=== PATIENT | male | born 1935 | race Caucasian/White ===

== ENCOUNTER 2017-03-18 06:55 | Outpatient (CLI) ==
[2015-09-21 15:29] VITALS: BMI 42.2
--- NOTE | 2017-03-19 13:25 | ECHO2D ---
Date of Exam: 03/18/17 Ordering Physician: BUD MARTINES Reason for Echo: SOB M-Mode Normal Adult Results LV Dimensions Normal Adult Results AoV Opening excursions >1.6 >1.6 LVEDD-base- 3.5-5.8 5.1 Ao root dimensions 2.0-3.7 3.6 LVESD-base- 3.1-4.6 L. Atrium dimensions 1.9-3.8 4.5 Post. Wall thickness 0.8-1.1 1.5 IV septum (thickness) 0.7-1.2 1.3 Post. Wall excursion 0.72-1.3 NORMAL Septal motion NORMAL Systolic motion R. Ventricular cavity 1.5-2.0 NORMAL LVEF 60% 67% Paradoxical septal wall motion NORMAL 2-D : NORMAL LEFT VENTRICULAR CONTRACTILITY--NORMAL VALVES--NO EFFUSION, NO THROMBUS, ENLARGED LEFT ATRIAL CAVITY--NORMAL LEFT VENTRICLE SIZE M-MODE: MV: NORMAL AV: NORMAL TV: NORMAL PV: CHAMBER SIZE: ENLARGED LEFT ATRIAL CAVITY WALL MOTION: NORMAL PERICARDIUM: NORMAL INTERPRETATION: 1. LEFT VENTRICULAR HYPERTROPHY WITH ENLARGED LEFT ATRIAL CAVITY (4.5CM) 2. NORMAL LEFT VENTRICULAR CONTRACTILITY 3. NORMAL VALVES MTDD
== END 2017-03-18 06:56 | disposition home or self-care (01) ==
LOC: CAR 06:55
PROVIDERS: ATTEND Internal Medicine
DX: R06.02 Shortness of breath (principal)
CPT/HCPCS: 93005; 93010

== ENCOUNTER 2017-03-19 06:48 | Outpatient (CLI) ==
[2015-09-21 15:29] VITALS: BMI 42.2
--- NOTE | 2017-03-19 13:01 | ECHOSTRESS ---
Date of Exam: 03/19/17 Ordering Physician: BUD MARTINES Reason for Echo: SOB, STRESS TEST--NO ISCHEMIA M-Mode Normal Adult Results LV Dimensions Normal Adult Results AoV Opening excursions >1.6 LVEDD-base- 3.5-5.8 Ao root dimensions 2.0-3.7 LVESD-base- 3.1-4.6 L. Atrium dimensions 1.9-3.8 Post. Wall thickness 0.8-1.1 IV septum (thickness) 0.7-1.2 Post. Wall excursion 0.72-1.3 Septal motion Systolic motion R. Ventricular cavity 1.5-2.0 LVEF 60% Paradoxical septal wall motion 2-D: NORMAL LEFT VENTRICULAR CONTRACTILITY--RESTING AND POST EXERCISE M-MODE: MV: AV: TV: PV: CHAMBER SIZE: WALL MOTION: NORMAL LEFT VENTRICULAR CONTRACTILITY--RESTING AND POST EXERCISE PERICARDIUM: INTERPRETATION: 1. NORMAL LEFT VENTRICULAR CONTRACTILITY--RESTING AND POST EXERCISE MTDD
--- NOTE | 2017-03-19 13:15 | STRESSMOD ---
Ordering Physician: BUD MARTINES Date of Test: 03/19/17 Medical History: SOB Current Medications: LISINOPRIL, GABAPENTIN, AMLODIPINE, GLIPIZIDE, DYAZIDE, FLOMAX, JANUVIA, METFORMIN, ASA, TAMSULOSIN Physical Findings: S1, S2, NO S3 Resting EKG: SINUS RHYTHM/PREMATURE ATRIAL CONTRACTIONS Target Heart Rate: 119/141 STAGE MPH/GRADE HEART RATE BPM BLOOD PRESSURE mmhg RHYTHM S-T SEGMENT UP DOWN SYMPTOMS,COMMENTS At Rest 80 138/60 SR X NONE 1 1.7/0% 110 150/72 SR X NONE 2 1.7/5% 3 1.7/10% 4 2.5/12% 5 3.4/14% 6 4.2/16% 7 5.18% Immediately after 123 SR X SHORT OF BREATH Total Time: 3:17 Maximum Heart Rate Reached: 123 Reason for Termination: SHORT OF BREATH 3 MINUTES POST EXERCISE: HR 96 BPM, BP 152/60 MMHG INTERPRETATION: 91% OXYGEN SATURATION WITH EXERCISE ON ROOM AIR 1. NO EVIDENCE OF ISCHEMIA BY ST-T WAVE 2. NO CHEST PAIN OR CHEST DISCOMFORT 3. BLOOD PRESSURE RESPONSE: NORMAL 4. FEW PAC'S AT REST AND WITH EXERCISE NORMAL LEFT VENTRICULAR CONTRACTILITY--RESTING AND POST EXERCISE MTDD
== END 2017-03-19 06:49 | disposition home or self-care (01) ==
LOC: CAR 06:48
PROVIDERS: ATTEND Internal Medicine
DX: R06.02 Shortness of breath (principal)

== ENCOUNTER 2017-08-15 16:08 | Inpatient (IN) ==
[2017-08-15] MEDS ORDERED: ATROPINE SULFATE PFS IVP PRN (16:36)
[2017-08-15] MEDS ORDERED: TYLENOL PO PRN (16:36)
[2017-08-15] MEDS ORDERED: NITROSTAT SL PRN (16:36)
[2017-08-15] MEDS ORDERED: VISTARIL INJ IM PRN (16:36)
[2017-08-15] MEDS ORDERED: LEVEMIR SUBCUT STA (16:40)
[2017-08-15 16:46] VITALS: BMI 38.3
[2017-08-15] MEDS ORDERED: PROAIR HFA IH PRN (17:04)
[2017-08-15] MEDS ORDERED: ALBUTEROL 0.083% NEB NEB PRN (17:04)
[2017-08-15] MEDS: SODIUM CHLORIDE 1,000 ML IV SCH (17:07)
[2017-08-15] MEDS: DIFLUCAN PO SCH (17:47)
[2017-08-15] MEDS: GLUCOPHAGE PO SCH (17:47)
[2017-08-15] MEDS: NYSTOP POWDER TP SCH (20:41)
[2017-08-15] MEDS: LOTRISONE 45 GM TP SCH (20:41)
[2017-08-15] MEDS: NEURONTIN PO SCH (20:42)
[2017-08-15] MEDS: NORVASC PO SCH (20:42)
[2017-08-15] MEDS ORDERED: LEVEMIR SUBCUT SCH (21:00)
[2017-08-16] MEDS: SODIUM CHLORIDE 1,000 ML IV SCH ×3 (06:19→19:31)
--- NOTE | 2017-08-16 07:43 | DI ---
EXAM: Chest two views HISTORY: Cough. FINDINGS: Compared to 09/21/2015. Heart size remains normal. Chronically elevated right hemidiaphr agm is redemonstrated. Subtle right base density likely represents atelectasis. Minimal pneumonia c ould appear similar although probably less likely. Normal vascularity. No pleural fluid. IMPRESSION: Probable mild right base atelectasis.
[2017-08-16] MEDS: GLUCOPHAGE PO SCH ×2 (08:12→16:29)
[2017-08-16] MEDS: ASPIRIN EC PO SCH (08:12)
[2017-08-16] MEDS: LEVEMIR SUBCUT SCH ×2 (09:15→21:36)
[2017-08-16] MEDS: ZESTRIL PO SCH (09:22)
[2017-08-16] MEDS: DIFLUCAN PO SCH (09:22)
[2017-08-16] MEDS: JANUVIA PO SCH (09:23)
[2017-08-16] MEDS: FLOMAX PO SCH (09:23)
[2017-08-16] MEDS: LOTRISONE 45 GM TP SCH ×3 (09:26→21:38)
[2017-08-16] MEDS: NYSTOP POWDER TP SCH ×3 (09:26→21:39)
[2017-08-16] MEDS: NEURONTIN PO SCH ×2 (09:27→21:35)
--- NOTE | 2017-08-16 10:28 | PCM.PROG ---
Attending Provider: ATTENDING PROVIDER: Dr. BUD MARTINES This patient is seen with Meri Kent, Nurse Practitioner. DATE OF SERVICE: 08/16/17 SUBJECTIVE: This 82 year old WHITE/ M was hospitalized 08/15/17. The patient is lying in bed alert. The patient is still weak and tired. Glucose still elevated after starting Levemir. REVIEW OF SYSTEMS: CONSTITUTIONAL: Positive for fatigue and weakness. No night sweats. lethargy. No fever or chills. HEENT: Eyes: No visual changes. No eye pain. No eye discharge. ENT: No runny nose. No epistaxis. No sinus pain. No odynophagia. No congestion. RESPIRATORY: No cough, no congestion. No hemoptysis. No shortness of breath. CARDIOVASCULAR: No angina symptoms. No CHF symptoms. No atypical chest pain for CAD. No palpitations. No orthopnea.. GASTROINTESTINAL: No abdominal pain. No nausea or vomiting. No diarrhea or constipation. No hematemesis. No hematochezia. GENITOURINARY: Positive for polyuria. No hematuria. No obstructive symptoms. No discharge. No pain. No significant abnormal bleeding. MUSCULOSKELETAL: No musculoskeletal pain; no joint swelling. NEUROLOGICAL: Awake, alert, oriented to time, place and person. No headache. No neck pain. No syncope. No seizures. No dizziness. PSYCHIATRIC: Not anxious. No depression. No suicidal thoughts. No homicidal thoughts. SKIN: Positive for yeast rash in groin area. No lesions. No wounds. ENDOCRINE: No unexplained weight loss. No weight gain. HEMATOLOGIC/LYMPHATIC: No anemia. No purpura. No petechiae. No prolonged or excessive bleeding. No palpable lymph nodes. PHYSICAL EXAMINATION: GENERAL: The patient is awake, alert and oriented, lying/sitting in bed in no distress. VITAL SIGNS: Temperature 98.0 F, Pulse 68, Respiratory Rate 18, BP 119/60, Pulse Ox 92% HEENT: Head normocephalic, atraumatic. Eyes: Extraocular muscles are intact. Pupils are equal, round and reactive to light and accommodation. Ears: No lesions. Nose appeared normal. Throat: No exudate or erythema. NECK: Supple. No JVD, no carotid bruit. No lymphadenopathy or thyromegaly. LUNGS: Diminished breath sounds. Clear to auscultation. Percussion note normal. Chest symmetrical. HEART: S1, S2, no S3. No murmurs. No cyanosis or clubbing. No ascites. Pulses: Dorsalis pedis and posterior tibial pulses +1 to +2 both sides. ABDOMEN: Soft. Non-tender. Bowel sounds active. No CVA tenderness. No mass felt. EXTREMITIES: No edema. Full range of motion of all extremities, equal. NEUROLOGIC: No focal deficit. Cranial nerves II through XII are grossly intact. No headache, no double vision or headache. SKIN: Red excoriation in groin area. Warm and dry. Intact. Turgor-normal. LYMPHATIC: No palpable lymph nodes/no lymphedema. MUSCULOSKELETAL: Normal joints with no swelling. Muscle tone is normal. LAB REVIEW: 08/16/17 04:02 08/16/17 04:02 08/16/17 04:02: Sodium 133 L, Potassium 4.1, Chloride 100, Carbon Dioxide 27, Anion Gap 10.1, BUN 41 H, Creatinine 1.52 H, Estimated GFR (MDRD) 44.00, BUN/ Creatinine Ratio 26.97, Glucose 424 H D, Calcium 9.0, Total Bilirubin < 0.3, AST 12 L, ALT 17, Alkaline Phosphatase 77, Total Protein 5.7 L, Albumin 2.4 L, Globulin 3.3, Albumin/Globulin Ratio 0.73 08/16/17 04:02: WBC 7.49, RBC 3.98 L, Hgb 11.4 L, Hct 34.3 L, MCV 86.2, MCH 28.6 , MCHC 33.2, RDW Coeff of Toby 12.7, Plt Count 230, Immature Gran % (Auto) 0.3, Neut % (Auto) 64.1, Lymph % (Auto) 24.0, [place] % (Auto) 7.1, Eos % (Auto) 4.1, Baso % (Auto) 0.4, Immature Gran # (Auto) 0.0, Neut # 4.8, Lymph # 1.8, [place] # 0.5, Eos # 0.3, Baso # 0.0 08/15/17 23:20: Urine Color Yellow, Urine Clarity Turbid, Urine pH 5.0, Ur Specific [place] 1.010, Urine Protein Negative, Urine Glucose (UA) 2+, Urine Ketones Trace, Urine Blood 1+, Urine Nitrite Negative, Urine Bilirubin Negative , Urine Urobilinogen 0.2, Ur Leukocyte Esterase 1+, Urine Microscopic WBC Tntc, Ur Squamous Epith Cells 2-5, Urine Bacteria 1+, Urine Mucus 1+ 08/15/17 17:04: B-Natriuretic Peptide 16 08/15/17 17:04: Sodium 129 L, Potassium 4.6, Chloride 96 L, Carbon Dioxide 23, Anion Gap 14.6, BUN 41 H, Creatinine 1.92 H, Estimated GFR (MDRD) 34.00, BUN/ Creatinine Ratio 21.35, Glucose 632 H*, Calcium 9.2, Total Bilirubin 0.3, AST 12 L, ALT 21, Alkaline Phosphatase 84, Total Protein 6.1, Albumin 2.6 L, Globulin 3.5, Albumin/Globulin Ratio 0.74, TSH 1.702, Free T4 1.10 08/15/17 17:04: WBC 9.91, RBC 4.16 L, Hgb 12.2 L, Hct 35.6 L, MCV 85.6, MCH 29.3 , MCHC 34.3, RDW Coeff of Toby 12.8, Plt Count 252, Immature Gran % (Auto) 0.6, Neut % (Auto) 72.3, Lymph % (Auto) 18.5, [place] % (Auto) 6.0, Eos % (Auto) 2.2, Baso % (Auto) 0.4, Immature Gran # (Auto) 0.1, Neut # 7.2 H, Lymph # 1.8, [place] # 0.6, Eos # 0.2, Baso # 0.0 08/15/17 16:41: Puncture Site Rr, O2 Saturation 92.0 L, ABG pH 7.356, ABG pCO2 40.9, ABG pO2 67.0 L, ABG HCO3 22.9, ABG Total CO2 24, ABG Base Excess -3 L, Srinivasa Test +, FiO2 % 21.0 ASSESSMENT: 1. Diabetes mellitus Type 2, uncontrolled 2. Skin candidiasis in groin area 3. Polyuria 4. Fatigue 5. Chronic kidney disease PLAN: 1. Clean catch 2. Increase Levemir to 30 mg twice a day Plan and coordination of the patient's care discussed in the presence of Flooring Sales Manager and nurse. CONDITION: Stable SCRIBED BY: RON CARROLL Geologic Technician scribed while in presence of service performed by Dr. Martines/Meri Kent APRN on 08/16/17 ([id number])
[2017-08-16] MEDS: NORVASC PO SCH (21:36)
[2017-08-16] MEDS: HUMULIN R SUBCUT PRN (21:37)
[2017-08-17] MEDS: DIFLUCAN PO SCH (09:09)
[2017-08-17] MEDS: FLOMAX PO SCH (09:09)
[2017-08-17] MEDS: GLUCOPHAGE PO SCH ×2 (09:10→17:29)
[2017-08-17] MEDS: ASPIRIN EC PO SCH (09:10)
[2017-08-17] MEDS: JANUVIA PO SCH (09:10)
[2017-08-17] MEDS: ZESTRIL PO SCH (09:10)
[2017-08-17] MEDS: NEURONTIN PO SCH ×2 (09:10→20:31)
[2017-08-17] MEDS: LEVEMIR SUBCUT SCH ×2 (09:11→21:35)
[2017-08-17] MEDS: LOTRISONE 45 GM TP SCH ×2 (09:11→20:31)
[2017-08-17] MEDS: NYSTOP POWDER TP SCH ×2 (09:12→20:31)
[2017-08-17] MEDS: HUMULIN R SUBCUT PRN ×3 (11:21→21:34)
[2017-08-17] MEDS: SODIUM CHLORIDE 1,000 ML IV SCH ×2 (17:22→20:31)
[2017-08-17] MEDS: MORPHINE 4 MG/ML VIAL IVP PRN (22:29)
[2017-08-18] MEDS: HUMULIN R SUBCUT PRN ×4 (05:35→20:53)
[2017-08-18] MEDS: SODIUM CHLORIDE 1,000 ML IV SCH (07:44)
[2017-08-18] MEDS: LEVEMIR SUBCUT SCH ×2 (09:44→20:54)
[2017-08-18] MEDS: GLUCOPHAGE PO SCH ×2 (09:45→16:46)
[2017-08-18] MEDS: DIFLUCAN PO SCH (09:45)
[2017-08-18] MEDS: NEURONTIN PO SCH ×2 (09:45→20:56)
[2017-08-18] MEDS: JANUVIA PO SCH (09:45)
[2017-08-18] MEDS: ZESTRIL PO SCH (09:45)
[2017-08-18] MEDS: LOTRISONE 45 GM TP SCH ×2 (09:46→21:41)
[2017-08-18] MEDS: FLOMAX PO SCH (09:46)
[2017-08-18] MEDS: NYSTOP POWDER TP SCH ×2 (09:46→21:41)
[2017-08-18] MEDS: ASPIRIN EC PO SCH (09:46)
[2017-08-18] MEDS ORDERED: MILK OF MAGNESIA PO PRN (16:17)
[2017-08-18] MEDS: MORPHINE 4 MG/ML VIAL IVP PRN (20:57)
[2017-08-19] MEDS: HUMULIN R SUBCUT PRN (06:15)
[2017-08-19] MEDS: ASPIRIN EC PO SCH (08:51)
[2017-08-19] MEDS: JANUVIA PO SCH (08:51)
[2017-08-19] MEDS: NEURONTIN PO SCH (08:52)
[2017-08-19] MEDS: FLOMAX PO SCH (08:52)
[2017-08-19] MEDS: GLUCOPHAGE PO SCH (08:52)
[2017-08-19] MEDS: LEVEMIR SUBCUT SCH (08:52)
[2017-08-19] MEDS: ZESTRIL PO SCH (08:52)
[2017-08-19] MEDS: LOTRISONE 45 GM TP SCH (08:53)
[2017-08-19] MEDS: NYSTOP POWDER TP SCH (08:53)
--- NOTE | 2017-08-19 09:50 | PCM.PROG ---
Attending Provider: ATTENDING PROVIDER: Dr. BUD MARTINES This patient is seen with Meri Kent, Nurse Practitioner. DATE OF SERVICE: 08/19/17 SUBJECTIVE: This 82 year old WHITE/ M was hospitalized 08/15/17. The patient is sitting in the chair, alert. Fatigue has improved. He is having no urinary incontinence. Sugar has been controlled. The patient states he is comfortable giving injections to himself. Diabetic teaching and education done extensively with he and his . REVIEW OF SYSTEMS: CONSTITUTIONAL: No night sweats. No fatigue, malaise, lethargy. No fever or chills. HEENT: Eyes: No visual changes. No eye pain. No eye discharge. ENT: No runny nose. No epistaxis. No sinus pain. No odynophagia. No congestion. RESPIRATORY: No cough, no congestion. No hemoptysis. No shortness of breath. CARDIOVASCULAR: No angina symptoms. No CHF symptoms. No atypical chest pain for CAD. No palpitations. No orthopnea.. GASTROINTESTINAL: No abdominal pain. No nausea or vomiting. No diarrhea or constipation. No hematemesis. No hematochezia. GENITOURINARY: No urgency. No frequency. No dysuria. No hematuria. No obstructive symptoms. No discharge. No pain. No significant abnormal bleeding. MUSCULOSKELETAL: No musculoskeletal pain; no joint swelling. NEUROLOGICAL: Awake, alert, oriented to time, place and person. No headache. No neck pain. No syncope. No seizures. No dizziness. PSYCHIATRIC: Not anxious. No depression. No suicidal thoughts. No homicidal thoughts. SKIN: No rash. No lesions. No wounds. ENDOCRINE: No unexplained weight loss. No weight gain. HEMATOLOGIC/LYMPHATIC: No anemia. No purpura. No petechiae. No prolonged or excessive bleeding. No palpable lymph nodes. PHYSICAL EXAMINATION: GENERAL: The patient is awake, alert and oriented, sitting in chair in no distress. VITAL SIGNS: Temperature 97.6 F, Pulse 65, Respiratory Rate 16, BP 120/69, Pulse Ox 96% HEENT: Head normocephalic, atraumatic. Eyes: Extraocular muscles are intact. Pupils are equal, round and reactive to light and accommodation. Ears: No lesions. Nose appeared normal. Throat: No exudate or erythema. NECK: Supple. No JVD, no carotid bruit. No lymphadenopathy or thyromegaly. LUNGS: Diminished breath sounds. Clear to auscultation. Percussion note normal. Chest symmetrical. HEART: S1, S2, no S3. No murmurs. No cyanosis or clubbing. No ascites. Pulses: Dorsalis pedis and posterior tibial pulses +1 to +2 both sides. ABDOMEN: Soft. Non-tender. Bowel sounds active. No CVA tenderness. No mass felt. EXTREMITIES: No edema. Full range of motion of all extremities, equal. NEUROLOGIC: No focal deficit. Cranial nerves II through XII are grossly intact. No headache, no double vision or headache. SKIN: Not dry. Intact. Turgor-normal. LYMPHATIC: No palpable lymph nodes/no lymphedema. MUSCULOSKELETAL: Normal joints with no swelling. Muscle tone is normal. LAB REVIEW: 08/19/17 05:43 08/19/17 05:43 08/19/17 05:43: Sodium 138, Potassium 4.7, Chloride 107, Carbon Dioxide 25, Anion Gap 10.7, BUN 21 H, Creatinine 1.04, Estimated GFR (MDRD) 69.00, BUN/ Creatinine Ratio 20.19, Glucose 273 H, Calcium 8.7, Total Bilirubin < 0.3, AST 14 L, ALT 24, Alkaline Phosphatase 72, Total Protein 5.7 L, Albumin 2.4 L, Globulin 3.3, Albumin/Globulin Ratio 0.73 08/19/17 05:43: WBC 6.41, RBC 3.97 L, Hgb 11.5 L, Hct 35.1 L, MCV 88.4, MCH 29.0 , MCHC 32.8, RDW Coeff of Toby 13.0, Plt Count 238, Immature Gran % (Auto) 0.6, Neut % (Auto) 63.6, Lymph % (Auto) 28.5, [place] % (Auto) 6.1, Eos % (Auto) 0.9, Baso % (Auto) 0.3, Immature Gran # (Auto) 0.0, Neut # 4.1, Lymph # 1.8, [place] # 0.4, Eos # 0.1, Baso # 0.0 ASSESSMENT: 1. Diabetes mellitus Type 2, uncontrolled 2. Skin candidiasis in groin area 3. Polyuria, resolved 4. Fatigue improving 5. Chronic kidney disease PLAN: 1. Discharge home 2. Will follow up in office on 3. Continue 4. Levemir 45 subcut b.i.d. 5. Diabetic foot and eye care discussed with the patient. He is comfortable with injections Plan and coordination of the patient's care discussed in the presence of Cytology Supervisor and nurse. CONDITION: Stable SCRIBED BY: RON CARROLL Sales Engineer Account Manager scribed while in presence of service performed by Dr. Martines/Meri Kent APRN on 08/19/17 ([id number])
--- NOTE | 2017-08-19 10:32 | CM.DICTOOL ---
ADMISSION: 08/15/17 16:08 DISCHARGE: 08/19/17 DATE OF SERVICE: 08/19/17 FINAL DIAGNOSIS UNCONTROLLED DM, TYPE 2 CAD HYPERTENSION COPD GERD BPH OSTEOARTHRITIS DEGENERATIVE DISK DISEASE METABOLIC SYNDROME OBESITY, BMI 38.3 APPENDECTOMY CHOLECYSTECTOMY PROSTATE BIOPSY COLONOSCOPY, 2006 PFT, 09/27 (MILD COPD) MODIFIED STRESS ECHO 03/19/17 NO EVIDENCE OF ISCHEMIA BY ST-T WAVE NO CHEST PAIN OR DISCOMFORT BLOOD PRESSURE RESPONSE NORMAL FEW PAC'S AT REST AND WITH EXERCISE NORMAL LEFT VENTRICULAR CONTRACTILITY (67%) RESTING AND POST EXERCISE LVH AND ENLARGED LEFT ATRIAL CAVITY (4.5 CM) LAST VITALS Temp Pulse Resp BP Pulse Ox 97.6 F 65 16 120/69 96 08/19/17 05:59 08/19/17 05:59 08/19/17 05:59 08/19/17 05:59 08/19/17 05:59 ACTIVE HOME MEDICATIONS Albuterol Sulfate (Proair Hfa) 2 puff IH QID PRN PRN Reason: Wheezing Albuterol Sulfate (Albuterol 0.083% Neb) 1 vial NEB QID PRN PRN Reason: Wheezing Amlodipine Besylate (Norvasc) 10 mg PO DAILY (DISCONTINUED) Aspirin (Aspirin Ec) 81 mg PO DAILYWM [facility] Last Admin: 08/19/17 08:51 Dose: 81 mg Gabapentin (Neurontin) 600 mg PO BID [facility] Last Admin: 08/19/17 08:52 Dose: 600 mg Lisinopril (Zestril) 20 mg PO DAILY [facility] Last Admin: 08/19/17 08:52 Dose: 20 mg Metformin HCl (Glucophage) 1,000 mg PO BIDWM [facility] Last Admin: 08/19/17 08:52 Dose: 1,000 mg Sitagliptin Phosphate (Januvia) 100 mg PO DAILY [facility] Last Admin: 08/19/17 08:51 Dose: 100 mg Tamsulosin HCl (Flomax) 0.4 mg PO DAILY [facility] Last Admin: 08/19/17 08:52 Dose: 0.4 mg ALLERGIES Iodinated Contrast- Oral and IV Dye [Iodinated Contrast Media - IV Dye] Adverse Reaction (Severe, Verified 09/21/15 15:13) Anaphylaxis iodine Adverse Reaction (Severe, Verified 09/21/15 15:13) Anaphylaxis NEW PRESCRIPTIONS: LEVEMIR 45 UNITS, ADMINISTER TWICE DAILY, ROTATE INJECTION SITES (OFFICE SAMPLES ) ADMINISTRATION SUPPLIES FOR INSULIN INJECTIONS CLOTRIMAZOLE (LOTRISONE 45 GM), APPLY TO AFFECTED AREA TWICE DAILY (HOSPITAL SUPPLY) NYSTATIN (NYSTOP POWDER), APPLY TO AFFECTED AREA TWICE DAILY (HOSPITAL SUPPLY) DO NOT TAKE YOUR NORVASC (AMLODIPINE BESYLATE) SMOKING: FORMER SMOKER STOPPED COMPLETELY IN 1984 DISEASE SPECIFIC EDUCATION: DIABETES INSULIN INJECTION SELF ADMINISTRATION LEVEMIR INSULIN HYPOGLYCEMIA/HYPERGLYCEMIA FOOT AND EYE CORRECTION MEDICATIONS NEW MEDICATIONS FOLLOW UP LAB REVIEW: 08/19/17 05:43 08/19/17 05:43 08/19/17 05:43: Sodium 138, Potassium 4.7, Chloride 107, Carbon Dioxide 25, Anion Gap 10.7, BUN 21 H, Creatinine 1.04, Estimated GFR (MDRD) 69.00, BUN/ Creatinine Ratio 20.19, Glucose 273 H, Calcium 8.7, Total Bilirubin < 0.3, AST 14 L, ALT 24, Alkaline Phosphatase 72, Total Protein 5.7 L, Albumin 2.4 L, Globulin 3.3, Albumin/Globulin Ratio 0.73 08/19/17 05:43: WBC 6.41, RBC 3.97 L, Hgb 11.5 L, Hct 35.1 L, MCV 88.4, MCH 29.0 , MCHC 32.8, RDW Coeff of Toby 13.0, Plt Count 238, Immature Gran % (Auto) 0.6, Neut % (Auto) 63.6, Lymph % (Auto) 28.5, [place] % (Auto) 6.1, Eos % (Auto) 0.9, Baso % (Auto) 0.3, Immature Gran # (Auto) 0.0, Neut # 4.1, Lymph # 1.8, [place] # 0.4, Eos # 0.1, Baso # 0.0 PLAN: DISCHARGE HOME TODAY RETURN TO SEE DR. MARTINES ON 08/22/17 AT 9:45 A.M. KEEP YOUR APPOINTMENT WITH THE GROUP CAPTAIN AT [facility] ON 08/27/17 AT 9:30 A.M. RESUME YOUR HOME MEDICATIONS DO NOT CONTINUE YOUR NORVASC (AMLODIPINE BESYLATE) NEW PRESCRIPTIONS LEVEMIR 45 UNITS, ADMINISTER TWICE DAILY, ROTATE INJECTION SITES (OFFICE SAMPLES ) ADMINISTRATION SUPPLIES FOR INSULIN INJECTIONS CLOTRIMAZOLE (LOTRISONE 45 GM), APPLY TO AFFECTED AREA TWICE DAILY (HOSPITAL SUPPLY) NYSTATIN (NYSTOP POWDER), APPLY TO AFFECTED AREA TWICE DAILY (HOSPITAL SUPPLY) ACTIVITY GET PLENTY OF REST AT HOME. GRADUALLY INCREASE YOUR ACTIVITY LEVEL ACCORDING TO YOUR TOLERATION DIET 1800 [address] ADA CONSISTENT CARBS SUMMARY THE PATIENT IS ALERT AND ORIENTED X3. HE CURRENTLY RESIDES AT HOME WITH HIS SPOUSE. HE HAS BEEN INDEPENDENT WITH ADL'S AND DESIRES TO RETURN HOME AT DISCHARGE. AT HOME HE HAS OXYGEN, NEBULIZER, GLUCOMETER AND TESTING SUPPLIES. THE NURSING STAFF HAVE PROVIDED TEACHING/TRAINING WITH REGARD TO SELF ADMINISTRATION OF THE LEVEMIR INSULIN. MR. PARRY IS ABLE TO DEMONSTRATE PROPER TECHNIQUE FOR SELF-INJECTIONS. HE AND HIS SPOUSE ARE MOTIVATED TO LEARN MORE ABOUT GAINING CONTROL OF HIS DIABETES THROUGH LIFE-STYLE CHANGES. THEY WILL RETURN TO [facility] FOR FURTHER DIABETIC TEACHING FOLLOWING DISCHARGE. MR. PARRY COMPLAINS OF HAVING NEUROPATHY-TYPE SYMPTOMS IN HIS FEET (BURNING) . HIS SKIN TURGOR IS FAIR TO GOOD AND WITHOUT DECUBITUS ULCERS. HE HAS A FUNGAL RASH AT THE GROIN AREA THAT HAS BEEN TREATED WITH ANTI-FUNGAL OINTMENTS AND POWDER. HE WILL BE INSTRUCTED TO APPLY THE OINTMENT TO THE AFFECTED AREA FOLLOWING DISCHARGE. HE SAYS THE URINARY INCONTINENCE HAS RESOLVED AND THE FATIGUE HE WAS EXPERIENCING PRIOR TO ADMISSION HAS ALSO IMPROVED. HE IS AWARE AND AGREEABLE FOR TODAY'S DISCHARGE PLANS. CURRENT CODE STATUS FULL CODE SHANNON CONTI APRN BUD MARTINES M.D.
[2017-08-19 10:46] VITALS: BP 131/66; TEMP 98.5
--- NOTE | 2017-08-20 09:15 | PN ---
DATE OF SERVICE: 08/18/17 SUBJECTIVE: 82 year old white male hospitalized with uncontrolled diabetes mellitus, weakness, dehydration. The patient's condition has steadily improved. His kidney functions have improved. He is feeling a lot better and stronger. He is feeling comfortable about Levemir and insulin shots. The patient has been on 40 units twice a day now. His blood sugar is close to 200. REVIEW OF SYSTEMS: CONSTITUTIONAL: No night sweats. No fatigue, malaise, lethargy. No fever or chills. HEENT: Eyes: No visual changes. No eye pain. No eye discharge. ENT: No runny nose. No epistaxis. No sinus pain. No sore throat. No odynophagia. No congestion. RESPIRATORY: No cough, no congestion. No hemoptysis. No shortness of breath. CARDIOVASCULAR: No angina symptoms. No CHF symptoms. No atypical chest pain for CAD. No palpitations. No orthopnea. GASTROINTESTINAL: No abdominal pain. No nausea or vomiting. No diarrhea or constipation. No hematemesis. No hematochezia. GENITOURINARY: No urgency. No frequency. No dysuria. No hematuria. No obstructive symptoms. No discharge. No pain. No significant abnormal bleeding. MUSCULOSKELETAL: No musculoskeletal pain; no joint swelling. NEUROLOGICAL: No headache. No neck pain. No syncope. No seizures. No dizziness. PSYCHIATRIC: Not anxious. No depression. No suicidal thoughts. No homicidal thoughts. SKIN: No rash. No lesions. No wounds. ENDOCRINE: No unexplained weight loss. No weight gain. HEMATOLOGIC/LYMPHATIC: No anemia. No purpura. No petechiae. No prolonged or excessive bleeding. No palpable lymph nodes. PHYSICAL EXAMINATION: GENERAL: The patient is oriented to time, place and person. VITAL SIGNS: Temperature 97.4, pulse 64, respiratory rate 16, blood pressure 110/54 and pulse ox 95%. HEENT: Head normocephalic, atraumatic. Eyes: Extraocular muscles are intact. Pupils are equal, round and reactive to light and accommodation. Ears: No lesions. Nose appeared normal. Throat: No exudate or erythema. NECK: Supple. No JVD, no carotid bruit. No lymphadenopathy or thyromegaly. LUNGS: Decreased breath sounds but clear to auscultation. Percussion note normal. Chest symmetrical. HEART: S1, S2, no S3. No murmurs. No cyanosis or clubbing. No ascites. Pulses: Dorsalis pedis and posterior tibial pulses +1 to +2 both sides. ABDOMEN: Soft. Nontender. Bowel sounds active. No CVA tenderness. No mass felt. EXTREMITIES: No edema. Full range of motion of all extremities, equal. NEUROLOGIC: No focal deficit. Cranial nerves II through XII are grossly intact. No headache, no double vision or headache. SKIN: Not dry. Intact. Turgor - normal. LYMPHATIC: No palpable lymph nodes/no lymphedema. MUSCULOSKELETAL: Normal joints with no swelling. Muscle tone is normal. LABS: Hgb 11.2, hct 33, WBC 7,000 normal differential, creatinine 1, BUN 25, potassium 3.7. Telemetry shows since rhythm. The patient had echocardiogram done to evaluate LV function. The patient has an LVH, enlarged LA cavity, Normal valves and normal LV contractility. ASSESSMENT: 1. Diabetes mellitus 2. Obesity which is almost morbid obesity with BMI of 39 3. Neuropathy 4. Hypertension 5. Dyslipidemia PLAN: 1. Discontinue Telemetry 2. Discontinue IV fluids. 3. The patient was advised workup for coronary insufficiency in a way of a stress test which he has declined at present time. 4. Continue Insulin 5. Educated about diabetes and it's complications. 6. Strongly advised to have eyes checks, complications about the eyes and the kidneys discussed; arthrosclerosis, coronary disease discussed is in the room. CONDITION: Stable PROGNOSIS: Depends on the patient's modification of his lifestyle TIME SPENT: More than 30 minutes. Plan and coordination of the patient's care discussed in the presence of nurse. SIM
--- NOTE | 2017-08-20 09:35 | ECHO2D ---
Date of Exam: 08/18/17 Ordering Physician: BUD MARTINES Room #: 114 Reason for Echo: DM2, HTN, CARDIOMEGALY, SOB M-Mode Normal Adult Results LV Dimensions Normal Adult Results AoV Opening excursions >1.6 >1.6 LVEDD-base- 3.5-5.8 4.5 Ao root dimensions 2.0-3.7 3.6 LVESD-base- 3.1-4.6 L. Atrium dimensions 1.9-3.8 4.6 Post. Wall thickness 0.8-1.1 1.5 IV septum (thickness) 0.7-1.2 1.5 Post. Wall excursion 0.72-1.3 NORMAL Septal motion NORMAL Systolic motion R. Ventricular cavity 1.5-2.0 NORMAL LVEF 60% 68% Paradoxical septal wall motion NORMAL 2-D : 2-D M Mode Echocardiogram was performed using apical four chamber and left parasternal long and short axis views. Mitral, tricuspid and aortic valves appear to be normal. Contractility of the left ventricle seems to be normal, so is the cavity size. Enlarged left atrial cavity. Aortic root appears to be normal. There is no pericardial effusion. There is no thrombus noted in the left ventricular or left aortic cavity. No mitral valve prolapse noted. M-MODE: MV: NORMAL AV: NORMAL TV: NORMAL PV: CHAMBER SIZE: ENLARGED LEFT ATRIAL CAVITY WALL MOTION: NORMAL PERICARDIUM: NORMAL INTERPRETATION: 1. LEFT VENTRICULAR HYPERTROPHY WITH ENLARGED LEFT ATRIAL CAVITY 2. NORMAL LEFT VENTRICULAR CONTRACTILITY 3. NORMAL VALVES MTDD
--- NOTE | 2017-08-22 12:47 | PN ---
DATE OF SERVICE: 08/19/17 SUBJECTIVE: 82 year old white male hospitalized with uncontrolled diabetes mellitus. The patient's condition has steadily improved. The patient was seen and examined with the nurse practitioner. The patient has been thoroughly explained about diabetes and its complications in detail involving the eyes. Advised strongly to have eye MD examine him every year and now as soon as possible. Also discussed about neuropathy, diabetic food ulcers and how to take care of the feet. Also talked about kidneys and the effect on the kidneys from diabetes. He has to bring A1C between 6 to 7. He seems to be determined. CONDITION: Stable. MTDD
--- NOTE | 2017-08-22 12:49 | PN ---
BILLING 08/15/17 LEVEL 5 08/16/17 INTERMEDIATE 08/17/17 INTERMEDIATE 08/18/17 INTERMEDIATE 08/19/17 D MTDD
--- NOTE | 2017-08-28 09:46 | HP ---
DATE OF SERVICE: 08/15/17 HISTORY OF PRESENT ILLNESS: This is a 82-year-old patient who had glucose of 466 yesterday, 475 today. He has a rash in groin and feeling bad. Incontinent, polyuria, polydipsia and weak. His abdomen feels bloated. Medications have not changed. PAST MEDICAL HISTORY: Hypertension Diabetes mellitus Type 2 CKD stage 3 Obesity LVH Neuropathy DJD spine Elevated PSA Chronic bronchitis PAST SURGICAL HISTORY: Colonoscopy 2006 Appendix Eye (right and left) Gallbladder REVIEW OF SYSTEMS: CONSTITUTIONAL: No fever, no fatigue. HEENT: No sinus drainage, no sore throat. RESPIRATORY: No cough, no congestion. CARDIOVASCULAR: No atypical chest pain for coronary artery disease. No angina , CHF symptoms, palpitations or shortness of breath. GASTROINTESTINAL: No melena or abdominal pain. No GERD. GENITOURINARY: No hematuria, no prostatism, no polyuria. BUILDING RIGGER: No blackout, no dizziness, no headache, no double vision. MUSCULOSKELETAL: No osteoarthritis pain, no joint swelling. ENDOCRINE: No weight loss, no weight gain. SKIN: Not dry, no rash. PSYCHIATRIC: Not anxious, no depression, no suicidal thoughts, no homicidal thoughts. SOCIAL HISTORY: ; children 7; retired. Smoker - 1.5 packs per day for 20 years, quit 1979. No illicit drug use. FAMILY HISTORY: Father is . Mother is . Brother(s) 4; sister(s) 7. MEDICATIONS: (HOME) Januvia Glucophage Zestril Aspirin Norvasc ProAir Hfa Albuterol Gabapentin Flomax ALLERGIES: IODINE- X-RAY DYE PHYSICAL EXAMINATION: V/S: Pulse 92, BP 122/40, temperature 97.3, 02 sat 95%. Weight 243.6 lbs; height 5'7". GENERAL APPEARANCE: Oriented times three. HEENT: Normal. NECK: No JVP, no bruits. RESPIRATORY: Decreased breath sounds. Lungs are clear. CARDIOVASCULAR: S1, S2, no S3, no murmurs. No cyanosis, clubbing. No ascites. GI/ABDOMEN: No tenderness. Bowel sounds are active. EXTREMITIES: Trace edema, pulses +1, equal. BUILDING RIGGER: Deep tendon reflexes, sensory, motor and gait all normal. RECTAL/PROSTATE: 09/28 Dr. Ivey. Colonoscopy 2006, refused. Foot care discussed. ASSESSMENT: 1. DIABETES MELLITUS, UNCONTROLLED 2. DERMATITIS GROIN FUNGAL/BALANITIS 3. WEIGHT LOSS/POLYURIA/POLYDIPSIA 4. CHRONIC BRONCHITIS 5. COPD 6. DIABETES MELLITUS TYPE 2 7. DJD SPINE 8. OBESITY 9. HYPERTENSION/LVH 10. ELEVATED PSA 11. SHORTNESS OF BREATH/FATIGUE 12. NEUROPATHY PLAN: 1. Admit with routine telemetry orders 2. Insulin shot teaching 3. Cardiac markers 4. 1000 cc's NS 12 hourly 5. Accu-Check with coverage 6. 20 units Levemir subcut once STAT and twice a day 7. ABG now 8. T4, TSH, BNP 9. Lotrisone cream and Nystatin powder to groin b.i.d. 10. Baby ASA per day 11. Diflucan 150 mg p.o. daily times three days 12. Metformin 1000 mg p.o. b.i.d. 13. Lisinopril 20 mg p.o. daily 14. Gabapentin 600 mg p.o. b.i.d. 15. Amlodipine 10 mg p.o.a t h.s. daily 16. Januvia 100 mg p.o. daily 17. Daily CBC and CMP 18. Flomax 0.4 mg p.o. daily 19. Dietary consult TIME SPENT: More than 70 minutes. MTDD
--- NOTE | 2017-09-06 10:05 | DS ---
DATE OF SERVICE: 08/19/17 FINAL DIAGNOSIS: 1. DIABETES MELLITUS, UNCONTROLLED 2. HYPERTENSION 3. COPD 4. GERD 5. BPH 6. OSTEOARTHRITIS 7. DEGENERATIVE DISK DISEASE 8. METABOLIC SYNDROME 9. OBESITY, BMI 38.3 10. LVH BY ECHO 11. APPENDECTOMY 12. CHOLECYSTECTOMY 13. PROSTATE BIOPSY 14. COLONOSCOPY, 2006 15. PFT 09/27 (MILD COPD) 16. MODIFIED STRESS ECHO 03/19/17 17. NO EVIDENCE OF ISCHEMIA BY ST-T WAVE 18. NO CHEST PAIN OR DISCOMFORT 19. BLOOD PRESSURE RESPONSE NORMAL 20. FEW PAC'S AT REST AND WITH EXERCISE 21. NORMAL LEFT VENTRICULAR CONTRACTILITY (67%) RESTING AND POST EXERCISE 22. LVH AND ENLARGED LEFT ATRIAL CAVITY (4.5 CM) LAST V/S: Temperature 97.6, pulse 65, respiratory rate 16, BP 120/69, pulse ox 96 DISCHARGE INSTRUCTIONS: 1. Return to see Dr. Woods on 08/22/17 at 9:45 a.m. 2. Keep your appointment with the information technology instructor at [facility] on 08/27 at 9:30 a.m. 3. Resume your home medications. Do not continue your Norvac (Amlodipine Besylate) MEDICATIONS AT DISCHARGE: Albuterol (ProAir Hfa) two puff IH q.i.d. p.r.n. Albuterol one vial neb q.i.d. p.r.n. Amlodipine (NORVASC) DISCONTINUED Aspirin 81 mg p.o. daily with meal Neurontin 600 mg p.o. b.i.d. DORCAS Zestril 20 mg p.o. daily DORCAS Glucophage 1,000 mg p.o. b.i.d. with meal DORCAS Januvia 100 mg p.o. daily DORCAS Flomax 0.4 mg p.o. daily DORCAS NEW PRESCRIPTIONS: Levemir 45 units, administer twice daily, Rotate injection sites (office samples ) Administration supplies for insulin injections Clotrimazole (Lotrisone 45 gm) apply to affected area twice daily (hospital supply) Nystatin (Nystop powder) apply to affected area twice daily (hospital supply) DO NOT TAKE YOUR NORVASC (AMLODIPINE BESYLATE) DIET INSTRUCTIONS: 1800 Calorie ADA Consistent Carbs ACTIVITY: Get plenty of rest at home. Gradually increase your activity level according to your toleration. SMOKING: Former smoker Stopped completely in 1984 DISEASE SPECIFIC EDUCATION: Diabetes Insulin injection self administration Levemir Insulin Hypoglycemia/Hyperglycemia Foot and eye custodial medications New medications Follow up HOSPITAL COURSE: This is an 82-year-old white male who was a direct admit from our office. He presented to our office with extreme weakness, urinary incontinence, polyuria, extreme fatigue. He was drowsy, unable to hold his head up. He is experiencing decreased appetite and nausea. The states they checked his blood sugar once at home and was in the 500s. We checked it in the office and the sugar was 536. When he arrived at the hospital on [facility] his sugar was in the 600s. He has been diabetic Type 2 for quite some time, takes 100 mg of Januvia as well as 1000 mg of Metformin twice daily. For some reason this has laurita rocketed and was out of control, probably due to diet and lifestyle. The patient was admitted, started on Levemir initially at 30 units twice daily, which eventually increased. Today, on day of discharge, 45 units twice daily. He was started on IV fluids NS at 75 cc/hr. Today, on day of discharge, his electrolytes are normal. He was not in acidosis yet. Over the course of the past several days, the urinary incontinence has stopped which was likely due to just polyuria and uncontrolled diabetes mellitus type 2. His kidney functions and electrolytes have improved. Today, sodium 138, potassium 4.7, BUN 21, creatinine 1.04, hemoglobin 11.5, hematocrit 35.1, white count 6.41. Extensive diabetic teaching has been done regarding injections of Levemir insulin. We are going to have an outpatient consult with the information technology instructor, his and the patient regarding diabetic diet. Blood sugar control has been discussed extensively with him. Also routine foot and eye care for diabetics has also been discussed. He needs to monitor his blood sugar regularly at home. He has been provided a prescription for a glucose monitor as well as strips to go with it and all the equipment. He will be discharged home today in stable condition. Temperature 97.6, heart rate 65, respirations 16, BP 120/69, pulse ox 96%. His appetite has returned. He is no longer nauseated. Again, his urinary incontinence has resolved. He is not fatigued. He has been up and about walking around. We will followup with him next week in the office. TIME SPENT: More than 60 minutes. SIM
== END 2017-08-19 11:40 | disposition home or self-care (01) | DRG 639 ==
LOC: MEDSURG B 16:08
PROVIDERS: ADMIT Internal Medicine; ATTEND Internal Medicine
DX: E11.65 Type 2 diabetes mellitus with hyperglycemia (principal); J44.9 Chronic obstructive pulmonary disease, unspecified; I10 Essential (primary) hypertension; I12.9 Hypertensive chronic kidney disease with stage 1 through stage 4 chronic kidney disease, or unspecified chronic kidney disease; E11.22 Type 2 diabetes mellitus with diabetic chronic kidney disease; N18.3 Chronic kidney disease, stage 3 (moderate); I51.7 Cardiomegaly; R32 Unspecified urinary incontinence; B37.2 Candidiasis of skin and nail; R53.83 Other fatigue; E78.5 Hyperlipidemia, unspecified; G62.9 Polyneuropathy, unspecified; K21.9 Gastro-esophageal reflux disease without esophagitis; N40.0 Benign prostatic hyperplasia without lower urinary tract symptoms; M19.90 Unspecified osteoarthritis, unspecified site; E88.81 Metabolic syndrome and other insulin resistance; E66.9 Obesity, unspecified; Z79.84 Long term (current) use of oral hypoglycemic drugs; Z79.899 Other long term (current) drug therapy; Z68.38 Body mass index [BMI] 38.0-38.9, adult; Z87.891 Personal history of nicotine dependence
CPT/HCPCS: 36415; 80053; 81001; 82803; 82962; 83880; 84439; 84443; 85025; 87086; 93005; 93010; 97802

== ENCOUNTER 2017-08-29 09:35 | Outpatient (CLI) ==
[2017-08-29 10:59] VITALS: BMI 37.5
== END 2017-08-29 09:36 | disposition home or self-care (01) ==
LOC: DIETCN 09:35
PROVIDERS: ATTEND Internal Medicine
DX: E11.9 Type 2 diabetes mellitus without complications (principal)

== ENCOUNTER 2018-10-01 07:55 | Outpatient (CLI) ==
--- NOTE | 2018-10-01 09:49 | CT ---
EXAM: CT of the abdomen pelvis without contrast History: Abdominal pain and trauma, lower back pain. Right flank pain Comparison: None available. Technique: Multiplanar CT images through the abdomen pelvis were obtained without the administration of IV contrast. Findings: Elevated right hemidiaphragm with right basilar subsegmental atelectasis. Moderate narrow ing of bilateral hip joints with osteophyte formation. No acute osseous abnormalities. Prominent an terior osteophytes within the lumbar spine. The liver is fatty. Status post cholecystectomy. Spleen is unremarkable. No hydronephrosis. 4.5 c m left renal cyst. 1.8 cm hyperattenuating lesion within the left kidney. 5.5 cm cyst within the ri ght kidney containing written calcifications. Adrenal glands are unremarkable. No peripancreatic in flammation. There is some pancreatic atrophy. No bowel obstruction. No bladder wall thickening. P rostate is not enlarged. Fat-containing left inguinal hernia. No free air and no ascites. Impression: 1. No acute findings within the abdomen or pelvis. 2. Hepatic steatosis. 3. Complicated bilateral renal cysts. Recommend follow-up CT or MRI renal mass protocol in 6 months to document stability. 4. Fat-containing left inguinal hernia
--- NOTE | 2018-10-01 10:53 | DI ---
EXAM: AP and oblique views of the bilateral ribs. HISTORY: Rib pain, fall COMPARISON: 08/15/2017 FINDINGS: Elevation of the right hemidiaphragm is again seen with mild right basilar atelectasis. No right or left rib fracture is identified. IMPRESSION: No rib fracture identified.
--- NOTE | 2018-10-01 12:08 | DI ---
EXAM: Three views of the thoracic spine HISTORY: Back pain, fall COMPARISON: 08/15/2017 chest x-ray FINDINGS: The thoracic vertebral bodies are normal in height. There is multilevel anterior osteophyte formatio n. No listhesis is evident. IMPRESSION: No compression deformity or listhesis identified. Mild to moderate multilevel thoracic degenerative disc disease.
--- NOTE | 2018-10-01 12:14 | DI ---
EXAM: Three views of the lumbar spine HISTORY: Low back pain, fall COMPARISON: None available FINDINGS: There are five lumbar-type vertebrae. The lumbar vertebral bodies are normal in height. No signific ant disc height loss is seen. There is prominent multilevel anterior osteophyte formation. No listh esis is identified. Mild to moderate multilevel facet arthropathy is seen. Degenerative changes of both hips are noted. Atherosclerotic calcifications are noted. IMPRESSION: No compression deformity or listhesis identified. Mild multilevel degenerative disc disease with findings suggestive of DISH. Mild to moderate multilevel facet arthropathy.
== END 2018-10-01 07:56 | disposition home or self-care (01) ==
LOC: RAD 07:55
PROVIDERS: ATTEND Internal Medicine
DX: M54.5 Low back pain (principal); R07.81 Pleurodynia; W19.XXXA Unspecified fall, initial encounter

== ENCOUNTER 2018-10-06 07:22 | Outpatient (CLI) ==
--- NOTE | 2018-10-06 09:19 | US ---
EXAM: Renal ultrasound. History: Bilateral renal cysts. Comparison: CT abdomen pelvis 10/01/2018 Technique: Multiple sonographic images through the kidneys were obtained. Color duplex Doppler was used to interrogate vascular flow. Findings: The right kidney measures 12.2 cm in long length demonstrating normal cortical echogenicity without e vidence for hydronephrosis or shadowing calculus. 5.1 cm anechoic right renal cyst. The left kidney measures 11.6 cm in long length demonstrating normal cortical echogenicity without ev idence for hydronephrosis or shadowing calculus. 5.0 cm anechoic left renal cyst. The bladder is not well distended. No focal bladder wall thickening. Impression: Simple bilateral renal cysts
--- NOTE | 2018-10-06 09:25 | CT ---
EXAM: CT of the thoracic spine without contrast History: Thoracic back pain. Comparison: Lumbar spine CT 10/06/2018, thoracic spine radiograph 10/01/2018 Technique: Multiplanar CT images through the thoracic spine were obtained without the administration of IV contrast Findings: Calcified mediastinal lymph nodes. The visualized lungs are clear. No acute fracture or subluxation of the thoracic spine. Mild to moderate multilevel disc space narro wing. Large flowing anterior osteophytes are seen at multiple levels. There is prominent facet hype rtrophy at T10-11 with mild to moderate central canal stenosis. Impression: 1. No acute osseous abnormality of the thoracic spine. 2. Mild to moderate degenerative disc disease. 3. Diffuse idiopathic skeletal hyperostosis of the thoracic spine. 4. Mild to moderate central canal stenosis at T10-11
--- NOTE | 2018-10-06 09:28 | CT ---
EXAM: CT of the lumbar spine without contrast History: Lower back pain. Technique: Multiplanar CT images through the lumbar spine were obtained without the administration o f IV contrast Findings: Partially visualized bilateral renal cysts. Atherosclerotic vascular calcifications of th e abdominal aorta. No acute fracture or subluxation of the lumbar spine. Mild to moderate multileve l disc space narrowing. Large anterior osteophytes are seen. T12-L1: Posterior disc osteophyte complex with mild central canal stenosis. Mild to moderate bilater al bony neural foraminal narrowing secondary to ligamentous and facet hypertrophy. L1-L2: No significant bony central canal stenosis or bony neural foraminal narrowing. L2-L3: Small disc bulge effacing anterior thecal sac with mild central canal stenosis. Mild bilater al bony neural foraminal narrowing secondary to ligamentous and facet hypertrophy. L3-L4: Small disc bulge effacing anterior thecal sac with mild central canal stenosis. Moderate to severe bilateral bony neural foraminal narrowing secondary to ligamentous and facet hypertrophy and w orse on the right. L4-L5: Small disc bulge effacing anterior thecal sac with no significant central canal stenosis. Mo derate to severe bilateral bony neural foraminal narrowing secondary to ligamentous and facet hypertr ophy. L5-S1: No significant bony central canal stenosis. Severe bilateral bony neural foraminal narrowing secondary to ligamentous and facet hypertrophy. Impression: 1. No acute osseous abnormality of the lumbar spine. 2. Degenerative changes with level by level analysis as detailed above. 3. Diffuse idiopathic skeletal hyperostosis
== END 2018-10-06 07:23 | disposition home or self-care (01) ==
LOC: RAD 07:22
PROVIDERS: ATTEND Internal Medicine
DX: N28.1 Cyst of kidney, acquired (principal); M54.9 Dorsalgia, unspecified
CPT/HCPCS: 36415; 82565

== ENCOUNTER 2019-05-12 14:17 | Inpatient (IN) ==
[~2019-05-12 14:17] MED LIST: ALDACTONE ONE; COZAAR ONE; LASIX ONE; ZAROXOLYN ONE
[2019-05-12] MEDS ORDERED: NEURONTIN ONE (15:00)
[2019-05-12] MEDS ORDERED: TYLENOL PO PRN (16:41)
[2019-05-12] MEDS ORDERED: ATROPINE SULFATE PFS IVP PRN (16:41)
[2019-05-12] MEDS ORDERED: VISTARIL INJ IM PRN (16:41)
[2019-05-12] MEDS ORDERED: NITROSTAT SL PRN (16:41)
[2019-05-12] MEDS ORDERED: GLUCOPHAGE ONE ×2 (16:54→17:00)
[2019-05-12] MEDS ORDERED: LEVEMIR SUBCUT ONE ×2 (16:57→17:00)
[2019-05-12] MEDS ORDERED: ZAROXOLYN PO STA (17:34)
[2019-05-12] MEDS ORDERED: GLUCOPHAGE PO SCH (18:00)
[2019-05-12] MEDS ORDERED: LEVEMIR SUBCUT SCH (21:00)
[2019-05-13] MEDS ORDERED: LASIX IVP SCH (06:30)
[2019-05-13] MEDS: ASPIRIN EC PO SCH (08:28)
[2019-05-13] MEDS: COZAAR PO SCH (08:28)
--- NOTE | 2019-05-13 08:30 | US ---
EXAM: Right upper quadrant abdominal ultrasound. History: Hepatic steatosis. Comparison: CT abdomen pelvis 10/01/2018 Technique: Multiple sonographic images through the abdomen were obtained. Color duplex Doppler was used to interrogate vascular flow. Findings: The liver is diffusely echogenic. No focal liver lesions identified sonographically. There is anteg rade flow within the main portal vein. Status post cholecystectomy. Pancreas was not well visualized due to shadowing bowel gas. Common bile duct measures 0.5 cm in fausto iber. No abdominal ascites. 4.7 cm right renal parapelvic cyst. Impression: 1. Hepatic steatosis. 2. Status post cholecystectomy
--- NOTE | 2019-05-13 08:50 | DI ---
EXAM: Two views of the chest. History: Ascites. Comparison: Chest radiograph 08/15/2017 Findings: Heart size is normal. Atherosclerotic vascular calcifications. Elevated right hemidiaphr agm again noted. No focal consolidation. No appreciable pleural fluid and no pneumothorax. No acut e osseous abnormalities. Impression: No acute cardiopulmonary process. Stable elevated right hemidiaphragm
[2019-05-13] MEDS ORDERED: ALDACTONE PO SCH (09:00)
[2019-05-13] MEDS ORDERED: FLOMAX PO SCH (09:00)
[2019-05-13] MEDS ORDERED: GLUCOPHAGE PO SCH ×2 (09:00→09:30)
[2019-05-13] MEDS ORDERED: JANUVIA PO SCH (09:00)
[2019-05-13] MEDS ORDERED: PROSCAR PO SCH (09:00)
[2019-05-13] MEDS: NEURONTIN PO SCH ×3 (09:35→20:35)
[2019-05-13] MEDS: FLOMAX PO SCH (09:36)
[2019-05-13] MEDS: JANUVIA PO SCH (09:36)
[2019-05-13] MEDS: LEVEMIR SUBCUT SCH ×2 (09:37→20:36)
[2019-05-13] MEDS: PROSCAR PO SCH (10:01)
--- NOTE | 2019-05-13 14:15 | PCM.PROG ---
Attending Provider: ATTENDING PROVIDER: Dr. BUD MARTINES DATE OF SERVICE: 05/13/19 SUBJECTIVE: This 83 year old /WHITE M was hospitalized 05/12/19 with weight gain, leg edema with ascites type of symptoms. The patient has gained 20-25 pounds in past 4 weeks. He has had two deaths in the family in the past few weeks. He is noncompliant of medications and lifestyle. REVIEW OF SYSTEMS: CONSTITUTIONAL: No night sweats. No fatigue, malaise, lethargy. No fever or chills. HEENT: Eyes: No visual changes. No eye pain. No eye discharge. ENT: No runny nose. No epistaxis. No sinus pain. No odynophagia. No congestion. RESPIRATORY: No cough, no congestion. No hemoptysis. Shortness of breath. Breathing better. CARDIOVASCULAR: No angina symptoms. No CHF symptoms. No atypical chest pain for CAD. No palpitations. Questionable orthopnea.. GASTROINTESTINAL: No abdominal pain. No nausea or vomiting. No diarrhea or constipation. No hematemesis. No hematochezia. GENITOURINARY: No urgency. No frequency. No dysuria. No hematuria. No obstructive symptoms. No discharge. No pain. No significant abnormal bleeding. MUSCULOSKELETAL: No musculoskeletal pain; no joint swelling. NEUROLOGICAL: Awake, alert, oriented to time, place and person. No headache. No neck pain. No syncope. No seizures. No dizziness. PSYCHIATRIC: Not anxious. No depression. No suicidal thoughts. No homicidal thoughts. SKIN: No rash. No lesions. No wounds. ENDOCRINE: No unexplained weight loss. No weight gain. Lost 10 pounds. HEMATOLOGIC/LYMPHATIC: No anemia. No purpura. No petechiae. No prolonged or excessive bleeding. No palpable lymph nodes. PHYSICAL EXAMINATION: GENERAL: The patient is awake, alert and oriented, lying in bed in no distress. VITAL SIGNS: Temperature 97.8 F, Pulse 67, Respiratory Rate 18, BP 142/65, Pulse Ox 94% HEENT: Head normocephalic, atraumatic. Eyes: Extraocular muscles are intact. Pupils are equal, round and reactive to light and accommodation. Ears: No lesions. Nose appeared normal. Throat: No exudate or erythema. NECK: Supple. No JVD, no carotid bruit. No lymphadenopathy or thyromegaly. LUNGS: Decreased breath sounds but clear to auscultation. Percussion note normal. Chest symmetrical. HEART: S1, S2, no S3. No murmurs. No cyanosis or clubbing. No ascites. Pulses: Dorsalis pedis and posterior tibial pulses +1 to +2 both sides. ABDOMEN: Soft. Non-tender. Bowel sounds active. No CVA tenderness. No mass felt. EXTREMITIES: Less leg edema than yesterday. Still has 2+ pitting of leg. Arms look thinner. Full range of motion of all extremities, equal. NEUROLOGIC: No focal deficit. Cranial nerves II through XII are grossly intact. No headache, no double vision or headache. SKIN: Warm and dry. Intact. Turgor-normal. LYMPHATIC: No palpable lymph nodes/no lymphedema. MUSCULOSKELETAL: Normal joints with no swelling. Muscle tone is normal. LAB REVIEW: 05/13/19 01:32 05/13/19 01:32 05/13/19 01:32: Sodium 139.0, Potassium 3.00 L, Chloride 98.1, Carbon Dioxide 39.1 H, Anion Gap 4.80, BUN 18.6, Creatinine 0.99, Estimated GFR (MDRD) 73.00, BUN/Creatinine Ratio 18.78, Glucose 90.3, Calcium 9.10, Total Bilirubin 0.40, AST 30.3, ALT 36.0, Alkaline Phosphatase 73.5, Total Protein 6.52, Albumin 3.68, Globulin 2.84, Albumin/Globulin Ratio 1.29 05/13/19 01:32: WBC 9.00, RBC 4.33 L, Hgb 12.2 L, Hct 38.1 L, MCV 88.0, MCH 28.2, MCHC 32.0, RDW Coeff of Toby 13.6, Plt Count 251, Immature Gran % (Auto) 0.3, Neut % (Auto) 62.4, Lymph % (Auto) 26.7, [place] % (Auto) 5.9, Eos % (Auto) 3.9, Baso % (Auto) 0.8, Immature Gran # (Auto) 0.0, Neut # (Auto) 5.6, Lymph # (Auto) 2.4, [place] # (Auto) 0.5, Eos # (Auto) 0.4, Baso # (Auto) 0.1 05/13/19 01:32: Total Creatine Kinase 63.5, Troponin I < 0.012 05/12/19 17:32: Puncture Site R radial, O2 Saturation 94.0 L, ABG pH 7.461 H, ABG pCO2 42.3, ABG pO2 68.0 L, ABG HCO3 30.2 H, ABG Total CO2 31 H, ABG Base Excess 6 H, Srinivasa Test +, FiO2 % 21.0 05/12/19 12:47: Free T4 1.40 05/12/19 12:47: Sodium 140.3, Potassium 3.30 L, Chloride 102.3, Carbon Dioxide 36.2 H, Anion Gap 5.10, BUN 19.8, Creatinine 0.83, Estimated GFR (MDRD) 89.00, BUN/Creatinine Ratio 23.85, Glucose 87.5, Calcium 8.77, Phosphorus 2.42 L, Total Bilirubin 0.47, Direct Bilirubin 0.00, AST 30.0, ALT 37.2, Alkaline Phosphatase 65.9, Total Creatine Kinase 60.2, Troponin I < 0.012, NT-Pro-B Natriuret Pep 265.000, Total Protein 6.31, Albumin 3.56, Globulin 2.75, Albumin/Globulin Ratio 1.29, TSH 2.790 05/12/19 12:47: WBC 7.85, RBC 4.16 L, Hgb 11.9 L, Hct 36.7 L, MCV 88.2, MCH 28.6, MCHC 32.4, RDW Coeff of Toby 13.8, Plt Count 225, Immature Gran % (Auto) 0.4, Neut % (Auto) 67.3, Lymph % (Auto) 23.1, [place] % (Auto) 5.4, Eos % (Auto) 3.3, Baso % (Auto) 0.5, Immature Gran # (Auto) 0.0, Neut # (Auto) 5.3, Lymph # (Auto) 1.8, [place] # (Auto) 0.4, Eos # (Auto) 0.3, Baso # (Auto) 0.0 ASSESSMENT: Please see below. 1. Weight gain 2. Shortness of breath 3. Leg edema 4. Fluid retention 5. CHF questionable 6. No ascites by ultrasound 7. Hepatic steatosis, No liver cirrhosis 8. Dyslipidemia 9. Diabetic neuropathy PLAN: 1. Educated the patient of weight loss 2. Cut down on salt 3. Elevate the legs 4. Aldactone is now. we will need to watch the patient's potassium. Potassium is low but may go home on K-tab 20meq. educa pt to lose weigh t Plan and coordination of the patient's care discussed in the presence of Cra and nurse. CONDITION: CARDIOVASCULAR STATUS IS STABLE SCRIBED BY: NARAYAN ROBERSON, Game Developer scribed while in presence of service performed by Dr. BUD MARTINES on 05/13/19 (1200)
[2019-05-13] MEDS: LASIX IVP SCH (15:07)
[2019-05-13] MEDS: K-DUR PO SCH (17:08)
[2019-05-13] MEDS: GLUCOPHAGE PO SCH (17:12)
[2019-05-13] MEDS: ALDACTONE PO SCH (20:35)
[2019-05-14] MEDS: LASIX IVP SCH (05:40)
--- NOTE | 2019-05-14 08:50 | PCM.PROG ---
Attending Provider: ATTENDING PROVIDER: Dr. BUD MARTINES This patient is seen with Meri Kent, Nurse Practitioner. DATE OF SERVICE: 05/14/19 SUBJECTIVE: This 83 year old /WHITE M was hospitalized 05/12/19. The patient is resting comfortably. He is feeling much better. Still with some leg edema. O2 is 87% this morning. REVIEW OF SYSTEMS: CONSTITUTIONAL: No night sweats. No fatigue, malaise, lethargy. No fever or chills. Weakness. HEENT: Eyes: No visual changes. No eye pain. No eye discharge. ENT: No runny nose. No epistaxis. No sinus pain. No odynophagia. No congestion. RESPIRATORY: No cough, no congestion. No hemoptysis. Shortness of breath. CARDIOVASCULAR: No angina symptoms. No CHF symptoms. No atypical chest pain for CAD. No palpitations. No orthopnea.. GASTROINTESTINAL: No abdominal pain. No nausea or vomiting. No diarrhea or constipation. No hematemesis. No hematochezia. GENITOURINARY: No urgency. No frequency. No dysuria. No hematuria. No obst ructive symptoms. No discharge. No pain. No significant abnormal bleeding. MUSCULOSKELETAL: No musculoskeletal pain; no joint swelling. NEUROLOGICAL: Awake, alert, oriented to time, place and person. No headache. No neck pain. No syncope. No seizures. No dizziness. PSYCHIATRIC: Not anxious. No depression. No suicidal thoughts. No homicidal thoughts. SKIN: No rash. No lesions. No wounds. Leg edema. ENDOCRINE: No unexplained weight loss. No weight gain. HEMATOLOGIC/LYMPHATIC: No anemia. No purpura. No petechiae. No prolonged or excessive bleeding. No palpable lymph nodes. PHYSICAL EXAMINATION: GENERAL: The patient is awake, alert and oriented, sitting in bed in no distress. VITAL SIGNS: Temperature 97.9 F, Pulse 76, Respiratory Rate 18, BP 150/68, Pulse Ox 95% HEENT: Head normocephalic, atraumatic. Eyes: Extraocular muscles are intact. Pupils are equal, round and reactive to light and accommodation. Ears: No lesions. Nose appeared normal. Throat: No exudate or erythema. NECK: Supple. No JVD, no carotid bruit. No lymphadenopathy or thyromegaly. LUNGS: Diminished breath sounds. Clear to auscultation. Percussion note normal. Chest symmetrical. HEART: S1, S2, no S3. No murmurs. No cyanosis or clubbing. No ascites. Pulses: Dorsalis pedis and posterior tibial pulses +1 to +2 both sides. ABDOMEN: Soft. Non-tender. Bowel sounds active. No CVA tenderness. No mass felt. EXTREMITIES: +1 bilateral lower extremity edema. Full range of motion of all extremities, equal. NEUROLOGIC: No focal deficit. Cranial nerves II through XII are grossly intact. No headache, no double vision or headache. SKIN: Not dry. Intact. Turgor-normal. LYMPHATIC: No palpable lymph nodes/no lymphedema. MUSCULOSKELETAL: Normal joints with no swelling. Muscle tone is normal. LAB REVIEW: 05/14/19 04:56 05/14/19 04:56 05/14/19 04:56: Sodium 141.1, Potassium 2.88 L, Chloride 95.0 L, Carbon Dioxide 39.4 H, Anion Gap 9.58, BUN 14.9, Creatinine 0.99, Estimated GFR (MDRD) 73.00, BUN/Creatinine Ratio 15.05, Glucose 107.7 H, Calcium 9.44, Total Bilirubin 0.57, AST 38.1, ALT 42.6, Alkaline Phosphatase 75.3, Total Protein 7.04, Albumin 4.00, Globulin 3.04, Albumin/Globulin Ratio 1.31 05/14/19 04:56: WBC 7.38, RBC 4.88, Hgb 13.7 L, Hct 43.4, MCV 88.9, MCH 28.1, MCHC 31.6 L, RDW Coeff of Toby 13.6, Plt Count 259, Immature Gran % (Auto) 0.3, Neut % (Auto) 63.2, Lymph % (Auto) 26.2, [place] % (Auto) 6.1, Eos % (Auto) 3.7, Baso % (Auto) 0.5, Immature Gran # (Auto) 0.0, Neut # (Auto) 4.7, Lymph # (Auto) 1.9, [place] # (Auto) 0.5, Eos # (Auto) 0.3, Baso # (Auto) 0.0 05/13/19 16:30: Urine Color Yellow, Urine Clarity Clear, Urine pH 7.0, Ur Specific [place] 1.015, Urine Protein Negative, Urine Glucose (UA) Negative, Urine Ketones Negative, Urine Blood Negative, Urine Nitrite Negative, Urine Bilirubin Negative, Urine Urobilinogen 0.2, Ur Leukocyte Esterase Negative ASSESSMENT: Please see below. 1. Shortness of breath, improved 2. Leg edema, improving 3. Obesity 4. Hypertension 5. Diabetes Mellitus type 2 6. Hypokalemia PLAN: 1. Potassium 40meq TID 3. Will check last echo 3. Likely he has sleep apnea and needs O2 throughout the night which would account for lower saturation this morning. Plan and coordination of the patient's care discussed in the presence of Other Sales Support Worker and nurse. SCRIBED BY: Kit ABBOTTist scribed while in presence of service performed by Dr. Martines/Meri Kent APRN on 05/14/19 ([id number])
[2019-05-14] MEDS: ALDACTONE PO SCH ×2 (09:21→20:48)
[2019-05-14] MEDS: ASPIRIN EC PO SCH (09:21)
[2019-05-14] MEDS: FLOMAX PO SCH (09:22)
[2019-05-14] MEDS: COZAAR PO SCH (09:22)
[2019-05-14] MEDS: NEURONTIN PO SCH ×3 (09:23→20:48)
[2019-05-14] MEDS: JANUVIA PO SCH (09:23)
[2019-05-14] MEDS: GLUCOPHAGE PO SCH ×2 (09:23→17:14)
[2019-05-14] MEDS: PROSCAR PO SCH (09:24)
[2019-05-14] MEDS: K-DUR PO SCH ×4 (09:26→17:14)
[2019-05-14] MEDS: LEVEMIR SUBCUT SCH ×2 (09:27→20:48)
[2019-05-15] MEDS ORDERED: LASIX TAB PO SCH (06:30)
--- NOTE | 2019-05-15 08:15 | PN ---
DATE OF SERVICE: 05/14/19 SUBJECTIVE: The patient was seen and examined with the nurse practitioner. The patient has lost further weight, The edema is much less than on admission. The patient will have an echo tomorrow to evaluate LV function. The patient is going to be on diuretic and Aldactone, Lasix and Aldactone combination. TIME SPENT: More than 30 minutes. Plan and coordination of the patient's care discussed in the presence of nurse. SIM
[2019-05-15] MEDS: JANUVIA PO SCH (09:30)
[2019-05-15] MEDS: NEURONTIN PO SCH ×2 (09:30→15:23)
[2019-05-15] MEDS: PROSCAR PO SCH (09:30)
[2019-05-15] MEDS: GLUCOPHAGE PO SCH ×2 (09:31→17:07)
[2019-05-15] MEDS: COZAAR PO SCH (09:31)
[2019-05-15] MEDS: ASPIRIN EC PO SCH (09:31)
[2019-05-15] MEDS: ALDACTONE PO SCH (09:32)
[2019-05-15] MEDS: K-DUR PO SCH ×3 (09:32→17:07)
[2019-05-15] MEDS: FLOMAX PO SCH (09:32)
[2019-05-15] MEDS: LEVEMIR SUBCUT SCH (09:41)
[2019-05-15 14:23] VITALS: BP 111/70; TEMP 98.3
--- NOTE | 2019-05-15 14:38 | CM.DICTOOL ---
ADMISSION: 05/12/19 14:17 DISCHARGE: MAY 15, 2019 DATE OF SERVICE: 05/15/19 FINAL DIAGNOSIS WEIGHT GAIN SOA/FATIGUE LEG EDEMA ASCITES CHF NON-COMPLIANCE WITH MEDICATIONS, LIFESTYLE DM, TYPE 2 CAD HYPERTENSION COPD GERD BPH CKD STAGE 3 RENAL CYST - DR. MARTIN HX. NEPHROLIATHIASIS HEPATIC STEATOSIS OSTEOARTHRITIS DEGENERATIVE DISK DISEASE METABOLIC SYNDROME OBESITY, BMI 40.9 ELEVATED PSA - PROSTATE CA PER BIOPSY APPENDECTOMY CHOLECYSTECTOMY PROSTATE BIOPSY - PROSTATE CA ECHO 08/20/2017 LVH WITH ENLARGED LAC NORMAL LVC NORMAL VALVES LVEF 68% LAST VITALS Temp Pulse Resp BP Pulse Ox 97.9 F 71 17 133/60 92 L 05/15/19 05:24 05/15/19 05:24 05/15/19 05:24 05/15/19 05:24 05/15/19 05:24 TAKE THESE MEDICATIONS AT HOME Aspirin (Aspirin Ec) 81 mg PO DAILYWM [facility] Last Admin: 05/15/19 09:31 Dose: 81 mg Documented by: Finasteride (Proscar) 5 mg PO DAILY [facility] Last Admin: 05/15/19 09:30 Dose: 5 mg Documented by: Furosemide (Lasix Tab) 40 mg PO QDAC [facility] Last Admin: 05/15/19 05:41 Dose: 40 mg Documented by: Gabapentin (Neurontin) 600 mg PO TID [facility] Last Admin: 05/15/19 09:30 Dose: 600 mg Documented by: Insulin Detemir (Levemir) 52 unit SUBCUT BID [facility] Last Admin: 05/15/19 09:41 Dose: 52 unit Documented by: Losartan Potassium (Cozaar) 50 mg PO DAILY [facility] Last Admin: 05/15/19 09:31 Dose: 50 mg Documented by: Metformin HCl (Glucophage) 2,000 mg PO DAILYWM [facility] Last Admin: 05/15/19 09:31 Dose: 2,000 mg Documented by: Metformin HCl (Glucophage) 1,000 mg PO QPM [facility] Last Admin: 05/14/19 17:14 Dose: 1,000 mg Documented by: Potassium Chloride (K-Dur) 20 meq PO DAILY [facility] Last Admin: 05/15/19 12:45 Dose: 40 meq Documented by: Sitagliptin Phosphate (Januvia) 100 mg PO DAILY [facility] Last Admin: 05/15/19 09:30 Dose: 100 mg Documented by: : Spironolactone (Aldactone) 25 mg PO BID [facility] Last Admin: 05/15/19 09:32 Dose: 25 mg Documented by: Tamsulosin HCl (Flomax) 0.4 mg PO DAILY [facility] Last Admin: 05/15/19 09:32 Dose: 0.4 mg Documented by: ALLERGIES Iodinated Contrast Media [Iodinated Contrast Media - IV Dye] Adverse Reaction (Severe, Verified 09/21/15 15:13) Anaphylaxis iodine Adverse Reaction (Severe, Verified 09/21/15 15:13) Anaphylaxis DISCONTINUED MEDICATIONS LISINOPRIL 20 MG DAILY POTASSIUM CHLORIDE 10 MEQ DAILY LASIX 20 MG DAILY NEW PRESCRIPTIONS: NEW PRESCRIPTIONS LASIX 40 MG DAILY COZAAR 50 MG DAILY K-DUR 20 MEQ DAILY ALDACTONE 25 MG BID SMOKING: NOT APPLICABLE DISEASE SPECIFIC EDUCATION: USE OF CONTINUOUS OXYGEN NEW MEDICATIONS ELEVATE LEGS ABOVE THE LEVEL OF THE HIPS WEIGH SELF DAILY LAB REVIEW: 05/15/19 04:28 05/15/19 04:28 05/15/19 04:28: Sodium 140.6, Potassium 3.25 L, Chloride 98.6, Carbon Dioxide 38.1 H, Anion Gap 7.15, BUN 17.4, Creatinine 0.98, Estimated GFR (MDRD) 73.00, BUN/Creatinine Ratio 17.75, Glucose 106.5 H, Calcium 8.98, Total Bilirubin 0.31, AST 27.2, ALT 34.0, Alkaline Phosphatase 65.6, Total Protein 6.21 L, Albumin 3.49 L, Globulin 2.72, Albumin/Globulin Ratio 1.28 05/15/19 04:28: WBC 7.29, RBC 4.42 L, Hgb 12.6 L, Hct 39.5 L, MCV 89.4, MCH 28.5, MCHC 31.9, RDW Coeff of Toby 13.5, Plt Count 230, Immature Gran % (Auto) 0.4, Neut % (Auto) 58.4, Lymph % (Auto) 30.0, [place] % (Auto) 7.0, Eos % (Auto) 3.7, Baso % (Auto) 0.5, Immature Gran # (Auto) 0.0, Neut # (Auto) 4.3, Lymph # (Auto) 2.2, [place] # (Auto) 0.5, Eos # (Auto) 0.3, Baso # (Auto) 0.0 PLAN: DISCHARGE HOME DIET: DIABETIC/CONSISTENT CARBOHYDRATES ACTIVITY: RESUME TOLERATED. PLEASE USE OXYGEN AT 2 LITERS PER NASAL CANNULA DURING THE DAY AND AT NIGHT ([facility]) ELEVATE THE LEGS ABOVE THE LEVEL OF THE HIPS WHEN SITTING AND AT NIGHT WEIGH SELF DAILY; REPORT WEIGHT GAIN OF OVER 2# IN ONE DAY OR 5# IN ONE WEEK CONTINUE TO CHECK BLOOD SUGARS PER YOUR ROUTINE AT HOME AN APPOINTMENT IS SCHEDULED WITH DR. MARTINES/SHANNON CONTI APRN ON May AT 1:30 MR. PARRY IS ALERT AND ORIENTED X 3. MR. PARRY LIVES AT HOME WITH HIS . HE IS AGREEABLE TO PLANS FOR DISCHARGE HOME. HE IS INDEPENDENT WITH ACTIVITIES OF DAILY LIVING. HE IS AMBULATORY WITH STAND BY ASSISTANCE IN THE HALLWAY. HE HAS A WALKER AT HOME THAT HE USES AT TIMES. HE IS ABLE TO TRANSFER FROM THE BED TO THE CHAIR PER SELF. HE UTILIZES OXYGEN AT 2 LITERS AT NIGHT AND HAS QUALIFIED FOR OXYGEN CONTINUOUSLY. PORTABLE OXYGEN HAS BEEN REQUESTED FROM [facility]. MR. PARRY IS AGREEABLE TO THE USE OF CONTINUOUS OXYGEN. MR. PARRY IS CONTINENT OF BOWEL AND BLADDER. HE FEEDS HIMSELF AND HAS A GOOD APPETITE OF 100%. LOWER EXTREMITIES CONTINUE TO HAVE PITTING EDEMA, THAT INCREASES WITH SITTING. SKIN IS INTACT AND FREE OF SKIN BREAKDOWN. MD SHANNON SMITH APRN
--- NOTE | 2019-05-18 08:05 | DS ---
DATE OF SERVICE: 05/15/19 FINAL DIAGNOSIS: 1. WEIGHT GAIN 2. SOA/FATIGUE 3. LEG EDEMA 4. ASCITES 5. CHF 6. NON-COMPLIANCE WITH MEDICATIONS, LIFESTYLE 7. DM, TYPE 2 8. CAD 9. HYPERTENSION 10.COPD 11.GERD 12.BPH 13.CKD STAGE 3 14.RENAL CYST - DR. MARTIN 15.HX. NEPHROLIATHIASIS 16.HEPATIC STEATOSIS 17.OSTEOARTHRITIS 18.DEGENERATIVE DISK DISEASE 19.METABOLIC SYNDROME 20.OBESITY, BMI 40.9 21.ELEVATED PSA - PROSTATE CA PER BIOPSY 22.APPENDECTOMY 23.CHOLECYSTECTOMY 24.PROSTATE BIOPSY - PROSTATE CA 25.ECHO 08/20/2017; LVH WITH ENLARGED LAC, NORMAL LVC, NORMAL VALVES and LVEF 68% LAST VITALS: Temp Pulse Resp BP Pulse Ox 97.9 F 71 17 133/60 92 L 05/15/19 05:24 05/15/19 05:24 05/15/19 05:24 05/15/19 05:24 05/15/19 05:24 DISCHARGE INSTRUCTIONS: DISCHARGE HOME. WEIGH SELF DAILY; REPORT WEIGHT GAIN OF OVER 2# IN ONE DAY OR 5# IN ONE WEEK. CONTINUE TO CHECK BLOOD SUGARS PER YOUR ROUTINE AT HOME. AN APPOINTMENT IS SCHEDULED WITH DR. MARTINES/SHANNON CONTI APRN ON May AT 1:30. TAKE THESE MEDICATIONS AT HOME: Aspirin (Aspirin Ec) 81 mg PO DAILYWM [facility] Finasteride (Proscar) 5 mg PO DAILY [facility] Furosemide (Lasix Tab) 40 mg PO QDAC [facility] Gabapentin (Neurontin) 600 mg PO TID [facility] Insulin Detemir (Levemir) 52 unit SUBCUT BID [facility] Losartan Potassium (Cozaar) 50 mg PO DAILY [facility] Metformin HCl (Glucophage) 2,000 mg PO DAILYWM [facility] Metformin HCl (Glucophage) 1,000 mg PO QPM [facility] Potassium Chloride (K-Dur) 20 meq PO DAILY [facility] Sitagliptin Phosphate (Januvia) 100 mg PO DAILY [facility] Spironolactone (Aldactone) 25 mg PO BID [facility] Tamsulosin HCl (Flomax) 0.4 mg PO DAILY [facility] ALLERGIES: Iodinated Contrast Media [Iodinated Contrast Media - IV Dye] Adverse Reaction (Severe, Verified 09/21/15 15:13) Iodine Adverse Reaction (Severe, Verified 09/21/15 15:13) DISCONTINUED MEDICATIONS: LISINOPRIL 20 MG DAILY POTASSIUM CHLORIDE 10 MEQ DAILY LASIX 20 MG DAILY NEW PRESCRIPTIONS: LASIX 40 MG DAILY COZAAR 50 MG DAILY K-DUR 20 MEQ DAILY ALDACTONE 25 MG BID SMOKING: NOT APPLICABLE DISEASE SPECIFIC EDUCATION: USE OF CONTINUOUS OXYGEN NEW MEDICATIONS ELEVATE LEGS ABOVE THE LEVEL OF THE HIPS WEIGH SELF DAILY DIET: DIABETIC/CONSISTENT CARBOHYDRATES ACTIVITY: RESUME TOLERATED. PLEASE USE OXYGEN AT 2 LITERS PER NASAL CANNULA DURING THE DAY AND AT NIGHT ([place]) ELEVATE THE LEGS ABOVE THE LEVEL OF THE HIPS WHEN SITTING AND AT NIGHT HOSPITAL COURSE: MR. Smyth was hospitalized with generalized swelling, leg edema, weight gain, shortness of breath and some symptoms of CHF. The patient's BNP was close to 250 not that much elevated and in any case the patient was treated with IV Lasix and Aldactone. The patient lost nearly 10-20 pounds of weight in the fluid loss. He was feeling lot better. He was up and about. The patient has a lot of stress lately. A couple of family members have in past 10 days. He has been trying help out family members. The patient is obese, noncompliant of lifestyle, medications. He was strongly advised to cut down on salt intake. Advised to elevate his legs. The patient's potassium will be followed as an outpatient. I put on Potassium supplements 20meq daily along with Aldactone and Lasix combination with Cozaar. His kidney functions are practically normal. His echo showed LVH with normal LV contractility and borderline LA cavity enlargement. He will undergo stress echo as an outpatient, declined this time. He was explained about coronary artery disease and risk factors and how to modify them. The patient becomes short of breath with ambulation. O2 saturation drops 81-86% indicating he needs oxygen with activity during the day. The patient is agreeable and it will be arranged at discharge. The patient requires portable oxygen beyond the confines of home because the patient is not home bound and drives his car and is out in the community. CONDITION: Stable. TIME SPENT: More than 60 minutes. [facility]
--- NOTE | 2019-05-18 11:33 | ECHO2D ---
Date of Exam: 05/15/19 Ordering Physician: DR. BUD MARTINES Room #: 118 Reason for Echo: SOB, EDEMA, DM2, CARDIOMEGALY M-Mode Normal Adult Results LV Dimensions Normal Adult Results AoV Opening excursions >1.6 >1.6 LVEDD-base- 3.5-5.8 5.3 Ao root dimensions 2.0-3.7 3.6 LVESD-base- 3.1-4.6 L. Atrium dimensions 1.9-3.8 4.0 Post. Wall thickness 0.8-1.1 1.2 IV septum (thickness) 0.7-1.2 1.2 Post. Wall excursion 0.72-1.3 NORMAL Septal motion NORMAL Systolic motion R. Ventricular cavity 1.5-2.0 NORMAL LVEF 60% 59% Paradoxical septal wall motion NORMAL 2-D : 2-D M Mode Echocardiogram was performed using apical four chamber and left parasternal long and short axis views. Mitral, tricuspid and aortic valves appear to be normal. Contractility of the left ventricle seems to be normal, so is the cavity size. BORDERLINE LEFT ATRIAL CAVITY ENLARGEMENT. Aortic root appears to be normal. There is no pericardial effusion. There is no thrombus noted in the left ventricle or left atrial cavity. No mitral valve prolapse noted. M-MODE: MV: NORMAL AV: NORMAL TV: NORMAL PV: CHAMBER SIZE: NORMAL WALL MOTION: NORMAL PERICARDIUM: NORMAL INTERPRETATION: 1. BORDERLINE LEFT VENTRICULAR HYPERTROPHY WITH BORDERLINE LEFT ATRIAL CAVITY ENLARGEMENT 2. NORMAL LEFT VENTRICULAR CONTRACTILITY 3. NORMAL VALVES MTDD
--- NOTE | 2019-05-21 14:35 | PN ---
DATE OF SERVICE: 05/15/19 DISCHARGE NOTE SUBJECTIVE: 83 year old white male admitted with tremendous weight gain. The patient says that he has been under a lot of stress with deaths in the family, two of them in the past 10 days. The patient besides that is noncompliant of his lifestyle. His BMI is extremely high almost like a morbid obesity. He doesn't follow his diet, he doesn't take the medications on a regular basis. In any case the patient was diuresis with IV Lasix and Aldactone was added. At that time of discharge he was put on K-Dur 20meq daily long with Aldactone 25mg twice a day with Lasix as before. He is to be seen in 7 to 10 days where his labs will be checked. REVIEW OF SYSTEMS: CONSTITUTIONAL: No night sweats. No fatigue, malaise, lethargy. No fever or chills. HEENT: Eyes: No visual changes. No eye pain. No eye discharge. ENT: No runny nose. No epistaxis. No sinus pain. No sore throat. No odynophagia. No congestion. RESPIRATORY: No cough, no congestion. No hemoptysis. No shortness of breath. CARDIOVASCULAR: No angina symptoms. No CHF symptoms. No atypical chest pain for CAD. No palpitations. No PND. No orthopnea. GASTROINTESTINAL: No abdominal pain. No nausea or vomiting. No diarrhea or constipation. No hematemesis. No hematochezia. GENITOURINARY: No urgency. No frequency. No dysuria. No hematuria. No obstructive symptoms. No discharge. No pain. No significant abnormal bleeding. MUSCULOSKELETAL: No musculoskeletal pain; no joint swelling. NEUROLOGICAL: No headache. No neck pain. No syncope. No seizures. No dizziness. PSYCHIATRIC: Not anxious. No depression. No suicidal thoughts. No homicidal thoughts. SKIN: No rash. No lesions. No wounds. ENDOCRINE: No unexplained weight loss. No weight gain. HEMATOLOGIC/LYMPHATIC: No anemia. No purpura. No petechiae. No prolonged or excessive bleeding. No palpable lymph nodes. PHYSICAL EXAMINATION: HEENT: Head normocephalic, atraumatic. Eyes: Extraocular muscles are intact. Pupils are equal, round and reactive to light and accommodation. Ears: No lesions. Nose appeared normal. Throat: No exudate or erythema. NECK: Supple. No JVD, no carotid bruit. No lymphadenopathy or thyromegaly. LUNGS: Decreased breath sounds. Clear to auscultation. Percussion note normal. Chest symmetrical. HEART: S1, S2, no S3. No murmurs. No cyanosis or clubbing. No ascites. Pulses: Dorsalis pedis and posterior tibial pulses +1 to +2 bilaterally. ABDOMEN: Soft. Nontender. Bowel sounds active. No CVA tenderness. No mass felt. EXTREMITIES: +1 to +2 edema. Calf muscles are somewhat lose, not tight like what they were on admission. Full range of motion of all extremities, equal. NEUROLOGIC: No focal deficit. Cranial nerves II through XII are grossly intact. No headache, no double vision or headache. SKIN: Not dry. Intact. Turgor - normal. LYMPHATIC: No palpable lymph nodes/no lymphedema. MUSCULOSKELETAL: Normal joints with no swelling. Muscle tone is normal. LABS: Hgb 12.6, hct 39, WBC 7,000 normal differential, plt count normal, creatinine 0.9, BUN 17, potassium 3.25. BNP on admission was 265. TIME SPENT: More than 30 minutes. Plan and coordination of the patient's care discussed in the presence of nurse. SIM
--- NOTE | 2019-05-21 14:37 | PN ---
05/12/19: Level 5 05/13/19: Intermediate 05/14/19: Intermediate 05/15/19: D as in discharge MTDD
--- NOTE | 2019-06-10 11:15 | HP ---
DATE OF SERVICE: 05/12/19 REASON FOR HOSPITALIZATION/HISTORY OF PRESENT ILLNESS: 83 year old white male hospitalized with weight gain, leg swelling and shortness of breath for 7 days. He has orthopnea and using 3 pillows. Brother/[id number] in past 10 days. no symptoms of CAD. PAST MEDICAL HISTORY: Hypertension Obesity Diabetes Mellitus type 2 Chronic kidney disease stage 3 LVH Neuropathy DJD spine Elevated PSA History of Nephrolithiasis Chronic bronchitis Hepatic steatosis COPD History of falls PAST SURGICAL HISTORY: Colonoscopy 2007 Appendix Eye right and left Gallbladder REVIEW OF SYSTEMS: CONSTITUTIONAL: No fever, Fatigue. HEENT: No sinus drainage, no sore throat. RESPIRATORY: No cough, no congestion. CARDIOVASCULAR: No atypical chest pain for coronary artery disease. No angina, CHF symptoms, palpitations. Shortness of breath. GASTROINTESTINAL: No melena or abdominal pain. No GERD. GENITOURINARY: No hematuria, no prostatism, no polyuria. SHAFT TENDER: No blackout, no dizziness, no headache, no double vision. MUSCULOSKELETAL: Osteoarthritis pain, no joint swelling. ENDOCRINE: No weight loss, Weight gain. SKIN: Not dry, no rash. PSYCHIATRIC: Anxious, no depression, no suicidal thoughts, no homicidal thoughts. SOCIAL HISTORY: Marital Status: . Alcohol Usage: No. Tobacco Usage: No. FAMILY HISTORY: Father Mother Brother 4 Sister 7 MEDICATIONS: Januvia 100mg PO daily Glucophage 1000mg PO bedtime Aspirin 81mg PO daily Gabapentin 600mg PO three times a day Tamsulosin 0.4mg PO daily Levemir 52 unit SUBCUT BID Metformin 2000mg PO daily Finasteride 5mg PO daily ALLERGIES: Iodine x-ray dye PHYSICAL EXAMINATION: V/S: PUlse 76, blood pressure 140/60, oxygen saturation 93%. Height 5'7, BMI 42.7, weight 273. GENERAL APPEARANCE: Oriented times three. HEENT: Normal. NECK: JVP 2cm, no bruits. RESPIRATORY: Decreased breath sounds. CARDIOVASCULAR: S1, S2, no S3, no murmur. No cyanosis, clubbing. No ascites. GI/ABDOMEN: No tenderness. Bowel sounds are active. EXTREMITIES: +2 pitting edema, pulses +1, equal. SHAFT TENDER: Deep tendon reflexes, sensory, motor and gait all normal. RECTAL: 2006 the patient refused repeat./PROSTATE: 07-28 Dr. Ivey appointment 04/30 . ASSESSMENT: 1. Weight gain 2. Shortness of breath 3. Leg edema 4. Ascites 5. CHF 6. Chest pain- atypical, sharp unrelated to exertion 7. Status post fall 8. Left knee pain 9. 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 Ivey follows 21.Shortness of breath 22.Fatigue 23.Neuropathy diabetic 24.History of nephrolithiasis 25.Right side flank pain 26.Hepatic steatosis 27.Morbid obesity PLAN: 1. Admit 2. Routine telemetry orders 3. Elevate legs 4. IV Lasix 40mg Now and QAM 5. Aldactone 25mg PO daily 6. Daily weights 7. Continue all home medications 8. Discontinue Lisinopril, Lasix and Potassium 9. Cozaar 50mg PO daily 10.Ultrasound of liver; diagnosis hepatic steatosis/ascites 11.ABG 12.BNP, TSH and T4 13.Daily CBC and CMP 14.Zaroxolyn 2.5mg times one dose TIME SPENT: More than 70 minutes. MTDD
== END 2019-05-15 19:30 | disposition home or self-care (01) | DRG 292 ==
LOC: MEDSURG B 14:17
PROVIDERS: ADMIT Internal Medicine; ATTEND Internal Medicine
DX: R53.83 Other fatigue; E87.6 Hypokalemia; M19.90 Unspecified osteoarthritis, unspecified site; E66.9 Obesity, unspecified; J44.9 Chronic obstructive pulmonary disease, unspecified; N18.3 Chronic kidney disease, stage 3 (moderate); E88.89 Other specified metabolic disorders; Z68.41 Body mass index [BMI] 40.0-44.9, adult; E88.81 Metabolic syndrome and other insulin resistance; E11.9 Type 2 diabetes mellitus without complications; I10 Essential (primary) hypertension; I25.10 Atherosclerotic heart disease of native coronary artery without angina pectoris; E78.5 Hyperlipidemia, unspecified; I50.9 Heart failure, unspecified; E08.40 Diabetes mellitus due to underlying condition with diabetic neuropathy, unspecified; K21.9 Gastro-esophageal reflux disease without esophagitis; R60.0 Localized edema

== ENCOUNTER 2023-01-25 10:35 | Inpatient (IN) ==
--- NOTE | 2023-01-25 11:12 | ED.PDOC ---
General ED Provider: Dr. CARL ARGUETA MD Chief Complaint: Shortness of Air Stated Complaint: Short of breath and lower extremity swelling. Started 5 weeks ago. Was seen in the clinic today by his primary provider and sent to the ER for further evaluation. Patient reports that he has been very weak and has been falling. Reports a cough that is dry. No fevers. Reports approximately 15 pound weight gain. Denies any chest pain. States that his has to perform catheterization for him to evacuate his bladder. States just before he gets the urge to urinate he does experience pain in his lower abdominal region. Denies any blood in his urine. Time Seen by Provider: 01/25/23 10:36 Mode of Arrival: Wheelchair Information Source: Patient and Family Primary Care Provider: BUD MARTINES MD Referred to ED by: PCP Seen Within Last 72 Hours for Same Complaint By: PCP Nursing and Triage Documentation Reviewed and Agree: Yes Does patient meet sepsis criteria?: No System Inflammatory Response Syndrome: Not Applicable Sepsis Protocol: For patient's 13 years and over: Temp is 96.8 and below OR 101 and greater Pulse >90 BPM Resp >20/minute Acutely Altered Mental Status Are patient's symptoms suggestive of a new infection, such as: -Pneumonia -Skin, Soft Tissue -Endocarditis -UTI -Bone, Joint Infection -Implantable Device -Acute Abdominal Infection -Wound Infection -Meningitis -Blood Stream Catheter Infection -Unknown Respiratory Complaint Exam Shortness of Air Complaint/Exam Onset/Duration: 5 weeks ago after he broke his arm. Has been worsening Symptoms Are: Still present Timing: Constant Initial Severity: Mild Current Severity: Moderate Character: Reports Dyspnea at rest, Dyspnea on exertion and Orthopnea Aggravating: Reports Movement Alleviating: Reports None Associated Signs and Symptoms: Reports Cough and Edema; Denies Chest pain with cough, Chest pain, Fever or Chills History of Healthcare-Acquired Pneumonia: No Pulmonary Embolism Risk Factors: Reports None Home Oxygen Use: No Review of Systems Review Of Systems Constitutional: Reports Weakness Respiratory: Reports Cough, Orthopnea and Shortness of Breath Cardiac: Denies Chest pain : Reports Dysuria All Other Systems: Reviewed and Negative [facility] Medical History Bronchitis J40 - BRONCHITIS, NOT SPECIFIED ACUTE OR CHRONIC (ICD-10) H/O: asbestos exposure Z77.090 - Contact with and (suspected) exposure to asbestos (ICD-10) Pneumonia due to 2019 novel coronavirus U07.1 - COVID-19 (ICD-10) J12.82 - Pneumonia due to coronavirus disease 2019 (ICD-10) Pneumonitis J18.9 - PNEUMONIA, UNSPECIFIED ORGANISM (ICD-10) Family History Mother No problems noted. FATHER No problems noted. Social History Smoking and tobacco status: Former smoker Quit date: 08/12/79 Alcohol intake: never Counseling given: No Substance use type: does not use Special alfred needs: No Agree to transfusion: Yes Adopted: No Caregiver/support person: No Foster care: No Household members: spouse Housing: house Marital status: M Lives independently: Yes Number of children: 6 Financial difficulty paying for basics: not very hard service: No detention: No Current occupational status: retired Pets and animals: No History of recent travel: No Sexually active: No Do you think of yourself as: straight/heterosexual Current gender identity: male Seatbelt use: always Drives intoxicated or rides with intoxicated class a truck driver: No Water heater temperature set < 120 degrees: Yes Working smoke detector in home: Yes Fire extinguisher in home: No Carbon monoxide detector in home: Yes Firearms in home: No Surgical History S/P appendectomy Z90.49 - Acquired absence of other specified parts of digestive tract (ICD- 10) S/P cholecystectomy Z90.49 - Acquired absence of other specified parts of digestive tract (ICD- 10) Physical Exam Physical Exam Appearance: Reports Obese Ill-appearing: Mild Pain Distress: None Eyes: Reports MARK and EOMI ENT: Reports Oropharynx normal Neck: Supple Respiratory: Reports Airway patent and Wheezes (Bilateral bases on end expiration) Cardiovascular: Reports RRR GI/: Reports Soft Musculoskeletal: Reports Other (Bilateral lower extremity edema, pitting, weeping) Skin: Reports Warm and Dry Neurological: Reports Alert and Oriented Psychiatric: Reports Affect appropriate Interpretation EKG Interpretation EKG Interpretation By: ED Physician Time of EKG #1: 11:02 Rate: Normal Rhythm: Sinus Ectopy: PACs [place]: NL ST Segment: Normal Interpretation: EKG ordered and interpreted by me. Rate 67 Critical Care Note Critical Care Note Total Critical Care Time (mins): 32 Comments: 32 minutes critical care time was spent in [id number] evaluation of the patient. Time also included ordering and interpreting laboratory and radiographic data. Patient with mild hypoxia, difficulty breathing, congestive heart failure findings. Will require hospitalization and diuresis. Secondary to new onset acute kidney injury will require careful monitoring of his electrolytes and kidney function while diuresing him. Diuresis was initiated in the emergency department with 60 of furosemide IV. Course Course 01/25/23 11:05 01/25/23 11:05 Orders, Labs, Meds: Lab Review 01/25/23 01/25/23 01/25/23 10:57 11:05 11:50 WBC 8.24 RBC 3.33 L Hgb 8.6 L Hct 28.7 L MCV 86.2 MCH 25.8 L MCHC 30.0 L RDW Coeff of Toby 17.1 H Plt Count 305 Immature Gran % (Auto) 0.2 Neut % (Auto) 64.7 Lymph % (Auto) 23.9 [place] % (Auto) 3.6 Eos % (Auto) 7.0 Baso % (Auto) 0.6 Neut # (Auto) 5.3 Lymph # (Auto) 2.0 [place] # (Auto) 0.3 L Eos # (Auto) 0.6 Baso # (Auto) 0.1 Immature Gran # (Auto) 0.0 Puncture Site Lbrach Base Excess -5.8 L O2 Saturation 92.0 L ABG pH 7.34 L ABG pCO2 37.0 ABG pO2 68.0 L ABG HCO3 20.0 L ABG Total CO2 21.1 Srinivasa Test Pos Hemoglobin 0.6 Oxyhemoglobin 94.2 L Carboxyhemoglobin 2.0 H Total Hemoglobin 8.3 L Sodium 144.0 Potassium 4.23 Chloride 114.2 H Carbon Dioxide 24.0 Anion Gap 10.03 BUN 38.4 H Creatinine 2.77 H Estimated GFR (MDRD) 22.00 BUN/Creatinine Ratio 13.86 Glucose 126.1 H Lactic Acid 0.94 Calcium 8.27 L Total Bilirubin 0.34 AST 26.1 ALT 21.5 Alkaline Phosphatase 153.8 H Troponin I < 0.012 NT-Pro-B Natriuret Pep 1170 H Total Protein 6.92 Albumin 3.92 Globulin 3.00 Albumin/Globulin Ratio 1.30 Procalcitonin 0.06 H Urine Color Yellow Urine Clarity Clear Urine pH 5.5 Ur Specific [place] 1.015 Urine Protein 1+ H Urine Glucose (UA) Negative Urine Ketones Negative Urine Blood Trace-intact H Urine Nitrite Negative Urine Bilirubin Negative Urine Urobilinogen 0.2 Ur Leukocyte Esterase Trace H Urine Microscopic WBC 20-30 Ur Squamous Epith Cells Not present Urine Bacteria 1+ Orders Category Date Time Status ADMIT PATIENT INPATIENT .TO MEDSURG (MONITORED BED) ADMISSION 01/25/23 12: 13 Active ABG DRAW REQUEST Stat CARDIO 01/25/23 10:51 Completed EKG-(ED ONLY) Stat CARDIO 01/25/23 10:51 Completed TELEMETRY MONITORING TELE CARE 01/25/23 12:13 Active ED IV/MEDIPORT/POWERPORT .ONCE EMERGENCY 01/25/23 10:51 Active ABG COOX Stat LAB 01/25/23 10:57 Completed C-REACTIVE PROTEIN Stat LAB 01/25/23 11:05 Received CBC W/ AUTO DIFF Stat LAB 01/25/23 11:05 Completed CMP [COMPREHENSIVE METABOLIC PANEL] Stat LAB 01/25/23 11:05 Completed ED PROBNP [NT-PROBNP(ED)] Stat LAB 01/25/23 11:05 Completed LACTIC ACID Stat LAB 01/25/23 11:05 Completed PROCALCITONIN Stat LAB 01/25/23 11:05 Completed TROPONIN I Stat LAB 01/25/23 11:05 Completed UA [URINALYSIS C & S IF INDICATED] Stat LAB 01/25/23 11:50 Completed URINE CULTURE Stat LAB 01/25/23 11:50 Received 0.9 % Sodium Chloride [Saline Flush] Meds 01/25/23 10:51 Active 1 syr IVF PRN PRN Furosemide [Lasix] Meds 01/25/23 12:07 Discontinued 60 mg IVP ONCE STA Lidocaine HCl Jelly [Glydo] Meds 01/25/23 11:31 Discontinued 11 ml TRANSURETH ONCE ONE CHEST, 1V AP ONLY Stat RADS 01/25/23 10:51 Completed Medications Generic Name Dose Route Start Last Admin Trade Name Freq PRN Reason Stop Dose Admin Sodium Chloride 1 syr 01/25/23 10:51 01/25/23 11:54 0.9% Sodium Chloride 10 Ml Disp.Syrin IVF 1 syr PRN PRN Administration To flush IV Discontinued Medications Generic Name Dose Route Start Last Admin Trade Name Freq PRN Reason Stop Dose Admin Furosemide 60 mg 01/25/23 12:07 Furosemide Inj 100 Mg/10 Ml Vial IVP 01/25/23 12:08 ONCE STA Lidocaine HCl 11 ml 01/25/23 11:31 01/25/23 11:54 Lidocaine Jelly 11 Ml Jel.Pf.Ginny (5ml Female/11ml Male) TRANSURETH 01/25/23 11:32 11 ml ONCE ONE Administration 11:38 AM Laboratory evaluation with CBC resulted. Patient with stable anemia. No other abnormalities. Remainder of labs pending. 12:28 PM Patient will be admitted to the hospital for diuresis and monitoring of kidney function and electrolytes. Patient with acute on chronic kidney disease requiring aggressive diuresis for hypoxia, significant peripheral edema. Case was discussed with hospitalist team and they will accept for admission. I did discuss the case with the patient's primary provider, Dr. Martines. Due to patient's multiple comorbidities, he wishes the patient to be admitted by the hospitalist team. Vital Signs: Temp Pulse Resp BP Pulse Ox 01/25/23 10:38 98.6 F 64 20 170/80 H 94 L Discharge Plan Discharge Patient Disposition: ADMITTED INPATIENT Discharge Problem: OTTONIEL (acute kidney injury), CHF (congestive heart failure) Did you review [place] [employer] for ALL controlled substances?: Not Applicable ED Provider: CARL ARGUETA Physician Progress Note: []
[2023-01-25 11:14] LABS: ABG O2 HGB 94.2 % (95-100); ABG PH 7.34 (7.35-7.45); BEecf -5.8 (-2.0-3.0); MetHb 0.6 (0-1.5); TCO2 21.1 (19-24); tHb 8.3 g/dl (11.7-17.4)
--- NOTE | 2023-01-25 11:20 | DI ---
EXAM: CHEST, SINGLE VIEW HISTORY: Short of air COMPARISON: 10/02/2020 FINDINGS / IMPRESSION: Cardiomediastinal contours appear stable. Patchy interstitial prominence the right lung base may represent atelectasis and/or pneumonia. Left lung is well aerated. Chronic beltran vation of the right diaphragm. No pleural effusion. No pneumothorax.
[2023-01-25 11:30] LABS: BASOPHILS # (AUTO) 0.1 K/uL (0-0.2); BASOPHILS % (AUTO) 0.6 % (0.0-3.0); EOSINOPHILS # (AUTO) 0.6 K/ul (0.0-0.7); HEMATOCRIT 28.7 % (42.0-52.0); HEMOGLOBIN 8.6 g/dl (14.0-18.0); IMMATURE GRANULOCYTE % (AUTO) 0.2 % (0.0-5.0); LYMPHOCYTES % (AUTO) 23.9 (10.0-50.0); MEAN CORPUSCULAR HEMOGLOBIN 25.8 pg (27.0-31.0); MEAN CORPUSCULAR VOLUME 86.2 fl (80.0-94.0); MONOCYTES # (AUTO) 0.3 K/uL (0.4-2.0); MONOCYTES % (AUTO) 3.6 (0-10); NEUTROPHILS # (AUTO) 5.3 K/ul (2.0-6.9); NEUTROPHILS % (AUTO) 64.7 % (42.2-75.2); PLATELET COUNT 305 10^3/uL (140-440); RDW COEFFICIENT OF VARIATION 17.1 % (11.6-14.8); RED BLOOD COUNT 3.33 10^6/ul (4.70-6.10); WHITE BLOOD COUNT 8.24 K/ul (4.2-10.2)
[2023-01-25] MEDS ORDERED: GLYDO TRANSURETH ONE (11:31)
[2023-01-25 11:40] LABS: ALANINE AMINOTRANSFERASE 21.5 U/L (0-50); ALBUMIN 3.92 g/dL (3.5-5.0); ALKALINE PHOSPHATASE 153.8 U/L (56-119); ASPARTATE AMINO TRANSFERASE 26.1 U/L (17-59); BILIRUBIN,TOTAL 0.34 mg/dL (0.2-1.3); BLOOD UREA NITROGEN 38.4 mg/dL (9-20); CALCIUM 8.27 mg/dL (8.4-10.2); CHLORIDE 114.2 mmol/L (98-107); CREATININE 2.77 mg/dL (0.60-1.10); GLUCOSE 126.1 mg/dL (74-106); POTASSIUM 4.23 mmol/L (3.5-5.1); TOTAL PROTEIN 6.92 g/dL (6.3-8.2)
[2023-01-25 11:52] LABS: TROPONIN I < 0.012 ng/ml (0.0000-0.120)
[2023-01-25 12:05] LABS: BILIRUBIN,URINE Negative (NEGATIVE); CLARITY,URINE Clear (CLEAR); COLOR,URINE Yellow (YELLOW); GLUCOSE, URINE (UA) Negative (NEGATIVE); KETONES,URINE Negative (NEGATIVE); LEUKOCYTE ESTERASE ,URINE Trace (NEGATIVE); NITRITE,URINE Negative (NEGATIVE); PH,URINE 5.5 (5-9); PROTEIN,URINE 1+ (NEGATIVE); URINE, BLOOD Trace-intact (NEGATIVE); UROBILINOGEN,URINE 0.2 (0.2)
[2023-01-25] MEDS ORDERED: LASIX IVP STA (12:07)
[2023-01-25 12:09] LABS: BACTERIA,URINE 1+ (NOT PRESENT); SQUAMOUS EPITHELIAL CELL,UR NOT PRESENT (0-5); URINE WBC, MICROSCOPIC 20-30 (0-2)
[2023-01-25] MEDS ORDERED: TYLENOL PO PRN (12:54)
--- NOTE | 2023-01-25 13:32 | PCM ---
Date of Service Date Seen by Provider: 01/25/23 Time Seen by Provider: 13:10 Admit Day/Time Admission Date: 01/25/23 Admission Time: 12:13 Reason for Admission Chief Complaint: CHF, OTTONIEL Hospital Provider Hospital Provider: RERE VARGAS PA-C, [facility] [place] Primary Care Physician Primary Care Physician: BUD WOODS MD History of Present Illness History of Present Illness: Patient is an 87-year-old male from home with past medical history of chronic kidney disease, history of prostate cancer, arthritis, COPD, hypertension, diabetes, anemia who presented to ER with lower extremity edema that has been worsening over the last week and shortness of breath. He states that his breathing is always "bad" but has been worse over the last few days. states that since he broke his right arm he has been sleeping in his recliner. He tries to keep his legs elevated but they are often down. No changes in diet or recent medications he does take Lasix and has been compliant with this. He has had about 15 pound weight gain. He had an echo in August 2022 with a normal EF. He denies any chest pain. He does straight cath himself and follows with a specialist for his urinary issues. In November he was referred to nephrology for his chronic kidney disease. In the ER he was found to have significant pitting edema. Creatinine 2.77 when his baseline is normally 1.2- 1.5. BNP 1170. UA mildly suspect for urinary tract infection. Procal mildly elevated at 0.06. He denies any fevers. Chest x-ray was negative for any pleural effusions but did mention atelectasis versus pneumonia. He was given 60 of Lasix IV. Patient admitted to [facility]. Case Discussed With Case Discussed With: Patient's case was discussed with the ER Physicians, Dr. Moulton. [facility] Medical History Bronchitis J40 - BRONCHITIS, NOT SPECIFIED ACUTE OR CHRONIC (ICD-10) H/O: asbestos exposure Z77.090 - Contact with and (suspected) exposure to asbestos (ICD-10) Pneumonia due to 2019 novel coronavirus U07.1 - COVID-19 (ICD-10) J12.82 - Pneumonia due to coronavirus disease 2019 (ICD-10) Pneumonitis J18.9 - PNEUMONIA, UNSPECIFIED ORGANISM (ICD-10) Surgical History S/P appendectomy Z90.49 - Acquired absence of other specified parts of digestive tract (ICD- 10) S/P cholecystectomy Z90.49 - Acquired absence of other specified parts of digestive tract (ICD- 10) Family History Mother No problems noted. FATHER No problems noted. Social History Smoking and tobacco status: Former smoker Quit date: 08/12/79 Alcohol intake: never Counseling given: No Substance use type: does not use Special alfred needs: No Agree to transfusion: Yes Adopted: No Caregiver/support person: No Foster care: No Household members: spouse Housing: house Marital status: M Lives independently: Yes Number of children: 6 Financial difficulty paying for basics: not very hard service: No alf: No Current occupational status: retired Pets and animals: No History of recent travel: No Sexually active: No Do you think of yourself as: straight/heterosexual Current gender identity: male Seatbelt use: always Drives intoxicated or rides with intoxicated street flusher driver: No Water heater temperature set < 120 degrees: Yes Working smoke detector in home: Yes Fire extinguisher in home: No Carbon monoxide detector in home: Yes Firearms in home: No Allergies Allergies Allergy/AdvReac Type Severity Reaction Status Date / Time Iodinated Contrast Media AdvReac Severe Anaphylaxis Verified 01/25/23 10:45 [Iodinated Contrast Media - IV Dye] iodine AdvReac Severe Anaphylaxis Verified 01/25/23 10:45 Current Medications Home Medications sitagliptin phosphate 100 mg tablet (Januvia) 100 mg PO DAILY #90 tabs 10/02/22 [Rx Confirmed 01/25/23 Last Taken Unknown] finasteride 5 mg tablet See Rx Instructions .Route .COMPLEX #30 tabs 10/08/22 [Rx Confirmed 01/25/23 Last Taken Unknown] metformin 1,000 mg tablet See Rx Instructions .Route .COMPLEX #90 tabs 10/08/22 [Rx Confirmed 01/25/23 Last Taken Unknown] tamsulosin 0.4 mg capsule See Rx Instructions .Route .COMPLEX #60 caps 10/08/22 [Rx Confirmed 01/25/23 Last Taken Unknown] duloxetine 30 mg capsule,delayed release See Rx Instructions .Route .COMPLEX #30 caps 10/30/22 [Rx Confirmed 01/25/23 Last Taken Unknown] furosemide 40 mg tablet See Rx Instructions .Route .COMPLEX #30 tabs 10/30/22 [Rx Confirmed 01/25/23 Last Taken Unknown] gabapentin 600 mg tablet See Rx Instructions .Route .COMPLEX #90 tabs 10/30/22 [Rx Confirmed 01/25/23 Last Taken Unknown] aspirin See Rx Instructions .Route .COMPLEX #13 tabs 11/26/22 [Rx Confirmed 01/25/23 Last Taken Unknown] aspirin 81 mg tablet,delayed release See Rx Instructions .Route .COMPLEX #30 ea 11/26/22 [Rx Confirmed 01/25/23 Last Taken Unknown] losartan 50 mg tablet See Rx Instructions .Route .COMPLEX #30 tabs 11/26/22 [Rx Confirmed 01/25/23 Last Taken Unknown] potassium chloride 10 mEq tablet,extended release(part/cryst) 10 meq PO QDAY #90 tabs 01/01/23 [Rx Confirmed 01/25/23 Last Taken Unknown] insulin detemir U-100 100 unit/mL (3 mL) subcutaneous pen (Levemir FlexPen) 15 unit subcut BID 01/04/23 [History Confirmed 01/25/23 Last Taken Unknown] metolazone 2.5 mg tablet 2.5 mg PO QDAY #3 tabs 01/04/23 [Rx Confirmed 01/25/23 Last Taken Unknown] pantoprazole 40 mg tablet,delayed release (Protonix) 40 mg PO QDAY #30 tabs 01/08/23 [Rx Confirmed 01/25/23 Last Taken Unknown] ferrous sulfate 325 mg (65 mg iron) tablet 325 mg PO BID #60 tabs 01/15/23 [Rx Confirmed 01/25/23 Last Taken Unknown] Home Acetaminophen (Acetaminophen 325 Mg Tablet) 650 mg PO Q4H PRN PRN Reason: Mild Pain Aspirin (Aspirin 81 Mg Tablet.) 81 mg PO DAILYWM DORCAS Duloxetine HCl (Duloxetine Hcl 30 Mg Capsule.) 30 mg PO DAILY [facility] Enoxaparin Sodium (Enoxaparin Sodium 30 Mg/0.3 Ml Syr) 30 mg SUBCUT DAILY [facility] Ferrous Sulfate (Ferrous Sulfate 324 Mg Tablet.) 324 mg PO BID [facility] Finasteride (Finasteride 5 Mg Tablet) 5 mg PO DAILY [facility] Gabapentin (Gabapentin 300 Mg Capsule) 600 mg PO DAILY [facility] Gabapentin (Gabapentin 300 Mg Capsule) 1,200 mg PO BEDTIME [facility] CEFTRIAXONE/D5W 1 GM PREMIX (Rocephin 1 Gm/50 Ml D5w) 1 gm in 50 mls @ 75 mls/hr IV DAILY [facility] Stop: 01/28/23 13:49 Insulin Detemir (Insulin Detemir 100 Units/Ml) 15 unit SUBCUT BID [facility] Insulin Human Lispro (Insulin Lispro 100 Unit/Ml (3 Ml) Vial) 0 unit SUBCUT PRN PRN; Protocol PRN Reason: Hyperglycemia Ondansetron HCl (Ondansetron Hcl/Pf 4 Mg/2 Ml Sdv) 4 mg IVP Q6H PRN PRN Reason: Nausea / Vomiting Pantoprazole Sodium (Pantoprazole Sodium 40 Mg Tablet.) 40 mg PO QDAC [facility] Sodium Chloride (0.9% Sodium Chloride 10 Ml Disp.Syrin) 1 syr IVF PRN PRN PRN Reason: To flush IV Last Admin: 01/25/23 11:54 Dose: 1 syr Tamsulosin HCl (Tamsulosin Hcl 0.4 Mg Cap.Er.24h) 0.8 mg PO BEDTIME DORCAS Discontinued Medications Aspirin (Aspirin 81 Mg Tablet.) 81 mg PO DAILYWM [facility] Duloxetine HCl (Duloxetine Hcl 30 Mg Capsule.) 30 mg PO DAILY [facility] Finasteride (Finasteride 5 Mg Tablet) 5 mg PO DAILY [facility] Furosemide (Furosemide Inj 100 Mg/10 Ml Vial) 60 mg IVP ONCE STA Stop: 01/25/23 12:08 Last Admin: 01/25/23 12:41 Dose: 60 mg Lidocaine HCl (Lidocaine Jelly 11 Ml Jel.Pf.Ginny (5ml Female/11ml Male)) 11 ml TRANSURETH ONCE ONE Stop: 01/25/23 11:32 Last Admin: 01/25/23 11:54 Dose: 11 ml Pantoprazole Sodium (Pantoprazole Sodium 40 Mg Tablet.) 40 mg PO QDAC [facility] Review of Systems Constitutional: Reports Fatigue, Recent Weight Gain and Weakness; Denies Fever Head: Reports Normocephalic and Atraumatic Eyes: Denies Vision Changes Ears: Denies Pain or Drainage Nose: Denies Post Nasal Drip or Congestion Throat: Denies Sore Throat or Difficulty Swallowing Cardiovascular: Reports Edema; Denies Chest pain or Chest Pressure Respiratory: Reports Shortness of air; Denies Cough, Wheeze or Pain with breathing Gastrointestinal: Denies Nausea, Vomiting, Diarrhea or Abdominal pain Genitourinary: Reports Other (+requires intermittent straight cath) Musculoskeletal: Reports Other (Right arm pain from recent fracture ) Dermatologic: Denies Rashes Hematology: Reports Anemia Neurological: Reports Weakness; Denies Headache or Dizziness Psychiatric: Denies Depression Physical examination Most Recent Vital Signs: Most Recent Vital Signs Temperature 98.6 F 01/25/23 10:38 Temperature Source Infrared 01/25/23 10:38 Pulse Rate 64 01/25/23 10:38 Respiratory Rate 20 01/25/23 10:38 Blood Pressure 170/80 H 01/25/23 10:38 O2 Sat by Pulse Oximetry 94 L 01/25/23 10:38 Height 5 ft 7 in 01/25/23 10:38 Weight 258 lb 2.581 oz 01/25/23 10:38 Telemetry Heart Rate 81 05/15/19 07:00 Telemetry SPO2 94 05/15/19 07:00 Appearance: Positive Well-appearing, Well-nourished, No Apparent Distress and Alert and Oriented x3 Skin: Positive [place], Warm, Good Turgor and Good Color; Negative Rashes HEENT: Positive Normocephalic, Atraumatic and Oral Mucous Moist Neck: Positive Supple and Midline Trachea Chest/Lungs: Positive Symmetrical With Equal Breath Sounds and Clear to Auscultation Bilaterally; Negative Rales, Rhonci or Wheezes Heart: Positive RRR GI/: Positive Soft, Nontender, Bowel Sounds Normal and No Distention Musculoskeletal: Positive Decreased ROM (right arm from recent fracture, in brace. +pulses intact. no significant swelling. ) Extremities: Positive Edema (2-3+ pitting edema to knees bilaterally. Small minor scratches to legs ene from cats. ) Neurological: Positive Alert and Other (+generalized weakness. ) Psychiatric: Positive Oriented x4, Appropriate Mood and Appropriate Affect Labs This Visit Labs This Visit: Labs This Visit 01/25/23 01/25/23 01/25/23 10:57 11:05 11:50 WBC 8.24 RBC 3.33 L Hgb 8.6 L Hct 28.7 L MCV 86.2 MCH 25.8 L MCHC 30.0 L RDW Coeff of Toby 17.1 H Plt Count 305 Immature Gran % (Auto) 0.2 Neut % (Auto) 64.7 Lymph % (Auto) 23.9 [place] % (Auto) 3.6 Eos % (Auto) 7.0 Baso % (Auto) 0.6 Neut # (Auto) 5.3 Lymph # (Auto) 2.0 [place] # (Auto) 0.3 L Eos # (Auto) 0.6 Baso # (Auto) 0.1 Immature Gran # (Auto) 0.0 Puncture Site Lbrach Base Excess -5.8 L O2 Saturation 92.0 L ABG pH 7.34 L ABG pCO2 37.0 ABG pO2 68.0 L ABG HCO3 20.0 L ABG Total CO2 21.1 Srinivasa Test Pos Hemoglobin 0.6 Oxyhemoglobin 94.2 L Carboxyhemoglobin 2.0 H Total Hemoglobin 8.3 L Sodium 144.0 Potassium 4.23 Chloride 114.2 H Carbon Dioxide 24.0 Anion Gap 10.03 BUN 38.4 H Creatinine 2.77 H Estimated GFR (MDRD) 22.00 BUN/Creatinine Ratio 13.86 Glucose 126.1 H Lactic Acid 0.94 Calcium 8.27 L Total Bilirubin 0.34 AST 26.1 ALT 21.5 Alkaline Phosphatase 153.8 H Troponin I < 0.012 NT-Pro-B Natriuret Pep 1170 H Total Protein 6.92 Albumin 3.92 Globulin 3.00 Albumin/Globulin Ratio 1.30 Procalcitonin 0.06 H Urine Color Yellow Urine Clarity Clear Urine pH 5.5 Ur Specific [place] 1.015 Urine Protein 1+ H Urine Glucose (UA) Negative Urine Ketones Negative Urine Blood Trace-intact H Urine Nitrite Negative Urine Bilirubin Negative Urine Urobilinogen 0.2 Ur Leukocyte Esterase Trace H Urine Microscopic WBC 20-30 Ur Squamous Epith Cells Not present Urine Bacteria 1+ Imaging Imaging: EXAM: CHEST, SINGLE VIEW HISTORY: Short of air COMPARISON: 10/02/2020 FINDINGS / IMPRESSION: Cardiomediastinal contours appear stable. Patchy interstitial prominence the right lung base may represent atelectasis and/or pneumonia. Left lung is well aerated. Chronic elevation of the right diaphragm. No pleural effusion. No pneumothorax. Review Statement Review Statement: I have independently reviewed and interpreted the labs/EKGs/imaging that were ordered by the ER provider. I have reviewed all outside records that are available currently in our EMR including imaging/notes/labs from previous visits. Plan Plan: A&P: 1. Acute heart failure with preserved ejection fraction exacerbation - Lasix 60 IV given in ER. With OTTONIEL, will start lasix 40 mg bid IVP but monitor renal function closely. Echo 6 months ago showed normal EF and diastolic function. Hold home lasix. Cardiac/low sodium diet. Marcello hose. Elevate legs. PT/OT. Shafer, I&Os. Daily weights. BNP 1170. 2. UTI in setting of straight cathing - Rocephin ordered, urine culture pending. Shafer placed. 3. OTTONIEL, stage I in setting of heart failure - Patient appears fluid overloaded, will diurese and carefully monitor renal function and urine output. 4. DMT2, insulin dependent - Continue home long acting, SS ordered. Accuchecks achs. Hold metformin. 5. Hypertension - Continue home meds. Hold losartan. 6. BPH - Continue home meds 7. GERD - Continue home meds DVT Prophylaxis: Lovenox Time Spent: Greater than 80 minutes spent with patient, 50% of the time spent with this patient was devoted to counseling and coordination of care. [facility] minutes spent discussing advance care planning. Patient states he "does not want to be a vegetable for years and years." Discussed realistic scenarios and expectations. He and will discuss code status further and let us know. Admit to: Inpatient Discussed Plan of Care with Dr. [place]. Medications Medication Orders: Medications Ordered Category Date Time Status 0.9 % Sodium Chloride [Saline Flush] Meds 01/25/23 10:51 Active 1 syr IVF PRN PRN Acetaminophen [Tylenol] Meds 01/25/23 12:54 Active 650 mg PO Q4H PRN Ondansetron HCl/Pf [Zofran 4 mg/2 ml] Meds 01/25/23 12:54 Active 4 mg IVP Q6H PRN
[2023-01-25] MEDS ORDERED: PROTONIX PO SCH (14:00)
[2023-01-25] MEDS ORDERED: PROSCAR PO SCH (14:00)
[2023-01-25] MEDS ORDERED: NEURONTIN PO SCH (14:00)
[2023-01-25] MEDS ORDERED: CYMBALTA PO SCH (14:00)
[2023-01-25] MEDS ORDERED: ASPIRIN EC PO SCH (14:00)
[2023-01-25] MEDS ORDERED: LASIX IVP SCH (17:00)
[2023-01-25 18:15] VITALS: BMI 39.5
[2023-01-25] MEDS: ROCEPHIN 1 GM/50 ML D5W 1 GM/50 ML BAG IV SCH (18:51)
[2023-01-25] MEDS: FLOMAX PO SCH (20:15)
[2023-01-25] MEDS: FERROUS SULFATE PO SCH (20:15)
[2023-01-25] MEDS: HUMALOG SUBCUT PRN (20:15)
[2023-01-25] MEDS: NEURONTIN PO SCH (20:15)
[2023-01-25] MEDS: LEVEMIR SUBCUT SCH (20:17)
[2023-01-25] MEDS ORDERED: NON-FORMULARY MEDICATION (Ferrous Sulfate 325 mg (65 mg iron) tablet) PO SCH (21:00)
[2023-01-25] MEDS: LASIX IVP SCH (21:44)
[2023-01-26] MEDS: PROTONIX PO SCH (05:32)
[2023-01-26 05:43] LABS: BASOPHILS # (AUTO) 0.1 K/uL (0-0.2); BASOPHILS % (AUTO) 0.6 % (0.0-3.0); EOSINOPHILS # (AUTO) 0.6 K/ul (0.0-0.7); EOSINOPHILS % (AUTO) 7.1 % (0.0-7.0); HEMATOCRIT 25.7 % (42.0-52.0); HEMOGLOBIN 7.7 g/dl (14.0-18.0); IMMATURE GRANULOCYTE % (AUTO) 0.4 % (0.0-5.0); LYMPHOCYTES # (AUTO) 1.6 K/uL (0.60-3.4); LYMPHOCYTES % (AUTO) 19.9 (10.0-50.0); MEAN CORPUSCULAR HEMOGLOBIN 26.1 pg (27.0-31.0); MEAN CORPUSCULAR VOLUME 87.1 fl (80.0-94.0); MONOCYTES # (AUTO) 0.4 K/uL (0.4-2.0); MONOCYTES % (AUTO) 5.2 (0-10); NEUTROPHILS # (AUTO) 5.5 K/ul (2.0-6.9); NEUTROPHILS % (AUTO) 66.8 % (42.2-75.2); PLATELET COUNT 281 10^3/uL (140-440); RDW COEFFICIENT OF VARIATION 17.2 % (11.6-14.8); RED BLOOD COUNT 2.95 10^6/ul (4.70-6.10); WHITE BLOOD COUNT 8.21 K/ul (4.2-10.2)
[2023-01-26 06:01] LABS: ALBUMIN 3.34 g/dL (3.5-5.0); ALKALINE PHOSPHATASE 127.9 U/L (56-119); ASPARTATE AMINO TRANSFERASE 21.7 U/L (17-59); BILIRUBIN,TOTAL 0.19 mg/dL (0.2-1.3); BLOOD UREA NITROGEN 38.5 mg/dL (9-20); CALCIUM 7.81 mg/dL (8.4-10.2); CARBON DIOXIDE 25.4 mmol/L (22-30.0); CHLORIDE 114.1 mmol/L (98-107); CREATININE 2.88 mg/dL (0.60-1.10); GLUCOSE 173.1 mg/dL (74-106); SODIUM 143.3 mmol/L (134.5-145); TOTAL PROTEIN 6.05 g/dL (6.3-8.2)
[2023-01-26 06:12] LABS: POTASSIUM 4.09 mmol/L (3.5-5.1)
[2023-01-26] MEDS: LASIX IVP SCH ×2 (06:42→19:53)
[2023-01-26] MEDS: HUMALOG SUBCUT PRN ×3 (06:43→20:27)
[2023-01-26] MEDS: ROCEPHIN 1 GM/50 ML D5W 1 GM/50 ML BAG IV SCH (08:01)
[2023-01-26] MEDS: LOVENOX SUBCUT SCH (08:01)
[2023-01-26] MEDS: LEVEMIR SUBCUT SCH ×2 (08:02→20:20)
[2023-01-26] MEDS: ASPIRIN EC PO SCH (08:05)
[2023-01-26] MEDS: FERROUS SULFATE PO SCH ×2 (08:05→20:19)
[2023-01-26] MEDS: CYMBALTA PO SCH (08:06)
[2023-01-26] MEDS: PROSCAR PO SCH (08:07)
[2023-01-26] MEDS: NEURONTIN PO SCH ×2 (08:07→20:19)
--- NOTE | 2023-01-26 09:50 | PCM.PROG ---
Date/Time Seen Date Seen by Provider: 01/26/23 Time Seen by Provider: 08:40 Provider Provider: RERE VARGAS PA-C, [facility] Chief Complaint Chief Complaint: CHF, OTTONIEL Subjective Subjective: Patient feels his breathing is a lot better today. Swelling mildly improved. Sitting in chair eating breakfast. Dropped to 88% during the night and was tiff jeannie on 2L. Hgb trending down. Was seen in clinic regarding anemia, started on iron tabs. He's unsure if he would want a colonoscopy in future to work it up. Nurse states there was small amount of BRB with stool yesterday. Pt denies blood any other time. Objective Appearance: Positive Well-appearing, Well-nourished, No Apparent Distress and Alert and Oriented x3 Chest/Lungs: Positive Symmetrical With Equal Breath Sounds and Clear to Auscultation Bilaterally; Negative Rales, Rhonci or Wheezes Heart: Positive RRR and Other (2-3+ pitting edema ene lower ext up to knees. ) GI/: Positive Soft, Nontender, Bowel Sounds Normal and No Distention Musculoskeletal: Positive Decreased ROM (right arm due to recent fracture ) Neurological: Positive Cranial Nerves Intact, Alert and Other (+Generalized weakness. ) Vital Signs Vital Signs: Vital Signs: Last 24 Hours 01/25/23 10:38 01/25/23 14:00 01/25/23 17:30 Temperature 98.6 F 97.5 F L 97.5 F L Temperature Source Infrared Oral Oral Pulse Rate 64 66 66 Respiratory Rate 20 18 18 Blood Pressure 170/80 H 151/59 H Blood Pressure Mean 89 Blood Pressure Left Arm 151/59 Blood Pressure Location Right Arm Blood Pressure Position Supine Sitting O2 Sat by Pulse Oximetry 94 L 95 94 L Oxygen Delivery Method Room Air Room Air Oxygen Flow Rate Height 5 ft 7 in 5 ft 7 in Weight 258 lb 2.581 oz 252 lb 8 oz Telemetry Type Telemetry Monitoring Telemetry Heart Rate EKG CT Interval EKG QRS Interval Telemetry Strip Reading 01/25/23 18:00 01/25/23 17:30 01/25/23 13:00 Temperature 97 F L Temperature Source Oral Pulse Rate 70 Respiratory Rate 18 20 Blood Pressure 154/59 H Blood Pressure Mean 90 Blood Pressure Left Arm Blood Pressure Location Right Arm Blood Pressure Position Sitting O2 Sat by Pulse Oximetry 95 Oxygen Delivery Method Room Air Room Air Oxygen Flow Rate Height Weight Telemetry Type Remote Telemetry Telemetry Monitoring Telemetry Heart Rate EKG CT Interval EKG QRS Interval Telemetry Strip Reading not placed yet 01/25/23 19:00 01/25/23 20:00 01/25/23 20:00 Temperature Temperature Source Pulse Rate Respiratory Rate 20 Blood Pressure Blood Pressure Mean Blood Pressure Left Arm Blood Pressure Location Blood Pressure Position O2 Sat by Pulse Oximetry Oxygen Delivery Method Room Air Oxygen Flow Rate Height Weight Telemetry Type Remote Telemetry Remote Telemetry Telemetry Monitoring Continues Started Telemetry Heart Rate [address] Interval 0.14 0.14 EKG QRS Interval 0.08 0.08 Telemetry Strip Reading NSR SR 01/25/23 21:43 01/26/23 02:00 01/26/23 01:00 Temperature 97.6 F 97.6 F Temperature Source Temporal Artery Scan Temporal Artery Scan Pulse Rate 72 79 Respiratory Rate 22 H 24 H Blood Pressure 152/65 H 158/64 H Blood Pressure Mean 94 95 Blood Pressure Left Arm Blood Pressure Location Right Arm Right Arm Blood Pressure Position Supine Supine O2 Sat by Pulse Oximetry 90 L 88 L Oxygen Delivery Method Room Air Room Air Oxygen Flow Rate Height Weight Telemetry Type Remote Telemetry Telemetry Monitoring Continues Telemetry Heart Rate [address] Interval 0.16 EKG QRS Interval 0.06 Telemetry Strip Reading SR 01/26/23 05:06 01/26/23 05:37 01/26/23 05:38 Temperature 98.0 F Temperature Source Temporal Artery Scan Pulse Rate 69 Respiratory Rate 18 Blood Pressure 147/64 H Blood Pressure Mean 91 Blood Pressure Left Arm Blood Pressure Location Right Arm Blood Pressure Position Sitting O2 Sat by Pulse Oximetry 97 98 Oxygen Delivery Method Nasal Cannula Nasal Cannula Oxygen Flow Rate 2 2 Height Weight 252 lb 3 oz Telemetry Type Telemetry Monitoring Telemetry Heart Rate EKG CT Interval EKG QRS Interval Telemetry Strip Reading 01/26/23 07:00 Temperature Temperature Source Pulse Rate Respiratory Rate Blood Pressure Blood Pressure Mean Blood Pressure Left Arm Blood Pressure Location Blood Pressure Position O2 Sat by Pulse Oximetry Oxygen Delivery Method Oxygen Flow Rate Height Weight Telemetry Type Remote Telemetry Telemetry Monitoring Continues Telemetry Heart Rate [address] Interval 0.16 EKG QRS Interval 0.06 Telemetry Strip Reading SR Lab Results Lab Results: Lab Results: Last 24 Hours 01/26/23 01/25/23 01/25/23 04:45 11:50 11:05 WBC 8.21 8.24 RBC 2.95 L 3.33 L Hgb 7.7 L 8.6 L Hct 25.7 L 28.7 L MCV 87.1 86.2 MCH 26.1 L 25.8 L MCHC 30.0 L 30.0 L RDW Coeff of Toby 17.2 H 17.1 H Plt Count 281 305 Immature Gran % (Auto) 0.4 0.2 Neut % (Auto) 66.8 64.7 Lymph % (Auto) 19.9 23.9 [place] % (Auto) 5.2 3.6 Eos % (Auto) 7.1 H 7.0 Baso % (Auto) 0.6 0.6 Neut # (Auto) 5.5 5.3 Lymph # (Auto) 1.6 2.0 [place] # (Auto) 0.4 0.3 L Eos # (Auto) 0.6 0.6 Baso # (Auto) 0.1 0.1 Immature Gran # (Auto) 0.0 0.0 Puncture Site Base Excess O2 Saturation ABG pH ABG pCO2 ABG pO2 ABG HCO3 ABG Total CO2 Srinivasa Test Hemoglobin Oxyhemoglobin Carboxyhemoglobin Total Hemoglobin Sodium 143.3 144.0 Potassium 4.09 4.23 Chloride 114.1 H 114.2 H Carbon Dioxide 25.4 24.0 Anion Gap 7.89 10.03 BUN 38.5 H 38.4 H Creatinine 2.88 H 2.77 H Estimated GFR (MDRD) 21.00 22.00 BUN/Creatinine Ratio 13.36 13.86 Glucose 173.1 H 126.1 H Lactic Acid 0.94 Calcium 7.81 L 8.27 L Total Bilirubin 0.19 L 0.34 AST 21.7 26.1 ALT 19.0 21.5 Alkaline Phosphatase 127.9 H D 153.8 H Troponin I < 0.012 C-Reactive Prot, Quant 34 H NT-Pro-B Natriuret Pep 1170 H Total Protein 6.05 L 6.92 Albumin 3.34 L 3.92 Globulin 2.71 3.00 Albumin/Globulin Ratio 1.23 1.30 Procalcitonin 0.06 H Urine Color Yellow Urine Clarity Clear Urine pH 5.5 Ur Specific Coffeen 1.015 Urine Protein 1+ H Urine Glucose (UA) Negative Urine Ketones Negative Urine Blood Trace-intact H Urine Nitrite Negative Urine Bilirubin Negative Urine Urobilinogen 0.2 Ur Leukocyte Esterase Trace H Urine Microscopic WBC 20-30 Ur Squamous Epith Cells Not present Urine Bacteria 1+ 01/25/23 10:57 WBC RBC Hgb Hct MCV MCH MCHC RDW Coeff of Toby Plt Count Immature Gran % (Auto) Neut % (Auto) Lymph % (Auto) [place] % (Auto) Eos % (Auto) Baso % (Auto) Neut # (Auto) Lymph # (Auto) [place] # (Auto) Eos # (Auto) Baso # (Auto) Immature Gran # (Auto) Puncture Site Lbrach Base Excess -5.8 L O2 Saturation 92.0 L ABG pH 7.34 L ABG pCO2 37.0 ABG pO2 68.0 L ABG HCO3 20.0 L ABG Total CO2 21.1 Srinivasa Test Pos Hemoglobin 0.6 Oxyhemoglobin 94.2 L Carboxyhemoglobin 2.0 H Total Hemoglobin 8.3 L Sodium Potassium Chloride Carbon Dioxide Anion Gap BUN Creatinine Estimated GFR (MDRD) BUN/Creatinine Ratio Glucose Lactic Acid Calcium Total Bilirubin AST ALT Alkaline Phosphatase Troponin I C-Reactive Prot, Quant NT-Pro-B Natriuret Pep Total Protein Albumin Globulin Albumin/Globulin Ratio Procalcitonin Urine Color Urine Clarity Urine pH Ur Specific Coffeen Urine Protein Urine Glucose (UA) Urine Ketones Urine Blood Urine Nitrite Urine Bilirubin Urine Urobilinogen Ur Leukocyte Esterase Urine Microscopic WBC Ur Squamous Epith Cells Urine Bacteria Additional Comments Additional Comments: I have independently reviewed and interpreted the labs/EKGs/imaging ordered d uring this hospital stay. I have reviewed outside records that are available in our EMR that pertain to medical stay including imaging/notes/labs from previous visits. Active Medications Active Medications: Medications Generic Name Dose Route Start Last Admin Trade Name Freq PRN Reason Stop Dose Admin Acetaminophen 650 mg 01/25/23 12:54 Acetaminophen 325 Mg Tablet PO Q4H PRN Mild Pain Aspirin 81 mg 01/26/23 08:30 01/26/23 08:05 Aspirin 81 Mg Tablet. PO 81 mg DAILYWM DORCAS Administration Duloxetine HCl 30 mg 01/26/23 09:00 01/26/23 08:06 Duloxetine Hcl 30 Mg Capsule. PO 30 mg DAILY DORCAS Administration Enoxaparin Sodium 30 mg 01/26/23 09:00 01/26/23 08:01 Enoxaparin Sodium 30 Mg/0.3 Ml Syr SUBCUT 30 mg DAILY DORCAS Administration Ferrous Sulfate 324 mg 01/25/23 21:00 01/26/23 08:05 Ferrous Sulfate 324 Mg Tablet. PO 324 mg BID DORCAS Administration Finasteride 5 mg 01/26/23 09:00 01/26/23 08:07 Finasteride 5 Mg Tablet PO 5 mg DAILY DORCAS Administration Furosemide 40 mg 01/25/23 21:00 01/26/23 06:42 Furosemide Inj 40 Mg/4 Ml Vial IVP 40 mg BIDAC DORCAS Administration Gabapentin 600 mg 01/26/23 09:00 01/26/23 08:07 Gabapentin 300 Mg Capsule PO 600 mg DAILY DORCAS Administration Gabapentin 1,200 mg 01/25/23 21:00 01/25/23 20:15 Gabapentin 300 Mg Capsule PO 1,200 mg BEDTIME DORCAS Administration CEFTRIAXONE/D5W 1 GM PREMIX 1 gm in 50 mls @ 75 mls/hr 01/25/23 13:50 01/26/23 08:01 Rocephin 1 Gm/50 Ml D5w IV 01/28/23 13:49 75 mls/hr DAILY DORCAS Administration Insulin Detemir 15 unit 01/25/23 21:00 01/26/23 08:02 Insulin Detemir 100 Units/Ml SUBCUT 15 unit BID DORCAS Administration Insulin Human Lispro 0 unit 01/25/23 13:47 01/26/23 06:43 Insulin Lispro 100 Unit/Ml (3 Ml) Vial SUBCUT 3 unit PRN PRN Administration Hyperglycemia Protocol Ondansetron HCl 4 mg 01/25/23 12:54 Ondansetron Hcl/Pf 4 Mg/2 Ml Sdv IVP Q6H PRN Nausea / Vomiting Pantoprazole Sodium 40 mg 01/26/23 06:30 01/26/23 05:32 Pantoprazole Sodium 40 Mg Tablet. PO 40 mg QDAC DORCAS Administration Sodium Chloride 1 syr 01/25/23 10:51 01/25/23 11:54 0.9% Sodium Chloride 10 Ml Disp.Syrin IVF 1 syr PRN PRN Administration To flush IV Tamsulosin HCl 0.8 mg 01/25/23 21:00 01/25/23 20:15 Tamsulosin Hcl 0.4 Mg Cap.Er.24h PO 0.8 mg BEDTIME DORCAS Administration Plan Plan: 1. Acute heart failure with preserved ejection fraction exacerbation - Lasix 60 IV given in ER. With OTTONIEL, continue lasix 40 mg bid IVP but monitor renal function closely. Echo 6 months ago showed normal EF and diastolic function. Hold home lasix. Cardiac/low sodium diet. Marcello hose. Elevate legs. PT/OT. Shafer, I&Os. Daily weights. BNP 1170. 2. UTI in setting of straight cathing - Rocephin ordered, urine culture pending, showing gram negative. Shafer placed. 3. OTTONIEL, stage I in setting of heart failure - Patient appears fluid overloaded, will diurese and carefully monitor renal function and urine output. 4. DMT2, insulin dependent - Continue home long acting, SS ordered. Accuchecks achs. Hold metformin. 5. Hypertension - Continue home meds. Hold losartan. 6. BPH - Continue home meds 7. GERD - Continue home meds 8. Acute on chronic anemia - Anemia labs, occult stool. Repeat cbc in AM. DVT Prophylaxis: Lovenox Review Statement Review Statement: I have personally discussed and reviewed the patient's visit/currently labs/imaging/decision making with Dr. Woods, my supervising attending. Greater that 50 minutes spent with patient, 50% of the time spent with this patient was devoted to counseling and coordination of care.
[2023-01-26 11:05] LABS: OCCULT BLOOD SAMPLE 1 NEGATIVE (NEGATIVE)
[2023-01-26 14:13] LABS: RETICULOCYTE % 1.3 %; RETICULOCYTE HEMOGLOBIN 26.5
[2023-01-26 14:28] LABS: IRON 18.5 ug/dL (49-181)
[2023-01-26 14:29] LABS: BLOOD UREA NITROGEN 38.9 mg/dL (9-20); CALCIUM 8.06 mg/dL (8.4-10.2); CARBON DIOXIDE 24.1 mmol/L (22-30.0); CHLORIDE 112.9 mmol/L (98-107); CREATININE 2.73 mg/dL (0.60-1.10); GLUCOSE 202.6 mg/dL (74-106); POTASSIUM 4.25 mmol/L (3.5-5.1); SODIUM 142.3 mmol/L (134.5-145)
[2023-01-26 15:06] LABS: FERRITIN 52.7 ng/mL (17.9-464.0)
[2023-01-26 15:36] LABS: OCCULT BLOOD SAMPLE 2 NO SPECIMEN RECEIVED (NEGATIVE); OCCULT BLOOD SAMPLE 3 NO SPECIMEN RECEIVED (NEGATIVE)
[2023-01-26 15:37] LABS: FOLATE 4.09 ng/mL
[2023-01-26] MEDS: FLOMAX PO SCH (20:19)
[2023-01-26 20:43] LABS: HEMATOCRIT 29.8 % (42.0-52.0)
[2023-01-27 05:16] LABS: BASOPHILS % (AUTO) 0.4 % (0.0-3.0); EOSINOPHILS # (AUTO) 0.7 K/ul (0.0-0.7); EOSINOPHILS % (AUTO) 6.6 % (0.0-7.0); HEMATOCRIT 29.2 % (42.0-52.0); HEMOGLOBIN 8.6 g/dl (14.0-18.0); IMMATURE GRANULOCYTE % (AUTO) 0.2 % (0.0-5.0); LYMPHOCYTES # (AUTO) 1.8 K/uL (0.60-3.4); LYMPHOCYTES % (AUTO) 17.2 (10.0-50.0); MEAN CORPUSCULAR HEMOGLOBIN 25.8 pg (27.0-31.0); MEAN CORPUSCULAR HGB CONC 29.5 (31.8-35.4); MEAN CORPUSCULAR VOLUME 87.7 fl (80.0-94.0); MONOCYTES # (AUTO) 0.5 K/uL (0.4-2.0); MONOCYTES % (AUTO) 4.8 (0-10); NEUTROPHILS # (AUTO) 7.5 K/ul (2.0-6.9); NEUTROPHILS % (AUTO) 70.8 % (42.2-75.2); PLATELET COUNT 280 10^3/uL (140-440); RDW COEFFICIENT OF VARIATION 17.7 % (11.6-14.8); RED BLOOD COUNT 3.33 10^6/ul (4.70-6.10); WHITE BLOOD COUNT 10.52 K/ul (4.2-10.2)
[2023-01-27 05:30] LABS: ALANINE AMINOTRANSFERASE 22.1 U/L (0-50); ALBUMIN 3.56 g/dL (3.5-5.0); ALKALINE PHOSPHATASE 129.2 U/L (56-119); ASPARTATE AMINO TRANSFERASE 23.1 U/L (17-59); BILIRUBIN,TOTAL 0.33 mg/dL (0.2-1.3); BLOOD UREA NITROGEN 40.3 mg/dL (9-20); CALCIUM 7.84 mg/dL (8.4-10.2); CARBON DIOXIDE 23.9 mmol/L (22-30.0); CHLORIDE 112.6 mmol/L (98-107); CREATININE 2.81 mg/dL (0.60-1.10); POTASSIUM 4.31 mmol/L (3.5-5.1); SODIUM 142.8 mmol/L (134.5-145); TOTAL PROTEIN 6.42 g/dL (6.3-8.2)
[2023-01-27] MEDS: PROTONIX PO SCH (05:38)
[2023-01-27] MEDS: HUMALOG SUBCUT PRN ×4 (05:58→20:14)
[2023-01-27] MEDS: LASIX IVP SCH (06:14)
[2023-01-27] MEDS: ROCEPHIN 1 GM/50 ML D5W 1 GM/50 ML BAG IV SCH (08:04)
[2023-01-27] MEDS: ASPIRIN EC PO SCH (08:59)
[2023-01-27] MEDS: FERROUS SULFATE PO SCH ×2 (09:00→20:13)
[2023-01-27] MEDS: NEURONTIN PO SCH ×2 (09:00→20:12)
[2023-01-27] MEDS: CYMBALTA PO SCH (09:01)
[2023-01-27] MEDS: PROSCAR PO SCH (09:01)
[2023-01-27] MEDS: LEVEMIR SUBCUT SCH ×2 (09:02→20:13)
[2023-01-27] MEDS: LOVENOX SUBCUT SCH (09:06)
--- NOTE | 2023-01-27 11:37 | PCM.PROG ---
Date/Time Seen Date Seen by Provider: 01/27/23 Time Seen by Provider: 08:40 Provider Provider: RERE VARGAS PA-C, [facility] Chief Complaint Chief Complaint: CHF, OTTONIEL Subjective Subjective: Patient states his breathing is not much better today. Swelling is better. Hgb improved after transfusion. Objective Appearance: Positive No Apparent Distress, Alert and Oriented x3 and Other (Wearing 2L nasal cannula, weaned to 1L while in the room. ) Chest/Lungs: Positive Symmetrical With Equal Breath Sounds and Clear to Auscultation Bilaterally; Negative Rales, Rhonci or Wheezes Heart: Positive RRR and Other (1-2+ pitting edema ene, improved from yesterday, wearing marcello hose ) GI/: Positive Soft, Nontender, Bowel Sounds Normal and No Distention Neurological: Positive Cranial Nerves Intact and Alert Vital Signs Vital Signs: Vital Signs: Last 24 Hours 01/26/23 14:00 01/26/23 18:00 01/26/23 12:53 Temperature 97.1 F L 97.7 F Temperature Source Temporal Artery Scan Temporal Artery Scan Pulse Rate 69 75 Respiratory Rate 17 20 Blood Pressure 169/59 H 165/74 H Blood Pressure Mean 95 104 Blood Pressure Location Right Radial Artery Blood Pressure Position Supine Sitting O2 Sat by Pulse Oximetry 97 97 Oxygen Delivery Method Nasal Cannula Room Air Oxygen Flow Rate 2 Weight Telemetry Type Remote Telemetry Telemetry Monitoring Continues Telemetry Heart Rate 72 EKG MN Interval 0.16 EKG QRS Interval 0.08 EKG QT Interval Telemetry Strip Reading SR 01/26/23 14:00 01/26/23 15:45 01/26/23 16:00 Temperature 97.5 F L 97.6 F Temperature Source Pulse Rate 70 68 Respiratory Rate 22 H 20 Blood Pressure 159/70 H 167/70 H Blood Pressure Mean 99 102 Blood Pressure Location Blood Pressure Position O2 Sat by Pulse Oximetry Oxygen Delivery Method Nasal Cannula Oxygen Flow Rate 2 Weight Telemetry Type Telemetry Monitoring Telemetry Heart Rate EKG MN Interval EKG QRS Interval EKG QT Interval Telemetry Strip Reading 01/26/23 17:00 01/26/23 18:00 01/26/23 19:05 Temperature 97.7 F 97.7 F 98.0 F Temperature Source Pulse Rate 71 75 78 Respiratory Rate 20 20 22 H Blood Pressure 159/70 H 165/70 H 185/72 H Blood Pressure Mean 99 101 109 Blood Pressure Location Blood Pressure Position O2 Sat by Pulse Oximetry Oxygen Delivery Method Oxygen Flow Rate Weight Telemetry Type Telemetry Monitoring Telemetry Heart Rate EKG MN Interval EKG QRS Interval EKG QT Interval Telemetry Strip Reading 01/26/23 19:00 01/26/23 19:37 01/27/23 02:00 Temperature 98.1 F Temperature Source Oral Pulse Rate 77 Respiratory Rate 18 Blood Pressure 141/71 H Blood Pressure Mean 94 Blood Pressure Location Right Radial Artery Blood Pressure Position Supine O2 Sat by Pulse Oximetry 97 95 Oxygen Delivery Method Nasal Cannula Nasal Cannula Oxygen Flow Rate 2 2 Weight Telemetry Type Remote Telemetry Telemetry Monitoring Continues Telemetry Heart Rate 78 EKG MN Interval 0.14 EKG QRS Interval 0.09 EKG QT Interval 0.37 Telemetry Strip Reading SR 01/26/23 20:00 01/26/23 21:40 01/27/23 01:00 Temperature 97.2 F L Temperature Source Oral Pulse Rate 82 Respiratory Rate 18 Blood Pressure 168/69 H Blood Pressure Mean 102 Blood Pressure Location Right Radial Artery Blood Pressure Position Supine O2 Sat by Pulse Oximetry 96 Oxygen Delivery Method Nasal Cannula Nasal Cannula Oxygen Flow Rate 2 2 Weight Telemetry Type Remote Telemetry Telemetry Monitoring Continues Telemetry Heart Rate 74 EKG MN Interval 0.15 EKG QRS Interval 0.10 EKG QT Interval 0.36 Telemetry Strip Reading SR no ectopy noted 01/27/23 04:33 01/27/23 05:07 01/27/23 05:12 Temperature 97.6 F Temperature Source Temporal Artery Scan Pulse Rate 75 Respiratory Rate 18 Blood Pressure 157/62 H Blood Pressure Mean 93 Blood Pressure Location Right Radial Artery Blood Pressure Position Sitting O2 Sat by Pulse Oximetry 93 L 96 Oxygen Delivery Method Nasal Cannula Nasal Cannula Oxygen Flow Rate 2 2 Weight 253 lb 8 oz Telemetry Type Telemetry Monitoring Telemetry Heart Rate EKG MN Interval EKG QRS Interval EKG QT Interval Telemetry Strip Reading 01/27/23 07:00 01/27/23 10:00 01/27/23 10:00 Temperature 96.5 F L Temperature Source Temporal Artery Scan Pulse Rate 72 Respiratory Rate 19 Blood Pressure 150/60 H Blood Pressure Mean 90 Blood Pressure Location Right Radial Artery Blood Pressure Position Sitting O2 Sat by Pulse Oximetry 95 96 Oxygen Delivery Method Nasal Cannula Nasal Cannula Oxygen Flow Rate 2 2 Weight Telemetry Type Remote Telemetry Telemetry Monitoring Continues Telemetry Heart Rate 72 EKG MN Interval 0.14 EKG QRS Interval 0.08 EKG QT Interval Telemetry Strip Reading SR Lab Results Lab Results: Lab Results: Last 24 Hours 01/27/23 01/26/23 01/26/23 04:50 20:35 13:25 WBC 10.52 H RBC 3.33 L Hgb 8.6 L 9.0 L Hct 29.2 L 29.8 L MCV 87.7 MCH 25.8 L MCHC 29.5 L RDW Coeff of Toby 17.7 H Plt Count 280 Immature Gran % (Auto) 0.2 Neut % (Auto) 70.8 Lymph % (Auto) 17.2 Carbon % (Auto) 4.8 Eos % (Auto) 6.6 Baso % (Auto) 0.4 Reticulocyte % (Auto) 1.30 Neut # (Auto) 7.5 H Lymph # (Auto) 1.8 Carbon # (Auto) 0.5 Eos # (Auto) 0.7 Baso # (Auto) 0.0 Immature Gran # (Auto) 0.0 Absolute Retic 0.0412 Retic Hgb Equivalent 26.5 Sodium 142.8 142.3 Potassium 4.31 4.25 Chloride 112.6 H 112.9 H Carbon Dioxide 23.9 24.1 Anion Gap 10.61 9.55 BUN 40.3 H 38.9 H Creatinine 2.81 H 2.73 H Estimated GFR (MDRD) 22.00 22.00 BUN/Creatinine Ratio 14.34 14.24 Glucose 165.0 H 202.6 H Calcium 7.84 L 8.06 L Iron 18.5 L TIBC 290 % Saturation 6 Ferritin 52.70 Total Bilirubin 0.33 AST 23.1 ALT 22.1 Alkaline Phosphatase 129.2 H Total Protein 6.42 Albumin 3.56 Globulin 2.86 Albumin/Globulin Ratio 1.24 Vitamin B12 465 Folate 4.09 Stool Occult Blood #2 Stool Occult Blood #3 Blood Type O POSITIVE Antibody Screen Negative Crossmatch ([facility]) See Detail 01/26/23 01/26/23 10:30 04:45 WBC RBC Hgb Hct MCV MCH MCHC RDW Coeff of Toby Plt Count Immature Gran % (Auto) Neut % (Auto) Lymph % (Auto) Carbon % (Auto) Eos % (Auto) Baso % (Auto) Reticulocyte % (Auto) Neut # (Auto) Lymph # (Auto) Carbon # (Auto) Eos # (Auto) Baso # (Auto) Immature Gran # (Auto) Absolute Retic Retic Hgb Equivalent Sodium Potassium Chloride Carbon Dioxide Anion Gap BUN Creatinine Estimated GFR (MDRD) BUN/Creatinine Ratio Glucose Calcium Iron TIBC % Saturation Ferritin Total Bilirubin AST ALT Alkaline Phosphatase Total Protein Albumin Globulin Albumin/Globulin Ratio Vitamin B12 Folate Stool Occult Blood #2 No specimen received Stool Occult Blood #3 No specimen received Blood Type O POSITIVE Antibody Screen Crossmatch ([facility]) Additional Comments Additional Comments: I have independently reviewed and interpreted the labs/EKGs/imaging ordered during this hospital stay. I have reviewed outside records that are available in our EMR that pertain to medical stay including imaging/notes/labs from previous visits. Active Medications Active Medications: Medications Generic Name Dose Route Start Last Admin Trade Name Freq PRN Reason Stop Dose Admin Acetaminophen 650 mg 01/25/23 12:54 Acetaminophen 325 Mg Tablet PO Q4H PRN Mild Pain Aspirin 81 mg 01/26/23 08:30 01/27/23 08:59 Aspirin 81 Mg Tablet. PO 81 mg DAILYWM DORCAS Administration Duloxetine HCl 30 mg 01/26/23 09:00 01/27/23 09:01 Duloxetine Hcl 30 Mg Capsule. PO 30 mg DAILY DORCAS Administration Enoxaparin Sodium 30 mg 01/26/23 09:00 01/27/23 09:06 Enoxaparin Sodium 30 Mg/0.3 Ml Syr SUBCUT Not Given DAILY DORCAS Ferrous Sulfate 324 mg 01/25/23 21:00 01/27/23 09:00 Ferrous Sulfate 324 Mg Tablet. PO 324 mg BID DORCAS Administration Finasteride 5 mg 01/26/23 09:00 01/27/23 09:01 Finasteride 5 Mg Tablet PO 5 mg DAILY DORCAS Administration Furosemide 40 mg 01/25/23 21:00 01/27/23 06:14 Furosemide Inj 40 Mg/4 Ml Vial IVP 40 mg BIDAC DORCAS Administration Gabapentin 600 mg 01/26/23 09:00 01/27/23 09:00 Gabapentin 300 Mg Capsule PO 600 mg DAILY DORCAS Administration Gabapentin 1,200 mg 01/25/23 21:00 01/26/23 20:19 Gabapentin 300 Mg Capsule PO 1,200 mg BEDTIME DORCAS Administration CEFTRIAXONE/D5W 1 GM PREMIX 1 gm in 50 mls @ 75 mls/hr 01/25/23 13:50 01/27/23 08:04 Rocephin 1 Gm/50 Ml D5w IV 01/28/23 13:49 75 mls/hr DAILY DORCAS Administration Insulin Detemir 15 unit 01/25/23 21:00 01/27/23 09:02 Insulin Detemir 100 Units/Ml SUBCUT 15 unit BID DORCAS Administration Insulin Human Lispro 0 unit 01/25/23 13:47 01/27/23 05:58 Insulin Lispro 100 Unit/Ml (3 Ml) Vial SUBCUT 3 unit PRN PRN Administration Hyperglycemia Protocol Ondansetron HCl 4 mg 01/25/23 12:54 Ondansetron Hcl/Pf 4 Mg/2 Ml Sdv IVP Q6H PRN Nausea / Vomiting Pantoprazole Sodium 40 mg 01/26/23 06:30 01/27/23 05:38 Pantoprazole Sodium 40 Mg Tablet.Dr PO 40 mg QDAC DORCAS Administration Sodium Chloride 1 syr 01/25/23 10:51 01/27/23 06:15 0.9% Sodium Chloride 10 Ml Disp.Syrin IVF 1 syr PRN PRN Administration To flush IV Tamsulosin HCl 0.8 mg 01/25/23 21:00 01/26/23 20:19 Tamsulosin Hcl 0.4 Mg Cap.Er.24h PO 0.8 mg BEDTIME DORCAS Administration Plan Plan: 1. Acute heart failure with preserved ejection fraction exacerbation - Will transition to PO lasix today. Echo 6 months ago showed normal EF and diastolic function. Cardiac/low sodium diet. Marcello hose. Elevate legs. PT/OT. Soni, I&Os. Daily weights. BNP 1170. CT chest w/o today due to persistent dyspnea. 2. UTI in setting of straight cathing due to E coli - Rocephin ordered, urine culture showing e coli. Shafer placed. 3. OTTONIEL, stage I in setting of heart failure - Patient appears fluid overloaded, will diurese and carefully monitor renal function and urine output. 4. DMT2, insulin dependent - Continue home long acting, SS ordered. Accuchecks achs. Hold metformin. 5. Hypertension - Continue home meds. Hold losartan. 6. BPH - Continue home meds 7. GERD - Continue home meds 8. Acute on chronic anemia with iron deficiency - Transfused 1U 01/26, hgb improved. Occult stool negative. Iron low. Continue iron tabs. DVT Prophylaxis: Lovenox Dispo: Spoke with patient today regarding evaluation for swingbed. He is deconditioned, has had falls at home, would benefit. He is agreeable. Will do swingbed eval tomorrow when pt/ot available. Review Statement Review Statement: I have personally discussed and reviewed the patient's visit/currently labs/imaging/decision making with Dr. Woods, my supervising attending. Greater that 50 minutes spent with patient, 50% of the time spent with this patient was devoted to counseling and coordination of care.
--- NOTE | 2023-01-27 13:12 | CT ---
EXAM: CT CHEST WITHOUT CONTRAST HISTORY: Dyspnea TECHNIQUE: CT acquisition of the chest without IV contrast administration. CT dose reduction techniq ues performed: Yes. Coronal and sagittal reconstructions were performed. COMPARISON: CT chest 10/02/2020 FINDINGS: Heart size normal. Coronary artery calcific atherosclerosis. Aorta normal caliber. A few prominent lymph nodes in the mediastinum are not significant changed. Small bilateral pleural effusions. Air space consolidations in the right lower, left lower and middle lobes suspicious for pneumonia. Resp iratory motion. Otherwise limits detailed examination of the lung parenchyma. No acute findings in the bones or upper abdomen. Complex bilateral renal cysts again noted. Impression: Air space consolidations in the right lower, left lower, and right middle lobe suspicious for pneumon ia. [address] scans are performed using dose optimization techniques as appropriate to the performed exam an d include at least one of the following: Automated exposure control, adjustment of the mA and/or kV according t o size, and the use of iterative reconstruction technique.
[2023-01-27] MEDS: ZITHROMAX PO SCH (14:38)
[2023-01-27] MEDS: FLOMAX PO SCH (20:13)
[2023-01-28 05:19] LABS: BASOPHILS # (AUTO) 0.1 K/uL (0-0.2); BASOPHILS % (AUTO) 0.5 % (0.0-3.0); EOSINOPHILS # (AUTO) 2.5 K/ul (0.0-0.7); EOSINOPHILS % (AUTO) 20.6 % (0.0-7.0); HEMATOCRIT 27.7 % (42.0-52.0); HEMOGLOBIN 8.3 g/dl (14.0-18.0); IMMATURE GRANULOCYTE # (AUTO) 0.1 (0.0-1.0); IMMATURE GRANULOCYTE % (AUTO) 0.4 % (0.0-5.0); LYMPHOCYTES # (AUTO) 2.2 K/uL (0.60-3.4); LYMPHOCYTES % (AUTO) 18.5 (10.0-50.0); MEAN CORPUSCULAR HEMOGLOBIN 25.9 pg (27.0-31.0); MEAN CORPUSCULAR VOLUME 86.3 fl (80.0-94.0); MONOCYTES # (AUTO) 0.7 K/uL (0.4-2.0); MONOCYTES % (AUTO) 5.5 (0-10); NEUTROPHILS # (AUTO) 6.5 K/ul (2.0-6.9); NEUTROPHILS % (AUTO) 54.5 % (42.2-75.2); PLATELET COUNT 286 10^3/uL (140-440); RDW COEFFICIENT OF VARIATION 17.2 % (11.6-14.8); RED BLOOD COUNT 3.21 10^6/ul (4.70-6.10); WHITE BLOOD COUNT 11.92 K/ul (4.2-10.2)
[2023-01-28 05:32] LABS: ALANINE AMINOTRANSFERASE 23.9 U/L (0-50); ALBUMIN 3.43 g/dL (3.5-5.0); ALKALINE PHOSPHATASE 137.5 U/L (56-119); BILIRUBIN,TOTAL 0.26 mg/dL (0.2-1.3); CALCIUM 8.03 mg/dL (8.4-10.2); CARBON DIOXIDE 26.3 mmol/L (22-30.0); CREATININE 3.3 mg/dL (0.60-1.10); GLUCOSE 109.2 mg/dL (74-106); POTASSIUM 4.09 mmol/L (3.5-5.1); SODIUM 141.7 mmol/L (134.5-145); TOTAL PROTEIN 6.34 g/dL (6.3-8.2)
[2023-01-28] MEDS: PROTONIX PO SCH (06:03)
[2023-01-28] MEDS: LASIX TAB PO SCH (06:04)
[2023-01-28] MEDS: ZITHROMAX PO SCH (08:56)
[2023-01-28] MEDS: NEURONTIN PO SCH ×2 (08:56→20:56)
[2023-01-28] MEDS: PROSCAR PO SCH (08:56)
[2023-01-28] MEDS: FERROUS SULFATE PO SCH ×2 (08:57→20:57)
[2023-01-28] MEDS: ROCEPHIN 1 GM/50 ML D5W 1 GM/50 ML BAG IV SCH (08:57)
[2023-01-28] MEDS: CYMBALTA PO SCH (08:57)
[2023-01-28] MEDS: LEVEMIR SUBCUT SCH ×2 (08:58→20:58)
--- NOTE | 2023-01-28 11:39 | RS.OTINEVL ---
Subjective Patient information Date of Evaluation: 01/28/23 Date of Arrival on Unit: 01/25/23 Admitted From:: Home Diagnosis: Acute Kidney Injury PRECAUTIONS: SOA with exertion. Usual Living Arrangement: With Spouse Living Arrangement Comments: at home with spouse Home Environment: House and Stairs (many) Medical History: Hypertension and Diabetes Medical History Comments:: BPH, GERD, UTI, ANEMIA, CHF Medications: Refer to chart Subjective Information/ Patient Comments:: "I get SOA with walking." "I wasn't using anything to walk at home but I had falls." Level of function Prior to this admission, the patient could do the following:: Independent Selfcare, Independent Ambulation and Drive Current Level of Function: Partially Dependent Comments: Pt is weak and SOA with functional transfers. Pt was not using Assistive devices at home and had several falls. Pt reports he had 2 falls before he came to the hospital. Current Equipment Used at Home: CANE, RWX, ELECTRIC SCOOTER, OXYGEN Pain Assessment Pain Pain Score: 0 Interventions Objective Patient Orientation: Person and Situation Current Interventions: IV's, Oxygen, Telemetry and Shafer Catheter Observation: Pt has edema of all extremities. Pt becomes SOA with exertion. Pt appears weak. Pt has a Right fx of humerus with weight restriction. Interventions ROM Right Upper Extremity AROM: Slight limitation Left Upper Extremity AROM: WFL's Strength Right Upper Extremity: Severe Weakness Left Upper Extremity: Mild Weakness Comments:: Pt cannot remember how long it has been since he fractured the right humeru Sensation Right Upper Extremity: Intact/Normal Left Upper Extremity: Intact/Normal Balance Sitting Balance Static Sitting Balance: Good Dynamic Sitting Balance: Good Standing Balance Static Standing Balance: Poor Dynamic Standing Balance: Poor ADL Skills Self Feeding Self Feeding: Independent Grooming Grooming: Min Assist Grooming Set-up: Sitting Bathing Bathing UE: Min Assist Bathing LE: Mod Assist Bathing Set-up: Shower Dressing Dressing UE: Mod Assist Dressing LE: Max Assist Toilet Management Toilet Hygiene: Min Assist Toilet Clothing Management: Mod Assist Functional Mobility Transfers Sit to Stand: Min Assist and 1 person assist Stand to Sit: Min Assist and 1 person assist Stand Pivot Transfers: Min Assist and 1 person assist Ambulation Weight Bearing Status: FWB Assistive Device Used: Small Base Quad Cane Assistance needed with Ambulation: Min Assist Comments:: Pt requires AD with education to ambulate more safely. Pt requires Safety Awareness Safety Awareness: Poor KOURTNEY INDEX SCORE: . Additional Treatment Performed Time with patient Length of Evaluation: 20 Total treatment time: 21 Activities What types of things do you enjoy doing? Any Hobbies?: TV Patient Interests:: Watching Television and Visiting/Socializing Patient Education Patient Education: Education of diagnosis, Home Safety, Activity Modification and Education of Plan of Care Teaching Recipient: Patient and Family Teaching Methods: Discussion and Demonstration Assessment Problem List:: Decreased level of function, Requires training/education, Decreased safety/Risk of falls, Weakness and Cognitive status limits abilities Rehab Potential: Good Further Therapy Indicated?: Yes Candidate for Swing Bed for Therapy Services?: yes Comments: Pt is not a good historian. Evaluation Complexity: HISTORY: Medium, EXAM OF BODY SYSTEMS: Medium and CLINICAL DECISION MAKING: Medium Patient's Goal(s): To be able to go home and be able to move around in his home. Short Term Goals Goals GOAL 1: Pt to be CGA with toilet transfers to reduce falls in the home. Goal to be met by: 02/01/23 GOAL 2: Pt to increase dyn. std. bal to Fair + to increase safety in the home. Goal to be met by: 02/01/23 GOAL 3: Pt to increase BUE strength for increasing independence of ADL's. Goal to be met by: 02/01/23 GOAL 4: Pt to increase his standing time to 10 minutes to complete ADLs. Goal to be met by: 02/01/23 Airport Guide Goals GOAL 1: Pt to increase independence of ADLs to Independent. Goal to be met by: 02/04/23 GOAL 2: Pt to increase BUE strength to 4+/5. Goal to be met by: 02/04/23 GOAL 3: Pt to increase dyn. std. bal. to Good-. Goal to be met by: 02/04/23 Plan Plan of Care: Therapeutic EX, Neuromuscular Re-Educ, Therapeutic Activity and Self-Care/Home Management Frequency of Treatment: 1-2 X day, as tolerated Duration of Treatment: 1 Week Anticipated Discharge Destination: Home Treatment Diagnosis (ICD 10 Codes): Weakness R53.1, RUE shoulder stiffness M25.61 Has the Physician been added for Co-signature?: Yes
--- NOTE | 2023-01-28 11:58 | RS.PTINEVL ---
Subjective Patient information Date of Evaluation: 01/28/23 Date of Arrival on Unit: 01/25/23 Admitted From:: Home Diagnosis: acute heart failure, h/o falls, acute kidney injury, UTI Usual Living Arrangement: With Spouse Living Arrangement Comments: lives with Home Environment: House and Stairs (few) (they are putting in electric lift on his steps.) Medical History: Hypertension, Diabetes, CHF, Arthritis and Cancer (prostate CA) Medical History Comments:: R humerus fracture, GERD, BPH, iron deficiency LATEX ALLERGY?: No Medications: see chart Subjective Information/ Patient Comments:: pt states that he fractured his R humerus after a fall on 11/29/22. He reports he was placed in splint and told not to put weight on it. pt reports that his has helped him with ADL's etc since that time. pt also reports he has fallen atleast 2x since then. Level of function Prior to this admission, the patient could do the following:: Independent Selfcare, Independent Ambulation and Drive Abilities prior to this admission: prior to 11/29/22 pt was independent with ADL's and ambulation occasionally using a cane. Since 11/29/22 pt has used a w/c occasionally and has had to help him with his ADL's Current Level of Function: Partially Dependent Current Equipment Used at Home: CANE, RWX, w/c, OXYGEN Interventions Objective Patient Orientation: Person, Place and Situation Current Interventions: IV's, Oxygen (2 liters), Telemetry and Shafer Catheter Observation: Pitting edema BLE Range of Motion ROM Right Upper Extremity AROM: Slight limitation (R shld ) Left Upper Extremity AROM: WFL's Right Lower Extremity AROM: WFL's Left Lower Extremity AROM: WFL's Muscle Strength Muscle Strength Right Upper Extremity: Mild Weakness (n/t due to fx ) Left Upper Extremity: Mild Weakness (grossly 4/5 ) Right Lower Extremity: Mild Weakness (hip flex 4-/5, knee flex/ext 4/5, ankle DF/PF 4/5 ) Left Lower Extremity: Mild Weakness (hip flex 4-/5, knee flex/ext 4/5, ankle DF/PF 4/5 ) Sensation Sensation Right Upper Extremity: Intact/Normal Left Upper Extremity: Intact/Normal Right Lower Extremity: Intact/Normal Left Lower Extremity: Intact/Normal Palpation Palpation Findings: None/Normal Balance Sitting Balance and Reactions Static Sitting Balance: Fair (fair+) Dynamic Sitting Balance: Fair Standing Balance and Reactions Static Standing Balance: Poor Dynamic Standing Balance: Poor Standing Equilibrium Reactions: Delayed Left and Delayed Right Standing Protective Reactions: Delayed Left and Delayed Right Functional Mobility Bed Mobility Comments:: pt seen sitting up in recliner Transfers Sit to Stand: Min Assist and 2 person assist Stand to Sit: Min Assist and 1 person assist Safety Awareness Safety Awareness: Fair KOURTNEY INDEX SCORE: n/a Ambulation Ambulation Weight Bearing Status: NWB (RUE ) Assistive Device Used: Small Base Quad Cane Orthotic/Prosthetic Device: Yes (splint R upper arm) Distance: 80ft Assistance needed with Ambulation: Min Assist and 1 person assist (+1 for O2.) Gait Deviations: Wide Based gait, Forward posture, Short stride and Deviates from path Ambulation Comments: pt requires cues for placement of quad cane as well as sequencing. Factors Affecting Ambulation: WB Status (NWB RUE), Decreased Balance, Breathing/O2 Saturation, Weakness, Decreased Coordination, Decreased ROM, Decreased Safety and Limited Endurance Treatment time Time with patient Length of Evaluation: 19 Total treatment time: 27 Patient Education Education Patient Education: Activity Modification and Education of Plan of Care Teaching Recipient: Patient Teaching Methods: Discussion Comments: Called and left message with ortho MD regarding RUE restrictions/weight bearing Assessment Assessment Problem List:: Decreased level of function, Requires training/education, Decreased safety/Risk of falls and Weakness Rehab Potential: Good Further Therapy Indicated?: Yes Candidate for Swing Bed for Therapy Services?: pt may be a candidate for swing bed for therapy Comments: After completing eval and calling MD for clarification regarding weight bearing RUE Shalom Gonzalez APRN states that his xray showed that his humerus fx is displaced and they are placing a call to ortho. Evaluation Complexity: HISTORY: Medium, EXAM OF BODY SYSTEMS: Medium, CLINICAL PRESENTATION: Medium and CLINICAL DECISION MAKING: Medium Patient's Goal(s): Get stronger and get back home. Short Term Goals GOAL #1: pt demonstrate rolling and scooting in bed with CGA. Goal to be met by: 01/30/23 GOAL #2: Transfer sup to/from sit min x 1 Goal to be met by: 01/30/23 GOAL #3: Transfer sit to/from stand min to CGA x 1 Goal to be met by: 01/30/23 GOAL #4: pt amb with hemiwalker or quad cane nwb RUE 100ft min x 1 Goal to be met by: 01/30/23 GOAL #5: Improve BLE strength 4 to 4+/5 Goal to be met by: 01/30/23 Glaze Grinder Goals GOAL #1: pt transfer sup to/from sit to/from stand CGA Goal to be met by: 02/01/23 GOAL #2: pt amb with AAD NWB RUE functional household distances with CGA Goal to be met by: 02/01/23 GOAL #3: Dyn stand balance fair Goal to be met by: 02/01/23 Plan Plan of Care: Therapeutic EX and Therapeutic Activity Other:: gait training Frequency of Treatment: 1-2 X day, as tolerated Duration of Treatment: 5 days Anticipated Discharge Destination: undetermined Treatment Diagnosis (ICD 10 Codes): difficulty walking R26.2 impaired balance R 26.81 weakness M62.81 falls R 29.6 fx R humerus Has the Physician been added for Co-signature?: Yes
[2023-01-28] MEDS: COLACE PO PRN ×2 (12:06→20:57)
[2023-01-28] MEDS: HUMALOG SUBCUT PRN ×3 (12:07→21:03)
--- NOTE | 2023-01-28 12:26 | PCM.PROG ---
Date/Time Seen Date Seen by Provider: 01/28/23 Time Seen by Provider: 09:30 Provider Provider: KOKI MALIK, [facility] Chief Complaint Chief Complaint: CHF, OTTONIEL Subjective Subjective: No fever or events overnight. Requiring 1L of oxygen. Swelling improved today. Ambulating with PT/OT. Objective Appearance: Positive Well-nourished, No Apparent Distress, Alert and Oriented x3 and Obese Chest/Lungs: Positive Symmetrical With Equal Breath Sounds, Clear to Auscultation Bilaterally and Good Air Movement all 4 Lung [facility]: Positive RRR and Pulses Normal GI/: Positive Soft, Nontender, Bowel Sounds Normal, No Distention and No Organomegaly Musculoskeletal: Positive Other (+2 pitting edema noted bilaterally, improper fitting CONNIE hose) Neurological: Positive Alert and Oriented Vital Signs Vital Signs: Vital Signs: Last 24 Hours 01/27/23 13:00 01/27/23 14:00 01/27/23 18:00 Temperature 96.5 F L 96.5 F L Temperature Source Temporal Artery Scan Temporal Artery Scan Pulse Rate 72 75 Pulse Rate [Apical] Respiratory Rate 20 17 Blood Pressure 150/71 H 148/69 H Blood Pressure Mean 97 95 Blood Pressure Location Right Radial Artery Right Radial Artery Blood Pressure Position Supine Supine O2 Sat by Pulse Oximetry 97 98 Oxygen Delivery Method Nasal Cannula Nasal Cannula Oxygen Flow Rate 2 1 Height Weight Telemetry Type Remote Telemetry Telemetry Monitoring Continues Telemetry Heart Rate 70 EKG ME Interval 0.20 EKG QRS Interval 0.08 EKG QT Interval Telemetry Strip Reading SR 01/27/23 14:00 01/27/23 20:00 01/27/23 19:00 Temperature Temperature Source Pulse Rate Pulse Rate [Apical] Respiratory Rate Blood Pressure Blood Pressure Mean Blood Pressure Location Blood Pressure Position O2 Sat by Pulse Oximetry 93 L 92 L Oxygen Delivery Method Room Air Nasal Cannula Oxygen Flow Rate 2 Height Weight Telemetry Type Remote Telemetry Telemetry Monitoring Continues Telemetry Heart Rate 90 EKG ME Interval 0.14 EKG QRS Interval 0.06 EKG QT Interval Telemetry Strip Reading NSR 01/27/23 20:00 01/27/23 21:14 01/28/23 01:51 Temperature 98.2 F 97.2 F L Temperature Source Temporal Artery Scan Temporal Artery Scan Pulse Rate 87 68 Pulse Rate [Apical] Respiratory Rate 20 18 Blood Pressure 156/71 H 139/62 Blood Pressure Mean 99 87 Blood Pressure Location Right Radial Artery Right Radial Artery Blood Pressure Position Supine Supine O2 Sat by Pulse Oximetry 93 L 93 L Oxygen Delivery Method Nasal Cannula Nasal Cannula Nasal Cannula Oxygen Flow Rate 2 2 2 Height Weight Telemetry Type Telemetry Monitoring Telemetry Heart Rate EKG ME Interval EKG QRS Interval EKG QT Interval Telemetry Strip Reading 01/28/23 01:00 01/28/23 05:09 01/28/23 05:24 Temperature 97.0 F L Temperature Source Temporal Artery Scan Pulse Rate 67 Pulse Rate [Apical] Respiratory Rate 16 Blood Pressure 137/71 Blood Pressure Mean 93 Blood Pressure Location Right Radial Artery Blood Pressure Position Supine O2 Sat by Pulse Oximetry 94 L 96 Oxygen Delivery Method Nasal Cannula Nasal Cannula Oxygen Flow Rate 2 2 Height Weight Telemetry Type Remote Telemetry Telemetry Monitoring Continues Telemetry Heart Rate 73 EKG ME Interval 0.12 EKG QRS Interval 0.08 EKG QT Interval 0.37 Telemetry Strip Reading SR 01/28/23 06:00 01/28/23 10:00 01/28/23 08:13 Temperature 96.9 F L Temperature Source Temporal Artery Scan Pulse Rate 76 Pulse Rate [Apical] Respiratory Rate 16 Blood Pressure 145/62 H Blood Pressure Mean 89 Blood Pressure Location Right Radial Artery Blood Pressure Position Sitting O2 Sat by Pulse Oximetry 97 Oxygen Delivery Method Nasal Cannula Oxygen Flow Rate 1 Height 5 ft 7 in Weight 256 lb 256 lb Telemetry Type Telemetry Monitoring Telemetry Heart Rate EKG ME Interval EKG QRS Interval EKG QT Interval Telemetry Strip Reading 01/28/23 07:00 01/28/23 08:00 01/28/23 09:28 Temperature Temperature Source Pulse Rate Pulse Rate [Apical] 66 Respiratory Rate 16 Blood Pressure Blood Pressure Mean Blood Pressure Location Blood Pressure Position O2 Sat by Pulse Oximetry Oxygen Delivery Method Nasal Cannula Nasal Cannula Oxygen Flow Rate 2 2 Height Weight Telemetry Type Remote Telemetry Telemetry Monitoring Continues Telemetry Heart Rate 68 EKG ME Interval 0.17 EKG QRS Interval 0.08 EKG QT Interval Telemetry Strip Reading SR Lab Results Lab Results: Lab Results: Last 24 Hours 01/28/23 05:00 WBC 11.92 H RBC 3.21 L Hgb 8.3 L Hct 27.7 L MCV 86.3 MCH 25.9 L MCHC 30.0 L RDW Coeff of Toby 17.2 H Plt Count 286 Immature Gran % (Auto) 0.4 Neut % (Auto) 54.5 Lymph % (Auto) 18.5 [place] % (Auto) 5.5 Eos % (Auto) 20.6 H Baso % (Auto) 0.5 Neut # (Auto) 6.5 Lymph # (Auto) 2.2 [place] # (Auto) 0.7 Eos # (Auto) 2.5 H Baso # (Auto) 0.1 Immature Gran # (Auto) 0.1 Sodium 141.7 Potassium 4.09 Chloride 111.0 H Carbon Dioxide 26.3 Anion Gap 8.49 BUN 43.0 H Creatinine 3.30 H Estimated GFR (MDRD) 18.00 BUN/Creatinine Ratio 13.03 Glucose 109.2 H Calcium 8.03 L Total Bilirubin 0.26 AST 24.0 ALT 23.9 Alkaline Phosphatase 137.5 H Total Protein 6.34 Albumin 3.43 L Globulin 2.91 Albumin/Globulin Ratio 1.17 Procalcitonin 0.09 H Additional Comments Additional Comments: I have independently reviewed and interpreted the labs/EKGs/imaging ordered during this hospital stay. I have reviewed outside records that are available in our EMR that pertain to medical stay including imaging/notes/labs from previous visits. Active Medications Active Medications: Medications Generic Name Dose Route Start Last Admin Trade Name Freq PRN Reason Stop Dose Admin Acetaminophen 650 mg 01/25/23 12:54 01/27/23 19:55 Acetaminophen 325 Mg Tablet PO 650 mg Q4H PRN Administration Mild Pain Aspirin 81 mg 01/26/23 08:30 01/27/23 08:59 Aspirin 81 Mg Tablet. PO 81 mg DAILYWM DORCAS Administration Azithromycin 500 mg 01/27/23 14:00 01/28/23 08:56 Azithromycin 250 Mg Tablet PO 01/30/23 13:59 500 mg DAILY DORCAS Administration Docusate Sodium 100 mg 01/28/23 11:38 01/28/23 12:06 Docusate Sodium 100 Mg Capsule PO 100 mg BID PRN Administration Constipation Duloxetine HCl 30 mg 01/26/23 09:00 01/28/23 08:57 Duloxetine Hcl 30 Mg Capsule. PO 30 mg DAILY DORCAS Administration Ferrous Sulfate 324 mg 01/25/23 21:00 01/28/23 08:57 Ferrous Sulfate 324 Mg Tablet. PO 324 mg BID DORCAS Administration Finasteride 5 mg 01/26/23 09:00 01/28/23 08:56 Finasteride 5 Mg Tablet PO 5 mg DAILY DORCAS Administration Furosemide 40 mg 01/28/23 06:30 01/28/23 06:04 Furosemide 40 Mg Tablet PO 40 mg QDAC DORCAS Administration Gabapentin 600 mg 01/26/23 09:00 01/28/23 08:56 Gabapentin 300 Mg Capsule PO 600 mg DAILY DORCAS Administration Gabapentin 1,200 mg 01/25/23 21:00 01/27/23 20:12 Gabapentin 300 Mg Capsule PO 1,200 mg BEDTIME DORCAS Administration CEFTRIAXONE/D5W 1 GM PREMIX 1 gm in 50 mls @ 75 mls/hr 01/25/23 13:50 01/28/23 08:57 Rocephin 1 Gm/50 Ml D5w IV 01/30/23 13:49 75 mls/hr DAILY DORCAS Administration Insulin Detemir 15 unit 01/25/23 21:00 01/28/23 08:58 Insulin Detemir 100 Units/Ml SUBCUT 15 unit BID DORCAS Administration Insulin Human Lispro 0 unit 01/25/23 13:47 01/28/23 12:07 Insulin Lispro 100 Unit/Ml (3 Ml) Vial SUBCUT 4 unit PRN PRN Administration Hyperglycemia Protocol Ondansetron HCl 4 mg 01/25/23 12:54 Ondansetron Hcl/Pf 4 Mg/2 Ml Sdv IVP Q6H PRN Nausea / Vomiting Pantoprazole Sodium 40 mg 01/26/23 06:30 01/28/23 06:03 Pantoprazole Sodium 40 Mg Tablet.Dr PO 40 mg QDAC DORCAS Administration Sodium Chloride 1 syr 01/25/23 10:51 01/28/23 06:05 0.9% Sodium Chloride 10 Ml Disp.Syrin IVF 1 syr PRN PRN Administration To flush IV Tamsulosin HCl 0.8 mg 01/25/23 21:00 01/27/23 20:13 Tamsulosin Hcl 0.4 Mg Cap.Er.24h PO 0.8 mg BEDTIME DORCAS Administration Plan Plan: 1. Acute heart failure with preserved ejection fraction exacerbation - Transitioned to PO lasix yesterday. Diuresing well. Echo 6 months ago showed normal EF and diastolic function. Cardiac/low sodium diet. Connie hose. Elevate legs. PT/OT. Soni, I&Os. Daily weights. 2. UTI in setting of straight cathing due to E coli - Rocephin ordered, urine culture showing e coli. Arredondo placed. 3. OTTONIEL, stage I in setting of heart failure - worsening due to diuresis and likely worsening prostate cancer, repeat labs in am 4. Community Acquired Pneumonia - CT scan showing pneumonia, consistent with SOB and WBC count, rocephin on board for UTI 5. R Humerus fracture - wearing brace for this, unknown how long patient supposed to wear, did not follow-up with ortho, repeating imaging to assess healing, PT contacting ortho for instructions on current splinting 5. DMT2, insulin dependent - Continue home long acting, SS ordered. Accuchecks achs. Hold metformin. 5. Hypertension - Continue home meds. Hold losartan. 6. BPH - Continue home meds 7. GERD - Continue home meds 8. Acute on chronic anemia with iron deficiency - Transfused 1U 01/26, hgb improved initially and trending further down. Had hematuria yesterday following arredondo insertion but improved overnight. Occult stool negative. Iron low. Continue iron tabs. Patient is a great candidate for swingbed program. PT/OT dara completed today. Reassessing renal function and hemoglobin in am. Plan to admit to swingbed tomorrow or Saturday. Review Statement Review Statement: I have personally discussed and reviewed the patient's visit/currently labs/imaging/decision making with Dr. Woods, my supervising attending. Greater that 50 minutes spent with patient, 50% of the time spent with this patient was devoted to counseling and coordination of care.
--- NOTE | 2023-01-28 13:25 | DI ---
EXAM: RIGHT HUMERUS TWO-VIEW HISTORY: Fracture. COMPARISON: None. FINDINGS/IMPRESSION: Comminuted, displaced and angulated mid humeral shaft fracture. There is peripheral callous formation but persistent fracture lucencies. Correlation with previous im aging is recommended. Severe generalized osteopenia. Degenerative changes to the shoulder and elbow.
[2023-01-28] MEDS ORDERED: ALBUTEROL 0.083% NEB NEB PRN (15:23)
[2023-01-28] MEDS: SOLU-MEDROL 125 MG IVP SCH ×2 (16:56→20:57)
[2023-01-28] MEDS: DUONEB NEB SCH ×2 (18:33→21:23)
[2023-01-28] MEDS: FLOMAX PO SCH (20:57)
[2023-01-28] MEDS: ZOFRAN 4 MG/2 ML IVP PRN (21:08)
[2023-01-29] MEDS: DUONEB NEB SCH ×6 (00:30→21:13)
[2023-01-29 04:58] LABS: BASOPHILS % (AUTO) 0.1 % (0.0-3.0); HEMATOCRIT 30.5 % (42.0-52.0); HEMOGLOBIN 9.1 g/dl (14.0-18.0); IMMATURE GRANULOCYTE # (AUTO) 0.1 (0.0-1.0); IMMATURE GRANULOCYTE % (AUTO) 0.8 % (0.0-5.0); LYMPHOCYTES # (AUTO) 0.3 K/uL (0.60-3.4); MEAN CORPUSCULAR HEMOGLOBIN 25.7 pg (27.0-31.0); MEAN CORPUSCULAR HGB CONC 29.8 (31.8-35.4); MEAN CORPUSCULAR VOLUME 86.2 fl (80.0-94.0); MONOCYTES % (AUTO) 0.5 (0-10); NEUTROPHILS # (AUTO) 7.9 K/ul (2.0-6.9); NEUTROPHILS % (AUTO) 94.6 % (42.2-75.2); PLATELET COUNT 300 10^3/uL (140-440); RDW COEFFICIENT OF VARIATION 16.9 % (11.6-14.8); RED BLOOD COUNT 3.54 10^6/ul (4.70-6.10); WHITE BLOOD COUNT 8.31 K/ul (4.2-10.2)
[2023-01-29 05:12] LABS: ALANINE AMINOTRANSFERASE 30.8 U/L (0-50); ALBUMIN 3.79 g/dL (3.5-5.0); ALKALINE PHOSPHATASE 160.2 U/L (56-119); ASPARTATE AMINO TRANSFERASE 38.9 U/L (17-59); BILIRUBIN,TOTAL 0.29 mg/dL (0.2-1.3); BLOOD UREA NITROGEN 49.1 mg/dL (9-20); CALCIUM 8.51 mg/dL (8.4-10.2); CHLORIDE 107.9 mmol/L (98-107); CREATININE 3.46 mg/dL (0.60-1.10); GLUCOSE 370.4 mg/dL (74-106); POTASSIUM 5.27 mmol/L (3.5-5.1); TOTAL PROTEIN 6.83 g/dL (6.3-8.2)
[2023-01-29] MEDS: SOLU-MEDROL 125 MG IVP SCH ×3 (05:26→21:41)
[2023-01-29] MEDS: LASIX TAB PO SCH (05:46)
[2023-01-29] MEDS: PROTONIX PO SCH (05:47)
[2023-01-29] MEDS: HUMALOG SUBCUT PRN ×4 (05:51→20:32)
[2023-01-29] MEDS: ROCEPHIN 1 GM/50 ML D5W 1 GM/50 ML BAG IV SCH (09:19)
[2023-01-29] MEDS: ZOFRAN 4 MG/2 ML IVP PRN (09:19)
[2023-01-29] MEDS: COLACE PO PRN (09:20)
[2023-01-29] MEDS: MIRALAX PO SCH (09:20)
[2023-01-29] MEDS: LEVEMIR SUBCUT SCH ×2 (09:20→20:33)
--- NOTE | 2023-01-29 10:55 | PCM.PROG ---
Date/Time Seen Date Seen by Provider: 01/29/23 Provider [facility] Chief Complaint Chief Complaint: CHF, OTTONIEL Subjective Subjective: No fevers overnight. Baseline O2. Tired. Didn't sleep well last night. Complaints of needing to have BM and generalized belly pain. Objective Appearance: Positive Well-nourished, No Apparent Distress, Alert and Oriented x3 and Obese Chest/Lungs: Positive Symmetrical With Equal Breath Sounds, Rhonci (bilateral lung bases) and Good Air Movement all 4 Lung [facility]: Positive RRR and Pulses Normal GI/: Positive Soft, Nontender, Bowel Sounds Normal and No Organomegaly Musculoskeletal: Positive Other (splint to R upper arm due to humerus fracture) Neurological: Positive Sensation Intact, Motor intact, Reflexes Intact, Alert, Oriented and Muscle Strength 5/5 in Upper and Lower Extremities Bilaterally Vital Signs Vital Signs: Vital Signs: Last 24 Hours 01/28/23 14:00 01/28/23 17:52 01/28/23 13:00 Temperature 97 F L 98.1 F Temperature Source Temporal Artery Scan Oral Pulse Rate 76 80 Respiratory Rate 20 20 Blood Pressure 164/68 H 170/69 H Blood Pressure Mean 100 102 Blood Pressure Location Right Radial Artery Right Radial Artery Blood Pressure Position Sitting Sitting O2 Sat by Pulse Oximetry 95 96 Oxygen Delivery Method Nasal Cannula Nasal Cannula Oxygen Flow Rate 1 1 Weight Telemetry Type Remote Telemetry Telemetry Monitoring Continues Telemetry Heart Rate 73 EKG WV Interval 0.16 EKG QRS Interval 0.06 EKG QT Interval Telemetry Strip Reading SR with PVC 01/28/23 14:00 01/28/23 19:00 01/28/23 20:00 Temperature Temperature Source Pulse Rate Respiratory Rate Blood Pressure Blood Pressure Mean Blood Pressure Location Blood Pressure Position O2 Sat by Pulse Oximetry 95 Oxygen Delivery Method Room Air Nasal Cannula Oxygen Flow Rate 2 Weight Telemetry Type Remote Telemetry Telemetry Monitoring Continues Telemetry Heart Rate 83 EKG WV Interval 0.16 EKG QRS Interval 0.08 EKG QT Interval Telemetry Strip Reading SR 01/28/23 20:00 01/28/23 21:56 01/29/23 01:00 Temperature 98.1 F Temperature Source Oral Pulse Rate 98 Respiratory Rate 20 Blood Pressure 166/85 H Blood Pressure Mean 112 Blood Pressure Location Right Arm Blood Pressure Position Supine O2 Sat by Pulse Oximetry 95 92 L Oxygen Delivery Method Nasal Cannula Nasal Cannula Oxygen Flow Rate 2 2 Weight Telemetry Type Remote Telemetry Telemetry Monitoring Continues Telemetry Heart Rate 98 EKG WV Interval 0.13 EKG QRS Interval 0.08 EKG QT Interval 0.36 Telemetry Strip Reading SR w/ frequent PAC's 01/29/23 02:00 01/29/23 05:04 01/29/23 05:16 Temperature 98.0 F 97.5 F L Temperature Source Oral Temporal Artery Scan Pulse Rate 100 110 H Respiratory Rate 20 20 Blood Pressure 157/66 H 161/77 H Blood Pressure Mean 96 105 Blood Pressure Location Right Arm Left Arm Blood Pressure Position Supine Supine O2 Sat by Pulse Oximetry 90 L 95 93 L Oxygen Delivery Method Nasal Cannula Nasal Cannula Nasal Cannula Oxygen Flow Rate 2 2 2 Weight Telemetry Type Telemetry Monitoring Telemetry Heart Rate EKG WV Interval EKG QRS Interval EKG QT Interval Telemetry Strip Reading 01/29/23 05:16 01/29/23 10:00 01/29/23 07:00 Temperature 97.3 F L Temperature Source Temporal Artery Scan Pulse Rate 100 Respiratory Rate 20 Blood Pressure 158/72 H Blood Pressure Mean 100 Blood Pressure Location Left Arm Blood Pressure Position O2 Sat by Pulse Oximetry 92 L Oxygen Delivery Method Nasal Cannula Oxygen Flow Rate 2 Weight 259 lb Telemetry Type Remote Telemetry Telemetry Monitoring Continues Telemetry Heart Rate 101 H EKG WV Interval 0.08 L EKG QRS Interval 0.05 L EKG QT Interval Telemetry Strip Reading SR 01/29/23 08:00 01/29/23 09:22 Temperature Temperature Source Pulse Rate Respiratory Rate Blood Pressure Blood Pressure Mean Blood Pressure Location Blood Pressure Position O2 Sat by Pulse Oximetry 92 L Oxygen Delivery Method Nasal Cannula Nasal Cannula Oxygen Flow Rate 2 2 Weight Telemetry Type Telemetry Monitoring Telemetry Heart Rate EKG WV Interval EKG QRS Interval EKG QT Interval Telemetry Strip Reading Lab Results Lab Results: Lab Results: Last 24 Hours 01/29/23 04:45 WBC 8.31 RBC 3.54 L Hgb 9.1 L Hct 30.5 L MCV 86.2 MCH 25.7 L MCHC 29.8 L RDW Coeff of Toby 16.9 H Plt Count 300 Immature Gran % (Auto) 0.8 Neut % (Auto) 94.6 H Lymph % (Auto) 4.0 L [place] % (Auto) 0.5 Eos % (Auto) 0.0 Baso % (Auto) 0.1 Neut # (Auto) 7.9 H Lymph # (Auto) 0.3 L [place] # (Auto) 0.0 L Eos # (Auto) 0.0 Baso # (Auto) 0.0 Immature Gran # (Auto) 0.1 Sodium 139.0 Potassium 5.27 H Chloride 107.9 H Carbon Dioxide 23.0 Anion Gap 13.37 BUN 49.1 H Creatinine 3.46 H Estimated GFR (MDRD) 17.00 BUN/Creatinine Ratio 14.19 Glucose 370.4 H D Calcium 8.51 Total Bilirubin 0.29 AST 38.9 ALT 30.8 Alkaline Phosphatase 160.2 H Total Protein 6.83 Albumin 3.79 Globulin 3.04 Albumin/Globulin Ratio 1.24 Additional Comments Additional Comments: I have independently reviewed and interpreted the labs/EKGs/imaging ordered during this hospital stay. I have reviewed outside records that are available in our EMR that pertain to medical stay including imaging/notes/labs from previous visits. Active Medications Active Medications: Medications Generic Name Dose Route Start Last Admin Trade Name Freq PRN Reason Stop Dose Admin Acetaminophen 650 mg 01/25/23 12:54 01/27/23 19:55 Acetaminophen 325 Mg Tablet PO 650 mg Q4H PRN Administration Mild Pain Albuterol Sulfate 2.5 mg 01/28/23 15:23 01/28/23 16:55 Albuterol Sulfate 0.083% Vial.[place] NEB 2.5 mg RTQ4H PRN Administration Wheezing Albuterol/Ipratropium 3 ml 01/28/23 18:00 01/29/23 09:15 Ipratropium/Albuterol Vial.[place] NEB 3 ml RTQ4H DORCAS Administration Aspirin 81 mg 01/26/23 08:30 01/27/23 08:59 Aspirin 81 Mg Tablet. PO 81 mg DAILYWM DORCAS Administration Azithromycin 500 mg 01/27/23 14:00 01/28/23 08:56 Azithromycin 250 Mg Tablet PO 01/30/23 08:59 500 mg DAILY DORCAS Administration Docusate Sodium 100 mg 01/28/23 11:38 01/29/23 09:20 Docusate Sodium 100 Mg Capsule PO 100 mg BID PRN Administration Constipation Duloxetine HCl 30 mg 01/26/23 09:00 01/28/23 08:57 Duloxetine Hcl 30 Mg Capsule. PO 30 mg DAILY DORCAS Administration Ferrous Sulfate 324 mg 01/25/23 21:00 01/28/23 20:57 Ferrous Sulfate 324 Mg Tablet. PO 324 mg BID DORCAS Administration Finasteride 5 mg 01/26/23 09:00 01/28/23 08:56 Finasteride 5 Mg Tablet PO 5 mg DAILY DORCAS Administration Furosemide 40 mg 01/28/23 06:30 01/29/23 05:46 Furosemide 40 Mg Tablet PO 40 mg QDAC DORCAS Administration Gabapentin 600 mg 01/26/23 09:00 01/28/23 08:56 Gabapentin 300 Mg Capsule PO 600 mg DAILY DORCAS Administration Gabapentin 1,200 mg 01/25/23 21:00 01/28/23 20:56 Gabapentin 300 Mg Capsule PO 1,200 mg BEDTIME DORCAS Administration CEFTRIAXONE/D5W 1 GM PREMIX 1 gm in 50 mls @ 75 mls/hr 01/25/23 13:50 01/29/23 09:19 Rocephin 1 Gm/50 Ml D5w IV 01/30/23 13:49 75 mls/hr DAILY DORCAS Administration Insulin Detemir 15 unit 01/25/23 21:00 01/29/23 09:20 Insulin Detemir 100 Units/Ml SUBCUT 15 unit BID DORCAS Administration Insulin Human Lispro 0 unit 01/25/23 13:47 01/29/23 05:51 Insulin Lispro 100 Unit/Ml (3 Ml) Vial SUBCUT 8 unit PRN PRN Administration Hyperglycemia Protocol Methylprednisolone Sodium Succinate 40 mg 01/28/23 15:30 01/29/23 05:26 Methylprednisolone Sod Succ/Pf 125 Mg/2 Ml Vial IVP 40 mg Q8HR DORCAS Administration Ondansetron HCl 4 mg 01/25/23 12:54 01/29/23 09:19 Ondansetron Hcl/Pf 4 Mg/2 Ml Sdv IVP 4 mg Q6H PRN Administration Nausea / Vomiting Pantoprazole Sodium 40 mg 01/26/23 06:30 01/29/23 05:47 Pantoprazole Sodium 40 Mg Tablet. PO 40 mg QDAC DORCAS Administration Polyethylene Glycol 17 gm 01/29/23 09:00 01/29/23 09:20 Polyethylene Glycol 17 Gm Powd.Pack PO 17 gm DAILY DORCAS Administration Sodium Chloride 1 syr 01/28/23 21:00 01/29/23 05:26 0.9% Sodium Chloride 10 Ml Disp.Syrin IVF 1 syr Q8HR DORCAS Administration Tamsulosin HCl 0.8 mg 01/25/23 21:00 01/28/23 20:57 Tamsulosin Hcl 0.4 Mg Cap.Er.24h PO 0.8 mg BEDTIME DORCAS Administration Plan Plan: 1. Acute heart failure with preserved ejection fraction exacerbation - Continue PO lasix. Diuresing well. Echo 6 months ago showed normal EF and diastolic function. Cardiac/low sodium diet. Marcello hose. Elevate legs. PT/OT. Arredondo, I&Os. Daily weights. 2. UTI in setting of straight cathing due to E coli - Rocephin 1 more day then transition to PO, urine culture showing e coli. Arredondo placed. 3. OTTONIEL, stage I in setting of heart failure - worsening due to diuresis and likely worsening prostate cancer, repeat labs in am 4. Community Acquired Pneumonia - CT scan showing pneumonia, consistent with SOB and WBC count, rocephin on board for UTI and PO azithromycin continued, [facility] 5. R Humerus fracture - wearing brace for this, unknown how long patient supposed to wear, PT contacting ortho for instructions on current splinting, states ortho will not do surgery due to location of fracture and pt comorbidities, reports he is to be nonweight bearing on arm currently but allowed to take brace off when sitting and not getting up 5. DMT2, insulin dependent - Continue home long acting, SS ordered. Accuchecks achs. Hold metformin. 5. Hypertension - Continue home meds. Hold losartan. 6. BPH - Continue home meds 7. GERD - Continue home meds 8. Acute on chronic anemia with iron deficiency - improving, Transfused 1U 01/26, hgb improved initially and trending further down. Had hematuria following arredondo insertion but improved. Occult stool negative. Iron low. Continue iron tabs. 9. Constipation - received colace yesterday, started miralax today, monitor Patient is a great candidate for swingbed program. PT/OT eval completed yesterday. Continuing abx x 1 day for pneumonia due to condition. Case management to complete prior authorization to facilitate admission for swingbed. Review Statement Review Statement: I have personally discussed and reviewed the patient's visit/currently labs/imaging/decision making with Dr. Woods, my supervising attending. Greater that 50 minutes spent with patient, 50% of the time spent with this patient was devoted to counseling and coordination of care.
[2023-01-29] MEDS: NEURONTIN PO SCH ×2 (13:22→20:10)
[2023-01-29] MEDS: ZITHROMAX PO SCH (13:22)
[2023-01-29] MEDS: FERROUS SULFATE PO SCH ×2 (13:22→20:09)
[2023-01-29] MEDS: CYMBALTA PO SCH (13:22)
[2023-01-29] MEDS: PROSCAR PO SCH (13:23)
--- NOTE | 2023-01-29 16:57 | CT ---
EXAM: CT ABDOMEN AND PELVIS WITHOUT CONTRAST HISTORY: Abdominal and pelvic pain. TECHNIQUE: CT acquisition of the abdomen and pelvis from the lower thorax through the pelvis without IV contrast administration. 2-D coronal and sagittal reformatted images were obtained from the axial source images. Oral Contrast: None. CT Dose Reduction Techniques Performed: Yes. COMPARISON: 10/30/2022. FINDINGS: Lower Thorax: Small bilateral pleural effusions with left larger than right. Mild atelectasis at the lung bases posteriorly. Normal heart size. No pericardial effusion. Liver: No mass. Normal morphology. Biliary: The gallbladder is surgically absent with clips noted in the gallbladder bed. The bile duct s are normal. Pancreas: No mass or evidence of pancreatitis. No duct dilation. Spleen: No mass. No splenomegaly. Adrenals: No mass. Kidneys/Ureters: No solid renal mass. Benign bilateral renal cysts, unchanged. No calculus or hydro nephrosis. GI Tract: No bowel dilation. No bowel wall thickening. Peritoneal Cavity: No ascites. Retroperitoneum: No fluid collection. Lymph Nodes: Multiple small retroperitoneal lymph nodes, unchanged. Vasculature: There are aortic calcifications. No aortic or iliac aneurysm within limitations of nonc ontrast examination. Pelvis: No free fluid. Shafer catheter in the bladder. Bones/Soft Tissues: There are degenerative changes of the spine. The osseous structures are otherwis e unremarkable with no fracture or lytic lesion. Diffuse subcutaneous adipose tissue edema in the fl anks and anterior abdominal wall inferiorly. IMPRESSION: 1. Small bilateral pleural effusions with left larger than right. 2. Mild atelectasis at the lung bases posteriorly. 3. Status post cholecystectomy. 4. Benign bilateral renal cysts. 5. Atherosclerosis. 6. Shafer catheter in the bladder. 7. Degenerative changes of the spine. 8. Diffuse subcutaneous adipose tissue edema in the flanks and anterior abdominal wall inferiorly. 9. Multiple small retroperitoneal lymph nodes, unchanged. 10. Otherwise unremarkable noncontrast CT scan of the abdomen and pelvis. All CT scans are performed using dose optimization techniques as appropriate to the performed exam an d include at least one of the following: Automated exposure control, adjustment of the mA and/or kV according t o size, and the use of iterative reconstruction technique.
[2023-01-29] MEDS: FLOMAX PO SCH (20:09)
[2023-01-30] MEDS: DUONEB NEB SCH ×3 (01:05→09:35)
[2023-01-30 05:27] LABS: BASOPHILS % (AUTO) 0.1 % (0.0-3.0); HEMATOCRIT 28.9 % (42.0-52.0); HEMOGLOBIN 8.7 g/dl (14.0-18.0); IMMATURE GRANULOCYTE # (AUTO) 0.2 (0.0-1.0); LYMPHOCYTES # (AUTO) 0.5 K/uL (0.60-3.4); LYMPHOCYTES % (AUTO) 2.7 (10.0-50.0); MEAN CORPUSCULAR HEMOGLOBIN 25.8 pg (27.0-31.0); MEAN CORPUSCULAR HGB CONC 30.1 (31.8-35.4); MEAN CORPUSCULAR VOLUME 85.8 fl (80.0-94.0); MONOCYTES # (AUTO) 0.4 K/uL (0.4-2.0); MONOCYTES % (AUTO) 2.5 (0-10); NEUTROPHILS # (AUTO) 16.4 K/ul (2.0-6.9); NEUTROPHILS % (AUTO) 93.7 % (42.2-75.2); PLATELET COUNT 354 10^3/uL (140-440); RED BLOOD COUNT 3.37 10^6/ul (4.70-6.10); WHITE BLOOD COUNT 17.47 K/ul (4.2-10.2)
[2023-01-30] MEDS: SOLU-MEDROL 125 MG IVP SCH (05:27)
[2023-01-30 05:48] LABS: ALANINE AMINOTRANSFERASE 29.3 U/L (0-50); ALBUMIN 3.79 g/dL (3.5-5.0); ALKALINE PHOSPHATASE 157.2 U/L (56-119); BILIRUBIN,TOTAL 0.27 mg/dL (0.2-1.3); CALCIUM 8.55 mg/dL (8.4-10.2); CARBON DIOXIDE 23.3 mmol/L (22-30.0); GLUCOSE 359.4 mg/dL (74-106); POTASSIUM 5.33 mmol/L (3.5-5.1); SODIUM 135.3 mmol/L (134.5-145); TOTAL PROTEIN 6.84 g/dL (6.3-8.2)
[2023-01-30] MEDS: PROTONIX PO SCH (05:48)
[2023-01-30] MEDS: LASIX TAB PO SCH (05:48)
[2023-01-30 06:03] LABS: BLOOD UREA NITROGEN 66.9 mg/dL (9-20)
[2023-01-30 06:04] LABS: CREATININE 4.89 mg/dL (0.60-1.10)
[2023-01-30] MEDS: HUMALOG SUBCUT PRN ×2 (06:18→12:14)
[2023-01-30] MEDS ORDERED: BUMEX IVP ONE (08:05)
[2023-01-30] MEDS: PROSCAR PO SCH (10:27)
[2023-01-30] MEDS: ROCEPHIN 1 GM/50 ML D5W 1 GM/50 ML BAG IV SCH (10:27)
[2023-01-30] MEDS: COLACE PO PRN (10:27)
[2023-01-30] MEDS: FERROUS SULFATE PO SCH (10:27)
[2023-01-30] MEDS: CYMBALTA PO SCH (10:28)
[2023-01-30] MEDS: NEURONTIN PO SCH (10:28)
[2023-01-30] MEDS: LEVEMIR SUBCUT SCH (10:28)
[2023-01-30] MEDS: MIRALAX PO SCH (10:28)
[2023-01-30 10:33] VITALS: BP 149/63; RESP 23; TEMP 97.5
[2023-01-30] MEDS ORDERED: BUMEX ONE (10:44)
--- NOTE | 2023-01-30 10:51 | DCSUM ---
Admission Date Admission Date: 01/25/23 Discharge Date Discharge Date: 01/30/23 Admission Diagnosis Admission Diagnosis: OTTONIEL, CHF exacerbation, UTI Discharge Diagnosis Discharge Diagnosis: OTTONIEL, UTI, CAP, CHF exacerbation Hospital Provider Hospital Provider: KOKI MALIK, [facility] Primary Care Physician: BUD MARTINES MD Summary of History and Physical Summary of History and Physical: Patient is an 87-year-old male from home with past medical history of chronic kidney disease, history of prostate cancer, arthritis, COPD, hypertension, diabetes, anemia who presented to ER with lower extremity edema that has been worsening over the last week and shortness of breath. He states that his breathing is always "bad" but has been worse over the last few days. states that since he broke his right arm he has been sleeping in his recliner. He tries to keep his legs elevated but they are often down. No changes in diet or recent medications he does take Lasix and has been compliant with this. He has had about 15 pound weight gain. He had an echo in August 2022 with a normal EF. He denies any chest pain. He does straight cath himself and follows with a specialist for his urinary issues. In November he was referred to nephrology for his chronic kidney disease. In the ER he was found to have significant pitting edema. Creatinine 2.77 when his baseline is normally 1.2- 1.5. BNP 1170. UA mildly suspect for urinary tract infection. Procal mildly elevated at 0.06. He denies any fevers. Chest x-ray was negative for any pleural effusions but did mention atelectasis versus pneumonia. He was given 60 of Lasix IV. Patient admitted to [facility]. 1. Acute heart failure with preserved ejection fraction exacerbation - Lasix 60 IV given in ER. With OTTONIEL, will start lasix 40 mg bid IVP but monitor renal function closely. Echo 6 months ago showed normal EF and diastolic function. Hold home lasix. Cardiac/low sodium diet. Marcello hose. Elevate legs. PT/OT. Shafer, I&Os. Daily weights. BNP 1170. 2. UTI in setting of straight cathing - Rocephin ordered, urine culture pending. Shafer placed. 3. OTTONIEL, stage I in setting of heart failure - Patient appears fluid overloaded, will diurese and carefully monitor renal function and urine output. 4. DMT2, insulin dependent - Continue home long acting, SS ordered. Accuchecks achs. Hold metformin. 5. Hypertension - Continue home meds. Hold losartan. 6. BPH - Continue home meds 7. GERD - Continue home meds Hospital Course Subjective: Over course of stay, patient was diuresed with lasix 40 mg BID. It was stopped on day 3 of admission and transitioned to oral after decrease in edema and shortness of breath. Urine culture showed E. coli on culture and was treated with rocephin x 5 days with today being day 6. Renal function was monitored daily and showed mild improvement initially and then declined over the last 2-3 days from 2.77 on admission up to 4.89 today. Urine output declined over the past 24 hours to 45 mL. All medications were assessed for nephrotoxicity during stay as well. On day 3 of stay patient had complaints of worsening shortness of breath that provider ordered CT of chest which showed pneumonia in multiple lobes. He was started on azithromycin at that time. Steroids and nebs were also added to patient's treatment plan the following day. Patient has history of untreated prostate cancer and follows with Dr. Ivey. Patient also his R humerus fracture from fall on 11/29/22 and remains non-weight bearing with immobilizer in place. Appearance: Pleasant, Alert and Ill-appearing HEENT: MMM and Supple CVS: No Murmur and No Rubs Abdomen: Soft and Non-Tender Respiratory: Other (mild accessory muscle use) Extremities: Other (+2 edema bilaterally) Vital Signs: Most Recent Vital Signs Temperature 97.5 F L 01/30/23 10:00 Temperature Source Temporal Artery Scan 01/30/23 10:00 Temperature Source Infrared 01/25/23 10:38 Pulse Rate 101 H 01/30/23 10:00 Respiratory Rate 23 H 01/30/23 10:00 Blood Pressure 149/63 H 01/30/23 10:00 Blood Pressure Mean 91 01/30/23 10:00 Blood Pressure Left Arm 151/59 01/25/23 17:30 Blood Pressure Location Left Arm 01/30/23 10:00 Blood Pressure Position Sitting 01/30/23 10:00 O2 Sat by Pulse Oximetry 93 L 01/30/23 10:00 Oxygen Delivery Method Nasal Cannula 01/30/23 10:00 Oxygen Flow Rate 4.5 01/30/23 10:00 Height 5 ft 7 in 01/28/23 08:13 Weight 263 lb 12.8 oz 01/30/23 05:52 Telemetry Type Remote Telemetry 01/30/23 07:00 Telemetry Monitoring Continues 01/30/23 07:00 Telemetry Heart Rate 98 01/30/23 07:00 Telemetry SPO2 94 05/15/19 07:00 EKG MN Interval 0.14 01/30/23 07:00 EKG QRS Interval 0.07 01/30/23 07:00 EKG QT Interval 0.36 01/29/23 01:00 Telemetry Strip Reading nsr 01/30/23 07:00 Lab Results Last 24 Hours: 01/30/23 04:57 WBC 17.47 H D RBC 3.37 L Hgb 8.7 L Hct 28.9 L MCV 85.8 MCH 25.8 L MCHC 30.1 L RDW Coeff of Toby 17.0 H Plt Count 354 Immature Gran % (Auto) 1.0 Neut % (Auto) 93.7 H Lymph % (Auto) 2.7 L Mayes % (Auto) 2.5 Eos % (Auto) 0.0 Baso % (Auto) 0.1 Neut # (Auto) 16.4 H Lymph # (Auto) 0.5 L Mayes # (Auto) 0.4 Eos # (Auto) 0.0 Baso # (Auto) 0.0 Immature Gran # (Auto) 0.2 Sodium 135.3 Potassium 5.33 H Chloride 104.0 Carbon Dioxide 23.3 Anion Gap 13.33 BUN 66.9 H* Creatinine 4.89 H* D Estimated GFR (MDRD) 11.00 BUN/Creatinine Ratio 13.68 Glucose 359.4 H Calcium 8.55 Total Bilirubin 0.27 AST 23.0 ALT 29.3 Alkaline Phosphatase 157.2 H Total Protein 6.84 Albumin 3.79 Globulin 3.05 Albumin/Globulin Ratio 1.24 Discharge Instructions Discharge Planning: Discharge Planning > 40 minutes If patient is discharged with left ventricular systolic dysfunction: no Transfer to [facility] under the care of Dr. Mckeon - Haiist. Discussed with provider that after patient is medically stable and clear we would be glad to accept him into our swingbed program upon discharge from [facility]. Discharge Medications: Medications at Discharge (Home Meds & RX) sitagliptin phosphate 100 mg tablet (Januvia) 100 mg PO DAILY #90 tabs 10/02/22 finasteride 5 mg tablet See Rx Instructions .Route .COMPLEX #30 tabs 10/08/22 metformin 1,000 mg tablet See Rx Instructions .Route .COMPLEX #90 tabs 10/08/22 tamsulosin 0.4 mg capsule See Rx Instructions .Route .COMPLEX #60 caps 10/08/22 duloxetine 30 mg capsule,delayed release See Rx Instructions .Route .COMPLEX #30 caps 10/30/22 furosemide 40 mg tablet See Rx Instructions .Route .COMPLEX #30 tabs 10/30/22 gabapentin 600 mg tablet See Rx Instructions .Route .COMPLEX #90 tabs 10/30/22 aspirin See Rx Instructions .Route .COMPLEX #13 tabs 11/26/22 aspirin 81 mg tablet,delayed release See Rx Instructions .Route .COMPLEX #30 ea 11/26/22 losartan 50 mg tablet See Rx Instructions .Route .COMPLEX #30 tabs 11/26/22 potassium chloride 10 mEq tablet,extended release(part/cryst) 10 meq PO QDAY #90 tabs 01/01/23 insulin detemir U-100 100 unit/mL (3 mL) subcutaneous pen (Levemir FlexPen) 15 unit subcut BID 01/04/23 metolazone 2.5 mg tablet 2.5 mg PO QDAY #3 tabs 01/04/23 pantoprazole 40 mg tablet,delayed release (Protonix) 40 mg PO QDAY #30 tabs 01/08/23 ferrous sulfate 325 mg (65 mg iron) tablet 325 mg PO BID #60 tabs 01/15/23 Discharge Plan Discharge Discharge Orders: Discharge Patient (ONCE); Ordered 01/30/23 Ordered By: RODOLFO BRADY Activity Restrictions/Additional Instructions: Non-weight bearing to R arm Transfer to [facility] under the care of Dr. Mckeon Patient Disposition: TSF SHORT-TRM HOSP Did you review [place] RAIL OPERATOR for ALL controlled substances?: No Discussed opioids are addictive and Narcan is available by prescription or from pharmacy.: No Condition: Poor
== END 2023-01-30 12:20 | disposition short-term general hospital (02) | DRG 291 ==
LOC: ED 10:35 → MEDSURG B 12:26
PROVIDERS: ADMIT Hospitalist; ATTEND Nurse Practitioner Family
DX: R32 Unspecified urinary incontinence; S42.301A Unspecified fracture of shaft of humerus, right arm, initial encounter for closed fracture; N40.1 Benign prostatic hyperplasia with lower urinary tract symptoms; E11.65 Type 2 diabetes mellitus with hyperglycemia; J18.9 Pneumonia, unspecified organism; D64.9 Anemia, unspecified; N18.9 Chronic kidney disease, unspecified; R60.0 Localized edema; D50.0 Iron deficiency anemia secondary to blood loss (chronic); K21.9 Gastro-esophageal reflux disease without esophagitis; K59.00 Constipation, unspecified; E87.70 Fluid overload, unspecified; N17.9 Acute kidney failure, unspecified; R06.02 Shortness of breath; R29.6 Repeated falls; I10 Essential (primary) hypertension; J44.9 Chronic obstructive pulmonary disease, unspecified; N39.0 Urinary tract infection, site not specified; R63.5 Abnormal weight gain; I50.33 Acute on chronic diastolic (congestive) heart failure; C61 Malignant neoplasm of prostate; Z79.01 Long term (current) use of anticoagulants; R09.02 Hypoxemia